=== PATIENT | male | born 1935 | race Caucasian/White ===

== ENCOUNTER → 2016-09-14 | Outpatient (CLI) | payer OTHER ==
[~2016-09-14] MED LIST: AMLO5TAB4 PO; HYDR12.56 PO; TCMD2 PO
[2016-09-14 16:21] LABS: BLOOD UREA NITROGEN 21 mg/dl (7-18); BUN/CREATININE RATIO 19.3 (10-20)
== END | disposition home or self-care (01) ==
LOC: C.LAB 14:56
PROVIDERS: ATTEND Urology
DX: R31.9 Hematuria, unspecified (principal)

== ENCOUNTER → 2016-09-14 | Outpatient (CLI) | payer OTHER | END | disposition home or self-care (01) | LOC: C.LABSPEC 17:11 | PROVIDERS: ATTEND Urology | DX: R31.9 Hematuria, unspecified (principal) ==

== ENCOUNTER → 2016-10-07 | Outpatient (CLI) | payer OTHER ==
[~2016-10-07] MED LIST changes: +OPTIRAY 320 IV PRN
--- NOTE | 2016-10-07 09:42 | DIAGNOSTIC IMAGING REPORT ---
ABDOMEN AND PELVIS CT WITH AND WITHOUT IV CONTRAST, UROGRAM PROTOCOL CT DOSE: 1703.56 mGycm HISTORY: Hematuria. TECHNIQUE: Multiaxial CT images of the abdomen and pelvis were performed both before and after the use of intravenous contrast to evaluate the urinary system. Maximal intensity projection images were performed at the workstation by the radiologist. COMPARISON STUDY: None. FINDINGS: No renal or ureteral calculi. No hydronephrosis. The bilateral renal collecting systems are not well opacified resulting in suboptimal evaluation. However, there are no definite suspicious filling defects. The proximal to mid bilateral ureters are not significantly opacified but are normal in course and caliber. No suspicious filling defects within the distal bilateral ureters. A 3 cm low-density lesion within the lower pole the left kidney does not appear to enhance and likely represents a cyst. 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 The lung bases are clear. Tiny fat-containing bilateral inguinal hernias. The prostate gland is enlarged measuring up to 7.5 cm in diameter. This protrudes into the bladder base. The liver, gallbladder, pancreas, spleen, and adrenal glands are unremarkable. There is a left retroaortic renal vein. No retroperitoneal lymphadenopathy. No bowel wall thickening or obstruction. Colonic diverticulosis. Normal appendix. IMPRESSION: 1. No renal or ureteral stones. No hydronephrosis. 2. No suspicious filling defects seen within the opacified bilateral renal collecting systems, ureters, or bladder with limitations as described above. 3. A 3 cm left lower pole renal cyst. 4. Prostatomegaly. 5. 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 Electronically signed by: Mt Henriquez M.D. 10/07/2016 9:40 AM Dictated Date/Time: 10/07/2016 9:29 AM
== END | disposition home or self-care (01) ==
LOC: C.CTS 08:51
PROVIDERS: ATTEND Urology
DX: R31.9 Hematuria, unspecified (principal); N28.1 Cyst of kidney, acquired; I72.2 Aneurysm of renal artery

== ENCOUNTER 2016-10-18 17:16 | Emergency (ER) | payer OTHER ==
[~2016-10-18] VITALS: Ht 179.1 cm; Wt 83.0 kg
[~2016-10-18 17:16] MED LIST changes: -OPTIRAY 320 IV PRN
[2016-10-18 17:26] VITALS: TEMP 36.8; Ht 179.1 cm; Wt 83.0 kg
[2016-10-18 18:23] LABS: BASO % 0.3 %; BASO ABS # 0.03 K/uL (0-0.2); COMPLETE YES; HEMATOCRIT 43.5 % (42-52); IG% 0.2 %; LYMPH % 22.7 %; LYMPH ABS # 2.36 K/uL (1.2-3.4); MEAN CELL VOLUME 90.6 fL (80-100); MEAN CORPUSCULAR HEMOGLOBIN 31.5 pg (25-34); MEAN CORPUSCULAR HGB CONC 34.7 g/dl (32-36); MONO % 7.9 %; NEUT % 66.9 %; PLATELET COUNT 306 K/uL (130-400); WHITE BLOOD COUNT 10.41 K/uL (4.8-10.8)
[2016-10-18 18:29] LABS: URINE APPEARANCE CLEAR (CLEAR); URINE BILIRUBIN NEG (NEG); URINE COLOR YELLOW; URINE NITRITE NEG (NEG); URINE PH 7.5 (4.5-7.5); URINE SPECIFIC GRAVITY 1.003 (1.000-1.030); UROBILINOGEN NEG (NEG); ZZUR CULT IF INDIC CLEAN CATCH NO
[2016-10-18 18:31] LABS: MANUAL MICROSCOPIC REQUIRED? NO; REVIEW REQ? NO
[2016-10-18 18:46] LABS: BUN/CREATININE RATIO 18.3 (10-20); CREATININE 1.1 mg/dl (0.60-1.40); POTASSIUM 4.1 mmol/L (3.5-5.1)
[2016-10-18 18:51] VITALS: BP 145/72; PULSE 64; O2SAT 95
--- NOTE | 2016-10-18 19:05 | EMERGENCY ROOM VISIT NOTE ---
History Report prepared by Lee: Katerina Norton Under the Supervision of: Dr. Niko Karimi D.O. First contact with patient: 17:39 Chief Complaint: HEMATURIA Stated Complaint: PASSING BLOOD CLOT History of Present Illness The patient is an 81 year old male who presents to the Emergency Room with complaints of persistent hematuria for the past 1 month. He has a history of an enlarged prostate and reports he followed up with his Urologist, Dr. Odom, 2 weeks ago, and produced "unremarkable" urine tests. The hematuria cleared up for approximately 1 week, then came back, so he had a CT scan last week. This morning, he started passing larger clots. He called Dr. Odom's office but could not be seen today, and was referred to the ED for further evaluation. He notes he has been trying to drink a lot of water, and immediately after drinking , his urine seems to clear up, but then the clots come back. The patient notes he is on daily Coumadin. His last INR was checked approximately 1 week ago. He denies any other symptoms at today's visit. 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 A total of 10 systems reviewed and were otherwise negative. Past Medical & Surgical Medical Problems: (1) BPH (benign prostatic hyperplasia) (2) Enlarged prostate Family History Normal Social History Smoking Status: Former Smoker Alcohol Use: none Drug Use: none Marital Status: Housing Status: lives with significant other Occupation Status: retired Current/Historical Medications Scheduled Amlodipine Besylate (Norvasc), 5 MG PO DAILY Hydrochlorothiazide (Hctz), 12.5 MG PO DAILY Warfarin Sod (Coumadin), 4 MG PO WK Warfarin Sod (Coumadin), 2 MG PO [id number] Allergies Coded Allergies: No Known Allergies (Unverified , 10/18/16) Physical Exam Vital Signs Date Time Temp Pulse Resp B/P Pulse Ox O2 Delivery O2 Flow Rate FiO2 10/18/16 18:51 64 18 145/72 95 Room Air 10/18/16 17:26 36.8 81 18 168/90 95 Room Air Physical Exam CONSTITUTIONAL/VITAL SIGNS: Reviewed / noted above. GENERAL: Non-toxic in appearance. INTEGUMENTARY: Warm, dry, and [place]. HEAD: Normocephalic. EYES: without scleral icterus or trauma. ENT/OROPHARYNX: clear and moist. LYMPHADENOPATHY/NECK: Is supple without lymphadenopathy or meningismus. RESPIRATORY: Lungs clear and equal. CARDIOVASCULAR: Regular rate and rhythm. GI/ABDOMEN: Soft and nontender. No organomegaly or pulsatile mass. No rebound or guarding. Normal bowel sounds. EXTREMITIES: Warm and well perfused. BACK: No CVA tenderness. NEUROLOGICAL: Intact without focal deficits. PSYCHIATRIC: normal affect. MUSCULOSKELETAL: Normally developed with good muscle tone. Medical Decision & Procedures Laboratory Results 10/18/16 18:00 Red Blood Count 4.80, Mean Corpuscular Volume 90.6, Mean Corpuscular Hemoglobin 31.5, Mean Corpuscular Hemoglobin Concent 34.7, Mean Platelet Volume 10.0, Neutrophils (%) (Auto) 66.9, Lymphocytes (%) (Auto) 22.7, Monocytes (%) (Auto) 7.9, Eosinophils (%) (Auto) 2.0, Basophils (%) (Auto) 0.3, Neutrophils # (Auto) 6.97, Lymphocytes # (Auto) 2.36, Monocytes # (Auto) 0.82, Eosinophils # (Auto) 0.21, Basophils # (Auto) 0.03 10/18/16 18:00 Test 10/18/16 18:00 10/18/16 18:08 10/18/16 18:50 White Blood Count 10.41 K/uL (4.8-10.8) Red Blood Count 4.80 M/uL (4.7-6.1) Hemoglobin 15.1 g/dL (14.0-18.0) Hematocrit 43.5 % (42-52) Mean Corpuscular Volume 90.6 fL (80-100) Mean Corpuscular Hemoglobin 31.5 pg (25-34) Mean Corpuscular Hemoglobin Concent 34.7 g/dl (32-36) Platelet Count 306 K/uL (130-400) Mean Platelet Volume 10.0 fL (7.4-10.4) Neutrophils (%) (Auto) 66.9 % Lymphocytes (%) (Auto) 22.7 % Monocytes (%) (Auto) 7.9 % Eosinophils (%) (Auto) 2.0 % Basophils (%) (Auto) 0.3 % Neutrophils # (Auto) 6.97 K/uL (1.4-6.5) Lymphocytes # (Auto) 2.36 K/uL (1.2-3.4) Monocytes # (Auto) 0.82 K/uL (0.11-0.59) Eosinophils # (Auto) 0.21 K/uL (0-0.5) Basophils # (Auto) 0.03 K/uL (0-0.2) RDW Standard Deviation 46.7 fL (36.4-46.3) RDW Coefficient of Variation 14.1 % (11.5-14.5) Immature Granulocyte % (Auto) 0.2 % Immature Granulocyte # (Auto) 0.02 K/uL (0.00-0.02) Anion Gap 5.0 mmol/L (3-11) Est Creatinine Clear Calc Drug Dose 54.3 ml/min Estimated GFR () 72.1 Estimated GFR (Non- 62.2 BUN/Creatinine Ratio 18.3 (10-20) Calcium Level 9.0 mg/dl (8.5-10.1) Urine Color YELLOW Urine Appearance CLEAR (CLEAR) Urine pH 7.5 (4.5-7.5) Urine Specific [place] 1.003 (1.000-1.030) Urine Protein NEG (NEG) Urine Glucose (UA) NEG (NEG) Urine Ketones NEG (NEG) Urine Occult Blood 3+ (NEG) Urine Nitrite NEG (NEG) Urine Bilirubin NEG (NEG) Urine Urobilinogen NEG (NEG) Urine Leukocyte Esterase TRACE (NEG) Urine WBC (Auto) 1-5 /hpf (0-5) Urine RBC (Auto) 5-10 /hpf (0-4) Urine Hyaline Casts (Auto) 0 /lpf (0-5) Urine Epithelial Cells (Auto) 5-10 /lpf (0-5) Urine Bacteria (Auto) NEG (NEG) Bedside Prothrombin Time INR 3.1 (0.9-1.1) Laboratory results as stated above per my review. ED Course 1739: Previous medical records were reviewed. The patient was evaluated in room B9. A complete history and physical examination was performed. 1851: Nursing informed me the patients INR was 3.1. 5: I reevaluated the patient. He is resting comfortably. I discussed his results and discharge instructions and he verbalized complete understanding and agreement. Medical Decision The differential diagnoses considered include UTI, bladder tumor, elevated INR and kidney stone. This is an 81-year-old male who presents to the ED with a chief complaint of hematuria. The patient states that he is seeing Dr. Barillas for hematuria over the past month. The patient states that he had a CT scan last week and also some blood work. He has had a history of 3 prostate surgeries. He states that he had some hematuria this morning and then it resolved and a little tonight and then it resolved again. He is scheduled to have a cystoscopy sometime in the near future. His vital signs are normal. His exam was unremarkable. His INR is 3.1. He is on Coumadin for history of DVT. CBC is normal. PRP is normal. Urine did not show any evidence of infection. There was 3+ blood and 5-10 RBCs. The patient was told results. He is felt to be stable for discharge and outpatient follow-up with Dr. Barillas. Impression Primary Impression: Hematuria Scribe Attestation The scribe's documentation has been prepared under my direction and personally reviewed by me in its entirety. I confirm that the note above accurately reflects all work, treatment, procedures, and medical decision making performed by me. Departure Information Dispostion Home / Self-Care Referrals Osmani Valencia D.O. (PCP) Dylon Odom MD Patient Instructions My [facility] Additional Instructions Follow-up with Dr. Odom for continued evaluation of your hematuria. Return for any additional concerns or worsening.
== END 2016-10-18 19:19 | disposition home or self-care (01) ==
LOC: C.EDB 17:16
DX: R31.9 Hematuria, unspecified (principal); N40.0 Benign prostatic hyperplasia without lower urinary tract symptoms; Z87.891 Personal history of nicotine dependence; Z79.01 Long term (current) use of anticoagulants; Z79.899 Other long term (current) drug therapy

== ENCOUNTER → 2017-10-10 | Outpatient (CLI) | payer OTHER | END | disposition home or self-care (01) | LOC: C.PATHSPEC 16:52 | PROVIDERS: ATTEND Urology | DX: R31.9 Hematuria, unspecified (principal) ==

== ENCOUNTER 2020-03-07 11:26 | Inpatient (IN) ==
[2020-03-07] MEDS ORDERED: SODIUM CHLORIDE 0.9% 500 ML IV ONE ×2 (12:14→15:58)
[2020-03-07 12:54] LABS: Basophils # (auto) 0.01 K/uL (0-0.2); Basophils % (auto) 0.1 %; Eosinophils # (auto) 0.04 K/uL (0-0.5); Eosinophils % (auto) 0.3 %; Hematocrit (blood only) 40.7 % (42-52); Hemoglobin 13.5 g/dL (14.0-18.0); Immature Granulocytes # (auto) 0.04 K/uL (0.00-0.02); Immature Granulocytes % (auto) 0.3 %; Lymphocytes # (auto) 1.38 K/uL (1.2-3.4); Lymphocytes % (auto) 9.8 %; Mean Corpuscular Hemoglobin 29.3 pg (25-34); Mean Corpuscular Hgb Conc 33.2 g/dL (32-36); Mean Corpuscular Volume 88.5 fL (80-100); Mean Platelet Volume 9.8 fL (7.4-10.4); Neutrophils # (auto) 11.95 K/uL (1.4-6.5); Neutrophils % (auto) 84.5 %; Platelet Count 342 K/uL (130-400); RDW Coefficient of Variation 14.6 % (11.5-14.5); RDW Standard Deviation 47.2 fL (36.4-46.3); White Blood Count 14.12 K/uL (4.8-10.8)
[2020-03-07 13:03] LABS: INR 2.4 (0.9-1.1); Prothrombin Time 23.8 Seconds (9.0-12.0)
[2020-03-07 13:10] LABS: Alanine Aminotransferase 22 U/L (12-78); Albumin Level 3.9 gm/dl (3.4-5.0); Aspartate Aminotransferase 20 U/L (15-37); BUN Creatinine Ratio 15.6 (10-20); Blood Urea Nitrogen 20 mg/dl (7-18); Calcium 9.4 mg/dl (8.5-10.1); Carbon Dioxide 23 mmol/L (21-32); Chloride 104 mmol/L (98-107); Est GFR (African American) 57.3; Est GFR (Non-African American) 49.4; Glucose 113 mg/dl (70-99); Potassium 3.9 mmol/L (3.5-5.1); Sodium 137 mmol/L (136-145)
[2020-03-07 13:11] LABS: Appearance Urine Turbid (Clear); Color Urine Red
[2020-03-07 13:12] LABS: Protein Urine Positive (Negative); Specific Gravity Urine 1.027 (1.000-1.030)
[2020-03-07 13:13] LABS: Alkaline Phosphatase 111 U/L (45-117); Bilirubin,Total 0.6 mg/dl (0.2-1); Globulin 4.1 gm/dl (2.5-4.0)
[2020-03-07 13:13] LABS: Sulfosalicylic Acid Urine Positive (Negative)
[2020-03-07 13:16] LABS: Epithelial Cell Urine 0-5 /lpf (0-5); RBC Urine >30 /hpf (0-4); WBC Urine >30 /hpf (0-5)
[2020-03-07 13:17] LABS: Bacteria Urine Negative (Negative)
[2020-03-07] MEDS ORDERED: IOVERSOL 100ml IV ONE (13:52)
--- NOTE | 2020-03-07 14:21 | CT Scan Report ---
CT OF THE ABDOMEN AND PELVIS WITH CONTRAST CLINICAL HISTORY: Hematuria. COMPARISON STUDY: CT of the abdomen and pelvis October 07, 2016. TECHNIQUE: Following IV administration of 94 mL of Optiray-320, axial images of the abdomen and pelvi s were obtained from the lung bases to the proximal femurs. Images were reviewed in the axial, sagitt al, and coronal planes. IV contrast was administered without complication. Automated exposure contro l was utilized for the study. A dose lowering technique was utilized adhering to the principles of A JOSUE. CT DOSE: 492.72 mGy.cm FINDINGS: Lung bases are unremarkable. The liver, spleen, adrenal glands, right kidney and pancreas a re normal. A 1.4 cm lesion within the lower pole of the left kidney measures above water attenuation but this has decreased in size since CT of October 07, 2016. This likely reflects a partially collapsed cyst. There is no biliary or pancreatic ductal dilatation. There is colonic diverticulosis without e vidence for acute diverticulitis. There is no lymphadenopathy. Prostate is markedly enlarged, measuri ng 8.1 cm in transverse dimension. The gland is heterogeneous. There is asymmetric enhancement within the left anterior aspect of the gland. There is a large amount of hyperdense material within the pro state. This favors hemorrhage. Within the left posterior aspect of the bladder, there is an area of i ncreased attenuation. Active extravasation cannot be excluded. There is no hydronephrosis. No renal, ureteral or bladder calculi are present. A 9 mm left renal artery aneurysm is unchanged since CT of A pril 2016. No upper tract urothelial lesions are identified although sensitivity is diminished on this portal venous phase exam. A small 5 mm sclerotic focus within the left ischial tuberosity is ne w since prior CT. IMPRESSION: 1. Markedly enlarged heterogeneous prostate. Large amount of hyperdense material within the bladder s uggestive of clot. Underlying mass cannot be excluded. Small foci of increased attenuation within the left posterior aspect of the bladder could reflect active extravasation. No hydronephrosis. No urina ry calculi. 2. 1.4 cm hypodense left renal lesion which likely reflects a partially collapsed cyst when correlati ng with prior CT. 3. New indeterminate 5 mm sclerotic lesion within the left ischial tuberosity. ACT 112: Negative or not required by law. Electronically signed by: Antonio Hairston M.D. 03/07/2020 2:20 PM
--- NOTE | 2020-03-07 18:29 | Urology Consultation ---
Date of Consultation March 07, 2020 Assessment & Plan (1) Hematuria: GH with retention. Hx of TURP x 2 with GH in past. Never as severe. Seen urgently in ER due to severity of issues. Difficult flores. [address] by myself with extensive clot irrigation and evacuation. Patient tolerated well. Was prepped and draped in standard fashion. Patient running clear with light pink urine and no further clot. CBI to titrate to clear overnight. Admitted to Hospitalist after irrigation for monitoring. On Coumadin and normal level. Monitor. Complicated history was reviewed and summarized as above. All imaging reviewed. Monitor. Present on Admission?: Yes (2) BPH (benign prostatic hyperplasia): (3) Urinary retention: History of Present Illness History of Present Illness Consult for urinary issues with hematuria and clot retention. Patient has mild to moderate discomfort in pelvis and groin going to back and side in waves at baseline with occ episodes of severe pain. Is dealing with acute illness due to retention with significant spasms. Has been deconditioned from this. Has decreased mobility significantly with acute issues. Denies significant previous episodes of hematuria. Is still able to void. Had surgery for detacted retina. History of DVT with coumadin. GH has happened multiple times in past but never as severe. Was golfing and bleeding started and dealt with for last 2-3 days before getting severe last night into this morning. Has had some minor urinary issues in the past. Had TURP x 2 over last 20 years. \ No severe nausea or vomiting. Currently no fevers. No significant family history of malignancy. Drastic improvement after irrigation and clot evacuation Allergies Allergy/AdvReac Type Severity Reaction Status Date / Time No Known Allergies Allergy Unverified 03/07/20 14:08 Home Medications Home Medications Medication Instructions Recorded Confirmed Type amlodipine 5 mg tablet 5 mg PO QAM 06/05/19 03/07/20 History warfarin 2 mg tablet 2 mg PO QAM 06/05/19 03/07/20 History Patient History Medical History No pertinent past medical history Surgical History Hx of cataract surgery Family History Brother Colorectal cancer Father Lung cancer Grandfather (Paternal) Lung cancer Social History Smoking Status: Never smoker Hx Alcohol Use: Yes marital status: current occupational status: retired Feels Safe at Home: Yes Review of Systems Review of Systems: All systems reviewed & are unremarkable except as noted in HPI & below Physical Exam Physical Exam: General: Alert and oriented x 3 in no acute distress. Patient is well nourished and well kept. HEENT: Normocephalic Atraumatic. Inspection normal. Cranial Nerves 2-12 Grossly intact. Nares are clear. Neck is supple. Normal inspection of face. Normal inspection of neck. Neurologic: No deficits on inspection. Baseline for motor function and sensory. Psychologic: Normal affect. Respiratory: Nonlabored. No use of accessory muscles. No tachypnea or dyspnea. Cardiovascular: No tachycardia Skin: [place] and Dry. No rashes or visible lesions. Extremities: Moving without issues. No motor deficits on inspection Lymphatics: No edema Abdomen: Soft Non-distended. No acites. No rebound or guarding. : Large clot evacuated. CBI through [address] 24Fr[address] Light pink after irrigating. Results & Data ([facility]) Vital Signs (Past 12 Hours) Vital Signs Temp Pulse Pulse Resp BP Pulse Ox 03/07/20 17:00 104 H 20 130/64 97 03/07/20 15:00 78 20 128/79 96 03/07/20 13:11 81 20 131/83 95 03/07/20 11:46 36.7 C 92 H 17 100 PG Care Time/CCT Total # of Minutes Spent Total Time Spent with Patient: Total time spent is greater than 50% in coordination of care (as documented) at patient's floor/unit and/or counseling patient: Coding Level of Care Code 83947 Inpt Consult Level 5 Diagnoses Hematuria R31.9 BPH (benign prostatic hyperplasia) N40.0 Urinary retention R33.9
--- NOTE | 2020-03-07 19:47 | Emergency Department Note ---
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 The patient denies any fevers, chills, cough, congestion, nausea, vomiting, diarrhea. The patient reports he walked into his urologist office and was referred to emergency dep artment. On arrival the patient is in no acute distress, afebrile stable vital signs. He has mild discomfort of his suprapubic area without any discrete tenderness. By the patient's report feeling as though he cannot urinate post void bladder scan demonstrated only 200-300cc. WBC 14, nonspecific. H/H 13.5/40.7 approximate 2 prior values, platelets within normal limits. INR is therapeutic at 2.4. Chemistry without acidosis. Electrolytes and LFTs unremarkable. UA without evidence of infection but with RBCs. CT done pelvis was performed demonstrates enlarged heterogenous prostate. There is large amount of hyperdense material in the bladder suggestive of clot. There is question of a small foci of increased attenuation which could reflect active extravasation. Of note, there is no hydronephrosis or urinary calculi. On reevaluation the patient continued to complain of urgency and and feeling as though he could not urinate. However post void bladder scan again without any significant retention. Attempts at catheterization to help relieve some of his urgency which is likely related to passing of clots but was unsuccessful despite repeat attempts with coud catheter by nursing. I did review the case with urology on-call, Dr. Barber, who did agree to come to emergency department and placed three-way catheter for CBI. [facility] service was consulted who admitted the patient for further management. Triage Nursing notes reviewed and agree them. Prior medical records reviewed Vital Signs: reviewed and remarkable for no significant abnormalities Differential diagnosis: Renal colic, UTI, appendicitis, diverticulitis, mesenteric ischemia, aortic pathology, infections, inflammatory bowel disease, PUD, biliary pathology, as well as other pathologies. ER treatment provided: See below. Diagnostics interpreted by me: Cardiac Monitoring: An order for continuous cardiac monitoring was placed and demonstrated NSR, 85 bpm, no ectopy. Laboratory studies: See below Imaging studies: CT OF THE ABDOMEN AND PELVIS WITH CONTRAST CLINICAL HISTORY: Hematuria. COMPARISON STUDY: CT of the abdomen and pelvis October 07, 2016. TECHNIQUE: Following IV administration of 94 mL of Optiray-320, axial images of the abdomen and pelvis were obtained from the lung bases to the proximal femurs. Images were reviewed in the axial, sagittal, and coronal planes. IV contrast was administered without complication. Automated exposure control was utilized for the study. A dose lowering technique was utilized adhering to the principles of ALARA. CT DOSE: 492.72 mGy.cm FINDINGS: Lung bases are unremarkable. The liver, spleen, adrenal glands, right kidney and pancreas are normal. A 1.4 cm lesion within the lower pole of the left kidney measures above water attenuation but this has decreased in size since CT of October 07, 2016. This likely reflects a partially collapsed cyst. There is no biliary or pancreatic ductal dilatation. There is colonic diverticulosis without evidence for acute diverticulitis. There is no lymphadenopathy. Prostate is markedly enlarged, measuring 8.1 cm in transverse dimension. The gland is heterogeneous. There is asymmetric enhancement within the left anterior aspect of the gland. There is a large amount of hyperdense material within the prostate. This favors hemorrhage. Within the left posterior aspect of the bladder, there is an area of increased attenuation. Active extravasation cannot be excluded. There is no hydronephrosis. No renal, ureteral or bladder calculi are present. 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 No upper tract urothelial lesions are identified although sensitivity is diminished on this portal venous phase exam. A small 5 mm sclerotic focus within the left ischial tuberosity is new since prior CT. IMPRESSION: 1. Markedly enlarged heterogeneous prostate. Large amount of hyperdense material within the bladder suggestive of clot. Underlying mass cannot be excluded. Small foci of increased attenuation within the left posterior aspect of the bladder could reflect active extravasation. No hydronephrosis. No urinary calculi. 2. 1.4 cm hypodense left renal lesion which likely reflects a partially collapsed cyst when correlating with prior CT. 3. New indeterminate 5 mm sclerotic lesion within the left ischial tuberosity. Consultation(s): Urology on-call, Dr. Barber. [facility] hospitalist service. HPI: The patient is a pleasant 85-year-old gentleman with a past medical history of BPH, h/o TURP, history of DVT on Coumadin who presents emergency department with complaints of gross bloody urine that began last night. The patient denies any fevers, chills, cough, congestion, nausea, vomiting, diarrhea. The patient reports he walked into his urologist office and was referred to emergency depar tment. ROS: See above HPI for pertinent positives & negatives. A total of 10 systems reviewed and were otherwise negative. PAST MEDICAL HISTORY:See Below PAST SURGICAL HISTORY:See Below FAMILY HISTORY:See Below SOCIAL HISTORY:See Below HOME MEDICATIONS:See Below ALLERGIES:See Below VITALS:See Below PHYSICAL EXAMINATION: GENERAL: Awake, alert, well-appearing, in no distress HENT: Normocephalic, atraumatic. Oropharynx unremarkable. EYES: Sclera non-icteric. Mild right injection of left conjunctiva s/p retinal surgery. NECK: Supple. No nuchal rigidity. FROM. No JVD. RESPIRATORY: Clear to auscultation. CARDIAC: Regular rate, normal rhythm. Extremities warm and well perfused. Pulses equal. ABDOMEN: Soft, non-distended. Mild suprapubic discomfort without discrete tenderness to palpation. No rebound or guarding. No masses. RECTAL: Deferred. MUSCULOSKELETAL: Chest examination reveals no tenderness. The back is symmetrical on inspection without obvious abnormality. There is no CVA tenderness to palpation. No joint edema. LOWER EXTREMITIES: Calves are equal size bilaterally and non-tender. No edema. No discoloration. NEURO: Normal sensorium. No sensory or motor deficits noted. SKIN: No rash or jaundice noted. 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 Surgical History History of detached retina repair Hx of cataract surgery S/P TURP Family History Brother Colorectal cancer Father Lung cancer Grandfather (Paternal) Lung cancer Social History Smoking Status: Former smoker Hx Alcohol Use: No Hx Substance Use: No Preferred Language: [place] Communication Ability: Effective Car Groomer Required: No Beliefs That Will Affect Care: None marital status: Current Living Situation: Spouse current occupational status: retired Feels Safe at Home: Yes Safety Concerns: Feels Safe At This Time Allergies Allergies Allergy/AdvReac Type Severity Reaction Status Date / Time No Known Allergies Allergy Unverified 03/07/20 14:08 Home Meds Home Medications Medication Instructions Recorded Confirmed amlodipine 5 mg tablet 5 mg PO QAM 06/05/19 03/07/20 warfarin 2 mg tablet 2 mg PO QAM 06/05/19 03/07/20 Results & Data (ED) Vital Signs Vital Signs - 24 hr 03/07/20 11:46 03/07/20 13:11 03/07/20 15:00 Temperature 36.7 C Temperature Source Oral Pulse Rate 92 H Pulse Rate [Finger] 81 78 Respiratory Rate 17 20 20 Respiratory Effort / Characteristics Non-Labored Non-Labored Spontaneous Non-Labored Spontaneous Respiratory Depth Normal Normal Respiratory Pattern Regular Regular Regular Blood Pressure [Left Arm] 131/83 128/79 Blood Pressure Mean [Left Arm] 99 95 Pulse Oximetry 100 95 96 Oxygen Delivery Method Room Air Room Air Room Air Sepsis Recent Fever Within 48 Hours No Sepsis New/Unexplained Change in Mental Status N/A Sepsis Action Taken by Nursing No Action Required 03/07/20 17:00 Temperature Temperature Source Pulse Rate Pulse Rate [Finger] 104 H Respiratory Rate 20 Respiratory Effort / Characteristics Non-Labored Spontaneous Respiratory Depth Normal Respiratory Pattern Regular Blood Pressure [Left Arm] 130/64 Blood Pressure Mean [Left Arm] 86 Pulse Oximetry 97 Oxygen Delivery Method Room Air Sepsis Recent Fever Within 48 Hours Sepsis New/Unexplained Change in Mental Status Sepsis Action Taken by Nursing Laboratory Data Attestation: I reviewed the patient's lab results. Result diagrams: 03/07/20 12:45 03/07/20 12:45 Lab Results 03/07/20 03/07/20 03/07/20 Range/Units 12:45 12:45 12:45 WBC 14.12 H (4.8-10.8) K/uL RBC 4.60 L (4.7-6.1) M/uL Hgb 13.5 L (14.0-18.0) g/dL Hct 40.7 L (42-52) % MCV 88.5 (80-100) fL MCH 29.3 (25-34) pg MCHC 33.2 (32-36) g/dL RDW Std Deviation 47.2 H (36.4-46.3) fL RDW Coeff of Dre 14.6 H (11.5-14.5) % Plt Count 342 (130-400) K/uL MPV 9.8 (7.4-10.4) fL Immature Gran % (Auto) 0.3 % Neut % (Auto) 84.5 % Lymph % (Auto) 9.8 % Hettinger % (Auto) 5.0 % Eos % (Auto) 0.3 % Baso % (Auto) 0.1 % Neut # (Auto) 11.95 H (1.4-6.5) K/uL Lymph # (Auto) 1.38 (1.2-3.4) K/uL Hettinger # (Auto) 0.70 H (0.11-0.59) K/uL Eos # (Auto) 0.04 (0-0.5) K/uL Baso # (Auto) 0.01 (0-0.2) K/uL Immature Gran # (Auto) 0.04 H (0.00-0.02) K/uL PT 23.8 H (9.0-12.0) Seconds INR 2.4 H (0.9-1.1) Sodium 137 (136-145) mmol/L Potassium 3.9 (3.5-5.1) mmol/L Chloride 104 (98-107) mmol/L Carbon Dioxide 23 (21-32) mmol/L Anion Gap 10.0 (3-11) BUN 20 H (7-18) mg/dl Creatinine 1.30 (0.6-1.4) mg/dl Est Cr Clr Drug Dosing Not Reportable Est GFR ( Amer) 57.3 Est GFR (Non-Af Amer) 49.4 BUN/Creatinine Ratio 15.6 (10-20) Glucose 113 H (70-99) mg/dl Calcium 9.4 (8.5-10.1) mg/dl Total Bilirubin 0.6 (0.2-1) mg/dl AST 20 (15-37) U/L ALT 22 (12-78) U/L Alkaline Phosphatase 111 (45-117) U/L Total Protein 8.0 (6.4-8.2) gm/dl Albumin 3.9 (3.4-5.0) gm/dl Globulin 4.1 H (2.5-4.0) gm/dl Albumin/Globulin Ratio 1.0 (0.9-2) Urine Color Urine Appearance (Clear) Urine pH (4.5-7.5) Ur Specific Gray (1.000-1.030) Urine Protein (Negative) Urine Glucose (UA) (Negative) Urine Ketones (Negative) Urine Blood (Negative) Urine Nitrite (Negative) Urine Bilirubin (Negative) Urine Urobilinogen (Negative) Ur Leukocyte Esterase (Negative) Urine RBC (0-4) /hpf Urine WBC (0-5) /hpf Ur Epithelial Cells (0-5) /lpf Urine Bacteria (Negative) 03/07/20 Range/Units 12:50 WBC (4.8-10.8) K/uL RBC (4.7-6.1) M/uL Hgb (14.0-18.0) g/dL Hct (42-52) % MCV (80-100) fL MCH (25-34) pg MCHC (32-36) g/dL RDW Std Deviation (36.4-46.3) fL RDW Coeff of Dre (11.5-14.5) % Plt Count (130-400) K/uL MPV (7.4-10.4) fL Immature Gran % (Auto) % Neut % (Auto) % Lymph % (Auto) % Hettinger % (Auto) % Eos % (Auto) % Baso % (Auto) % Neut # (Auto) (1.4-6.5) K/uL Lymph # (Auto) (1.2-3.4) K/uL Hettinger # (Auto) (0.11-0.59) K/uL Eos # (Auto) (0-0.5) K/uL Baso # (Auto) (0-0.2) K/uL Immature Gran # (Auto) (0.00-0.02) K/uL PT (9.0-12.0) Seconds INR (0.9-1.1) Sodium (136-145) mmol/L Potassium (3.5-5.1) mmol/L Chloride (98-107) mmol/L Carbon Dioxide (21-32) mmol/L Anion Gap (3-11) BUN (7-18) mg/dl Creatinine (0.6-1.4) mg/dl Est Cr Clr Drug Dosing Est GFR ( Amer) Est GFR (Non-Af Amer) BUN/Creatinine Ratio (10-20) Glucose (70-99) mg/dl Calcium (8.5-10.1) mg/dl Total Bilirubin (0.2-1) mg/dl AST (15-37) U/L ALT (12-78) U/L Alkaline Phosphatase (45-117) U/L Total Protein (6.4-8.2) gm/dl Albumin (3.4-5.0) gm/dl Globulin (2.5-4.0) gm/dl Albumin/Globulin Ratio (0.9-2) Urine Color Red Urine Appearance Turbid A (Clear) Urine pH (4.5-7.5) Ur Specific Gray 1.027 (1.000-1.030) Urine Protein Positive H (Negative) Urine Glucose (UA) (Negative) Urine Ketones (Negative) Urine Blood (Negative) Urine Nitrite (Negative) Urine Bilirubin (Negative) Urine Urobilinogen (Negative) Ur Leukocyte Esterase (Negative) Urine RBC >30 H (0-4) /hpf Urine WBC >30 H (0-5) /hpf Ur Epithelial Cells 0-5 (0-5) /lpf Urine Bacteria Negative (Negative) Administered Medications Discontinued Medications Sodium Chloride (Nss) 500 mls @ 999 mls/hr IV .Q31M ONE Stop: 03/07/20 12:44 Last Infusion: 03/07/20 13:45 Dose: 0 mls/hr Documented by: [id number] Admin: 03/07/20 13:08 Dose: 999 mls/hr Documented by: [id number] Sodium Chloride (Nss) 500 mls @ 999 mls/hr IV .Q31M ONE Stop: 03/07/20 16:28 Last Infusion: 03/07/20 17:52 Dose: 0 mls/hr Documented by: [id number] Admin: 03/07/20 17:18 Dose: 999 mls/hr Documented by: [id number] Ioversol (Ioversol 100ml) 94 ml IV ONCE ONE Stop: 03/07/20 13:53 Last Admin: 03/07/20 13:52 Dose: 94 ml Documented by: [id number] Blood Pressure Blood Pressure Findings: Normal blood pressure Blood Pressure Disposition: further management by hospitalist Discharge Plan Visit Data Chief Complaint: Hematuria Stated Complaint: PEEING BLOOD ED Provider: Clay Velasquez Discharge Problem: Hematuria, Abnormal CT scan, pelvis, 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
[2020-03-07] MEDS ORDERED: ACETAMINOPHEN 325 MG TAB PO PRN (20:51)
[2020-03-07] MEDS ORDERED: ONDANSETRON INJ 2 MG/ML 2 ML VIAL IV PRN (20:51)
--- NOTE | 2020-03-07 20:58 | History & Physical Report ---
Date of Service March 07, 2020 Assessment & Plan (1) Hematuria: CBI per Urology to continue overnight. Monitor H/H in am and transfuse as needed. (2) Urinary retention: Flores placed and draining well. (3) BPH (benign prostatic hyperplasia): h/o this s/p TURP with gross hematuria issues in the past. Plan per Urology. 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 Will restart in a few days. 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 (6) HTN (hypertension): (7) Abnormal CT scan, pelvis: There is a small sclerotic lesion on ischial tuberosity which is new. Will need workup as outpatient. (8) DVT prophylaxis: SCDs Full Code Dispo-to home when medically stable. Christianne Mcmullen DO [facility] Hospitalist Admission and Anticipated Discharge Date Admission Date: March 07, 2020 History of Present Illness Chief Complaint: gross hematuria and acute urinary retention Primary Care Provider: Osmani Valencia DO 85 yo M with a h/o TURP for BPH in the past x 2 and a h/o gross hematuria in the past. He is on coumadin for a recurrent DVT and has had trials of being off this but the blood clot in his leg would reoccur. INR is 2.4 today. He reports feeling well yesterday and played a round of golf with friends, when afterwards he noted blood in his urine. This was painless and he continued to drink water in an effort to stay hydrated and flush this through. At some point he developed acute urinary retention which prompted him to present to the ER. He denies any other symptoms including no chest pain, SOB, n/v, lightheadedness, etc. Urology was contacted and a flores was placed which was notably difficult to insert. CBI was started in the ER and he was recommended for admission. The urine turned clear and he was hemodynamically stable. No vitamin K was given and coumadin was held. He was stating he was hungry and was admitted to the hospitalist service and given a diet with Urology to see him in the morning. 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 Surgical History History of detached retina repair Hx of cataract surgery S/P TURP Family History Brother Colorectal cancer Father Lung cancer Grandfather (Paternal) Lung cancer Social History Smoking Status: Former smoker Hx Alcohol Use: No Hx Substance Use: No Preferred Language: [place] Communication Ability: Effective Wire Inserter Required: No Beliefs That Will Affect Care: None marital status: Current Living Situation: Spouse current occupational status: retired Feels Safe at Home: Yes Safety Concerns: Feels Safe At This Time Review of Systems Review of Systems: All systems reviewed & are unremarkable except as noted in HPI & below Physical Exam Physical Exam: CONSTITUTIONAL: WNWD, vitals as above, generally well- appearing EYES: pupils are equal and round bilaterally, normal conjunctivae, no scleral icterus ENT: external ear and nose normal, oropharynx clear, MMM RESPIRATORY: clear to auscultation bilaterally, no crackles, rales or wheezes, normal respiratory effort CARDIOVASCULAR: regular rate and rhythm, S1 and 2 heard without murmurs, gallops or rubs, no JVD, no peripheral edema, nondistended, no guarding MUSCULOSKELETAL: strength 5/5 throughout, head is normocephalic and atraumatic, neck supple, normal palpation of chest wall without tenderness SKIN: warm and dry NEUROLOGIC: No facial palsy, no dysarthria. CN 2-12 grossly intact, normal cognition, normal speech, no tremor, no gross focal deficits. PSYCHIATRIC: alert cooperative and oriented to person, place and time. Results & Data Results & Data ([facility]) Vital Signs (Past 12 Hours) Vital Signs Temp Pulse Pulse Resp BP BP Pulse Ox 03/07/20 20:33 36.7 C 89 20 152/74 H 96 03/07/20 19:54 89 18 139/76 97 03/07/20 19:19 91 H 21 132/87 96 03/07/20 17:00 104 H 20 130/64 97 03/07/20 15:00 78 20 128/79 96 03/07/20 13:11 81 20 131/83 95 03/07/20 11:46 36.7 C 92 H 17 100 Laboratory Results Short CBC 03/07/20 Range/Units 12:45 WBC 14.12 H (4.8-10.8) K/uL Hgb 13.5 L (14.0-18.0) g/dL Hct 40.7 L (42-52) % Plt Count 342 (130-400) K/uL BMP 03/07/20 12:45 Sodium 137 Potassium 3.9 Chloride 104 Carbon Dioxide 23 BUN 20 H Creatinine 1.30 Glucose 113 H Calcium 9.4 Liver Function 03/07/20 Range/Units 12:45 Total Bilirubin 0.6 (0.2-1) mg/dl AST 20 (15-37) U/L ALT 22 (12-78) U/L Alkaline Phosphatase 111 (45-117) U/L Albumin 3.9 (3.4-5.0) gm/dl Urine 03/07/20 Range/Units 12:50 Urine Color Red Urine Appearance Turbid A (Clear) Urine pH (4.5-7.5) Ur Specific [place] 1.027 (1.000-1.030) Urine Protein Positive H (Negative) Urine Glucose (UA) (Negative) Diagnostic Findings CT OF THE ABDOMEN AND PELVIS WITH CONTRAST CLINICAL HISTORY: Hematuria. COMPARISON STUDY: CT of the abdomen and pelvis October 07, 2016. CT DOSE: 492.72 mGy.cm FINDINGS: Lung bases are unremarkable. The liver, spleen, adrenal glands, right kidney and pancreas are normal. A 1.4 cm lesion within the lower pole of the left kidney measures above water attenuation but this has decreased in size since CT of October 07, 2016. This likely reflects a partially collapsed cyst. There is no biliary or pancreatic ductal dilatation. There is colonic diverticulosis without evidence for acute diverticulitis. There is no lymphadenopathy. Prostate is markedly enlarged, measuring 8.1 cm in transverse dimension. The gland is heterogeneous. There is asymmetric enhancement within the left anterior aspect of the gland. There is a large amount of hyperdense material within the prostate. This favors hemorrhage. Within the left posterior aspect of the bladder, there is an area of increased attenuation. Active extravasation cannot be excluded. There is no hydronephrosis. No renal, ureteral or bladder calculi are present. 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 No upper tract urothelial lesions are identified although sensitivity is diminished on this portal venous phase exam. A small 5 mm sclerotic focus within the left ischial tuberosity is new since prior CT. IMPRESSION: 1. Markedly enlarged heterogeneous prostate. Large amount of hyperdense material within the bladder suggestive of clot. Underlying mass cannot be excluded. Small foci of increased attenuation within the left posterior aspect of the bladder could reflect active extravasation. No hydronephrosis. No urinary calculi. 2. 1.4 cm hypodense left renal lesion which likely reflects a partially collapsed cyst when correlating with prior CT. 3. New indeterminate 5 mm sclerotic lesion within the left ischial tuberosity. Code Status & VTE Plan VTE Prophylaxis Plan VTE Prophylaxis will be ordered: Yes
[2020-03-08] MEDS ORDERED: TRAMADOL HCL 50 MG TABLET PO PRN (00:37)
[2020-03-08 07:55] LABS: INR 2.3 (0.9-1.1); Prothrombin Time 23.5 Seconds (9.0-12.0)
[2020-03-08 08:11] LABS: Hematocrit (blood only) 31.1 % (42-52); Hemoglobin 10.3 g/dL (14.0-18.0); Mean Corpuscular Hemoglobin 29.4 pg (25-34); Mean Corpuscular Hgb Conc 33.1 g/dL (32-36); Mean Corpuscular Volume 88.9 fL (80-100); Mean Platelet Volume 9.9 fL (7.4-10.4); Platelet Count 283 K/uL (130-400); RDW Coefficient of Variation 14.6 % (11.5-14.5); RDW Standard Deviation 47.7 fL (36.4-46.3); White Blood Count 14.03 K/uL (4.8-10.8)
[2020-03-08 08:25] LABS: BUN Creatinine Ratio 17.8 (10-20); Calcium 8.4 mg/dl (8.5-10.1); Creatinine Clr Calc Pharmacy 55.9 ml/min; Est GFR (African American) 80.6; Est GFR (Non-African American) 69.5; Potassium 3.8 mmol/L (3.5-5.1)
[2020-03-08] MEDS ORDERED: PHYTONADIONE 2.5 MG in SODIUM CHLORIDE 0.9% 50 ML IV ONE (09:00)
--- NOTE | 2020-03-08 16:06 | Discharge Summary ---
Date of Service March 08, 2020 Admission HPI Per Admitting Provider 85 yo M with a h/o TURP for BPH in the past x 2 and a h/o gross hematuria in the past. He is on coumadin for a recurrent DVT and has had trials of being off this but the blood clot in his leg would reoccur. INR is 2.4 today. He reports feeling well yesterday and played a round of golf with friends, when afterwards he noted blood in his urine. This was painless and he continued to drink water in an effort to stay hydrated and flush this through. At some point he developed acute urinary retention which prompted him to present to the ER. He denies any other symptoms including no chest pain, SOB, n/v, lightheadedness, etc. Urology was contacted and a flores was placed which was notably difficult to insert. CBI was started in the ER and he was recommended for admission. The urine turned clear and he was hemodynamically stable. No vitamin K was given and coumadin was held. He was stating he was hungry and was admitted to the hospitalist service and given a diet with Urology to see him in the morning. Admission Exam Per Admitting Provider CONSTITUTIONAL: WNWD, vitals as above, generally well-appearing EYES: pupils are equal and round bilaterally, normal conjunctivae, no scleral icterus ENT: external ear and nose normal, oropharynx clear, MMM RESPIRATORY: clear to auscultation bilaterally, no crackles, rales or wheezes, normal respiratory effort CARDIOVASCULAR: regular rate and rhythm, S1 and 2 heard without murmurs, gallops or rubs, no JVD, no peripheral edema, nondistended, no guarding MUSCULOSKELETAL: strength 5/5 throughout, head is normocephalic and atraumatic, neck supple, normal palpation of chest wall without tenderness SKIN: warm and dry NEUROLOGIC: No facial palsy, no dysarthria. CN 2-12 grossly intact, normal cognition, normal speech, no tremor, no gross focal deficits. PSYCHIATRIC: alert cooperative and oriented to person, place and time. Principal Diagnosis Gross hematuria Acute urinary retention Discharge Exam CONSTITUTIONAL: WNWD, vitals as above, generally well-appearing EYES: pupils are equal and round bilaterally, normal conjunctivae, no scleral icterus ENT: external ear and nose normal, oropharynx clear, MMM RESPIRATORY: clear to auscultation bilaterally, no crackles, rales or wheezes, normal respiratory effort CARDIOVASCULAR: regular rate and rhythm, S1 and 2 heard without murmurs, gallops or rubs, no JVD, no peripheral edema, nondistended, no guarding MUSCULOSKELETAL: strength 5/5 throughout, head is normocephalic and atraumatic, neck supple, normal palpation of chest wall without tenderness SKIN: warm and dry NEUROLOGIC: No facial palsy, no dysarthria. CN 2-12 grossly intact, normal cognition, normal speech, no tremor, no gross focal deficits. PSYCHIATRIC: alert cooperative and oriented to person, place and time. Discharge Data Allergies Allergy/AdvReac Type Severity Reaction Status Date / Time No Known Allergies Allergy Unverified 03/07/20 14:08 Consultations 03/07/20 17:19 ED Decision to Admit Stat 03/07/20 20:51 Consult Case Management - Discharge Planning Routine Consult Urology Routine Ordered Studies 03/07/20 12:15 CT abd pelvis IV con only Stat CT OF THE ABDOMEN AND PELVIS WITH CONTRAST CLINICAL HISTORY: Hematuria. FINDINGS: Lung bases are unremarkable. The liver, spleen, adrenal glands, right kidney and pancreas are normal. A 1.4 cm lesion within the lower pole of the left kidney measures above water attenuation but this has decreased in size since CT of October 07, 2016. This likely reflects a partially collapsed cyst. There is no biliary or pancreatic ductal dilatation. There is colonic diverticulosis without evidence for acute diverticulitis. There is no lymphadenopathy. Prostate is markedly enlarged, measuring 8.1 cm in transverse dimension. The gland is heterogeneous. There is asymmetric enhancement within the left anterior aspect of the gland. There is a large amount of hyperdense material within the prostate. This favors hemorrhage. Within the left posterior aspect of the bladder, there is an area of increased attenuation. Active extravasation cannot be excluded. There is no hydronephrosis. No renal, ureteral or bladder calculi are present. 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 No upper tract urothelial lesions are identified although sensitivity is diminished on this portal venous phase exam. A small 5 mm sclerotic focus within the left ischial tuberosity is new since prior CT. IMPRESSION: 1. Markedly enlarged heterogeneous prostate. Large amount of hyperdense material within the bladder suggestive of clot. Underlying mass cannot be excluded. Small foci of increased attenuation within the left posterior aspect of the bladder could reflect active extravasation. No hydronephrosis. No urinary calculi. 2. 1.4 cm hypodense left renal lesion which likely reflects a partially collapsed cyst when correlating with prior CT. 3. New indeterminate 5 mm sclerotic lesion within the left ischial tuberosity. Hospital Course (1) Hematuria: Pt presented with gross hematuria and acute urinary retention, feeling better with Flores placement. CBI per Urology started in the ER and continued overnight. He is on warfarin and initial INR was 2.4. He was admitted to the floor and continuous bladder irrigation was running overnight. The following day repeat INR was 2.3 and his urine was still pinkish. He was given 2.5 IV vitamin K and as the time progressed through the afternoon his urine began to clear. His H&H was notably lower at 10/ from 13 the day prior. He will continue to stay off the warfarin and keep the Flores in place for the next few days until follow-up with urology, Dr. Elias Barber. He will stay off the warfarin contingent upon primary care doctor given permission to restart this. At the primary care follow-up it will be important for repeat check of his H&H. He also was found to have a 5 mm sclerotic lesion within the left ischial tuber osity. Further workup may be needed. CT abdomen pelvis also revealed markedly enlarged heterogeneous prostate with a large amount of hyperdense material within the bladder suggestive of clot. An underlying mass could not be excluded. Small foci of increased attenuation within the left posterior aspect of the bladder could reflect active extravasation. There was no urinary calculi are no hydronephrosis noted. At time of discharge she was mentating and ambulating at baseline and tolerating p.o. He was hemodynamically stable and afebrile and oxygenating well on room air. He was sent home in stable condition with close primary care follow-up next week and early follow-up with urology, Dr. Elias Barber, for Flores removal. 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: (6) Abnormal CT scan, pelvis: Total Time Total Time Spent Total Time Spent (In Minutes): 60 Total Time Includes: Examination of the Patient, Discharge Planning, Medication Reconciliation and Communication With Other Providers Discharge Plan Discharge Items Patient Disposition: Home - Self-Care Reason For Visit: GROSS HEMATURIA Discharge Diagnosis: Gross hematuria Acute urinary retention Condition on Discharge: Good Activity: Resume your previous activity Non-emergency contact: Primary Care Provider and Urologist Call non-emergency contact if: you have any medication questions, your symptoms worsen, your pain is not controlled, your pain is worsening, your pain is unusual for you, your pain is concerning for you and you have a fever Follow-up/Referrals: Osmani Valencia, [Primary Care Provider] - Diet: Regular Addtl Attending Provider Instructions: Please take all medications as instructed on discharge list below. Please follow-up with Dr. Barber and [facility] regarding indwelling Flores removal and checking on your hematuria situation. Until that time please stay off of warfarin. Someone from my staff will contact you on Tuesday after the weekend to help set up a primary care appointment with Dr. Valencia. At this time he will guide you on further warfarin dosing and when to restart. You were found to have a 5 mm area of sclerosis in one of your hip bones. Please go over this with Dr. Valencia as it may require further workup to ensure it is benign. If you develop other problems over the weekend please seek immediate medical attention. It was a pleasure taking care of you! Please call if you have any questions or problems. You can reach a [facility] hospitalist on duty at [facility] 24 hours a day by calling [phone]. Take care of yourself. Christianne Mcmullen DO [facility] Pending Studies at Discharge: No Stand-Alone Forms: My [facility] Medications and DC Order Prescriptions: Continued amlodipine [Norvasc] 5 mg tablet 5 mg PO QAM RF: 0 Discontinued warfarin 2 mg tablet 2 mg PO QAM RF: 0 Discharge Orders: Discharge Order (Routine); Ordered 03/08/20 Ordered By: Christianne Ward/Other Patient Handouts: What is Hematuria?, ED Flores Catheter, Care Admission Data Admit Date/Time: 03/07/20 18:49 Attending Provider: Christianne Mcmullen Admit Provider: Christianne Mcmullen Primary Care Provider: Sulman,Osmani A. Other Providers: Jasmyn Sky ; Elias Barber
[2020-03-08] MEDS ORDERED: POLYETHYLENE (MIRALAX) 17 GM PACK PO PRN (17:26)
== END 2020-03-08 18:55 | disposition home or self-care (01) | DRG 696 ==
LOC: ED 11:26 → 2N 18:49

== ENCOUNTER 2023-11-25 15:39 | Inpatient (IN) ==
[2023-11-25 17:01] LABS: Appearance Urine Clear (Clear); Bacteria Urine Automated None Seen (None Seen); Bilirubin Urine Negative (Negative); Blood Urine Negative (Negative); Color Urine Yellow; Glucose Urine UA Negative (Negative); Ketones Urine Negative (Negative); Leukocyte Esterase Urine Negative (Negative); Nitrite Urine Negative (Negative); Protein Urine 1+ (Negative); RBC Urine Automated 0-2 /hpf (0-2); Specific Gravity Urine 1.019 (1.000-1.030); Urobilinogen Urine Negative (Negative); WBC Urine Automated 0-5 /hpf (0-5); pH Urine 5.5 (4.5-7.5)
[2023-11-25 17:08] LABS: Hematocrit (blood only) 33.5 % (42.0-52.0); Hemoglobin 11.4 g/dl (14.0-18.0); Mean Corpuscular Hemoglobin 29.9 pg (25.0-34.0); Mean Corpuscular Volume 87.9 fL (80.0-100.0); Mean Platelet Volume 9.1 fL (9.4-12.4); Platelet Count 307 K/uL (130-400); RDW Coefficient of Variation 17.1 % (11.5-14.5); RDW Standard Deviation 51.1 fL (36.4-46.3); Red Blood Count 3.81 M/uL (4.70-6.10)
[2023-11-25 17:13] LABS: Alanine Aminotransferase 20 U/L (7-52); Albumin Globulin Ratio 0.9 (0.9-2); Albumin Level 3.4 gm/dl (3.4-5.0); Alkaline Phosphatase 99 U/L (34-104); Anion Gap 8 (3-11); Aspartate Aminotransferase 20 U/L (13-39); BUN Creatinine Ratio 39.5 (10-20); Bilirubin,Total 0.3 mg/dl (0.2-1.0); Blood Urea Nitrogen 32 mg/dl (6-23); Calcium 9.2 mg/dl (8.6-10.3); Carbon Dioxide 32 mmol/L (21-32); Chloride 90 mmol/L (98-107); Est GFR (African American) 91.3 ml/min; Est GFR (Non-African American) 78.8 ml/min; Globulin 3.6 gm/dl (2.5-4.0); Glucose 154 mg/dl (70-99(Fasting)); Sodium 130 mmol/L (136-145)
[2023-11-25 17:22] LABS: INR 0.9 (0.9-1.1); Partial Thromboplastin Ratio 0.9; Partial Thromboplastin Time 25 Seconds (21-31); Prothrombin Time 10.2 Seconds (9.0-12.0)
[2023-11-25 17:33] LABS: Basophils # (auto) 0.02 K/uL (0.00-0.20); Basophils % (auto) 0.4 %; Dohle Bodies 1+; Immature Granulocytes # (auto) 0.08 K/uL (0.01-0.20); Immature Granulocytes % (auto) 1.6 %; Lymphocytes # (auto) 0.29 K/uL (1.20-3.40); Lymphocytes % (auto) 5.7 %; Monocytes # (auto) 0.65 K/uL (0.11-0.59); Monocytes % (auto) 12.7 %; Neutrophils # (auto) 4.06 K/uL (1.40-6.50); Neutrophils % (auto) 79.6 %; Polychromasia 1+; Toxic Granulation 1+
--- NOTE | 2023-11-25 19:30 | Emergency Department Note ---
Impression & Plan Acute hyponatremia ADMIT ED Provider Note HPI: History obtained from patient. 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 Patient was seen by his PCP earlier today and referred to the emergency room due to some concerning lab work as well as concern that the patient is having failure to thrive. He has had diminished p.o. intake and increasing weakness. On arrival here to the ED the patient is hemodynamically stable, he is noted to be mildly tachycardic, he is saturating well on room air on arrival. Patient is afebrile on arrival. ROS: - Per HPI Differential Diagnosis: Acute kidney injury/dehydration, malnutrition, critical electrolyte abnormalities to include hyponatremia, hypokalemia, sepsis, amongst other potential pathologies. *Outpatient medications and allergy history reviewed. 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 Lab work shows no leukocytosis, hemoglobin is stable 11.4, platelet count is normal. CMP does not show any critical findings, sodium is mildly reduced at 130, potassium is normal, chloride is slightly low at 90, BUN is mildly elevated at 32, there is no acute kidney injury, TSH is within normal limits. Urinalysis does not show any obvious infection. Upon review of the patient's outpatient PCP visit with Dr. Valencia, chest x-ray performed in the outpatient setting did not show any obvious pneumonia. There was concern the patient might be dehydrated and has been having some failure to thrive and therefore he was referred to the ED. I do feel at this point the patient would benefit from admission, he looks very listless, he was given IV fluids here in the ED but does not appear well for discharge. I discussed the patient's presentation with the on-call [facility] hospitalist, Dr. Dumont, and he will admit the patient for further management. Patient's family is in agreement to this plan the patient was admitted in stable condition. Consultants/Discussions held with other healthcare providers: -Hospitalist, Dr. Dumont Disposition discussion held by myself with: -Patient and family at the bedside Diagnosis: 1. Hyponatremia, acute 2. Elevated BUN, acute 3. History of squamous cell carcinoma of the tongue, currently on chemo and radiation therapy 4. Diminished p.o. intake 5. 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, stage I Encounter for pre-operative examination Cancer related pain Prostatitis Elevated prostate specific antigen (PSA) Dysuria Abnormal CT scan, pelvis (Acute) DVT prophylaxis Paresthesia Enlarged prostate Hematuria (Acute) Urinary retention (Acute) Voiding difficulty (Acute) Pulmonary nodule Prostate cancer (~2020) on oral chemotherapy and monthly hormone injections HTN (hypertension) BPH (benign prostatic hyperplasia) (Chronic 08/07/13) 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 There is notation of indeterminate midthoracic vertebral body anterior wedge compression Chronic rhinitis History of COVID-2020- no hosp; resolved Surgical History (Updated 09/21/23 @ 10:52 by Karlie Campos RN) S/P bronchoscopy with transbronchial biopsies/brushings - 08/30/23 Dr. Farah History of laryngoscopy with biopsy of left base of tongue - 09/15/23 Dr. Marquis Status post epidural steroid injection 05/2023 Hx of colonoscopy S/P TURP History of detached retina repair Hx of cataract surgery x2 Family History (Updated 09/21/23 @ 13:22 by Karlie Campos RN) Brother Colorectal cancer, Onset Age: 50 Father Lung cancer Grandfather (Paternal) Lung cancer Mother Gangrene Sister Breast cancer Brother Leukemia Social History (Updated 09/21/23 @ 13:26 by Karlie Campos RN) Smoking Status: Former smoker Tobacco Type: Cigarettes Age Started Using Tobacco: 19; Age Quit Using Tobacco: 64; packs per day: 1; Second Hand Exposure: No; Do You Dip or Chew Tobacco: No; Hx Alcohol Use: No Hx Substance Use: No Preferred Language: Upper Sorbian Communication Ability: Effective Magnetic Prospecting Supervisor Required: No Beliefs That Will Affect Care: None marital status: Current Living Situation: Significant Other current occupational status: retired 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; 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; 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 How many Children do You have: 1 How many Children do You have Comment: 1 adopted; Feels Safe at Home: Yes Childhood Exposure to Second-Hand Smoke: Yes Assistive Devices: Walker Allergies Allergies Allergy/AdvReac Type Severity Reaction Status Date / Time No Known Allergies Allergy Verified 11/25/23 19:57 Home Meds Home Medications Medication Instructions Recorded Confirmed amlodipine 10 mg tablet (Norvasc) 10 mg feeding tube QAM 08/23/23 11/25/23 apixaban 2.5 mg tablet (Eliquis) 2.5 mg feeding tube BID 08/23/23 11/25/23 fluticasone propionate 50 2 spray intranasal DAILY PRN Nasal 08/23/23 11/25/23 mcg/actuation nasal Congestion spray,suspension (Allergy Relief (fluticasone)) furosemide 20 mg tablet (Lasix) 20 mg feeding tube QAM 08/23/23 11/25/23 polyethylene glycol 3350 17 17 g feeding tube QPM 08/23/23 11/25/23 gram/dose oral powder prednisone 5 mg tablet 5 mg feeding tube BID 08/23/23 11/25/23 sertraline 25 mg tablet (Zoloft) 25 mg feeding tube QAM 08/23/23 11/25/23 tramadol 50 mg tablet 50 mg feeding tube Q6H PRN Pain 10/31/23 11/25/23 Calcium W/Vitamin D Liquid 1 dose feeding tube DAILY 11/20/23 11/25/23 ascorbic acid (vitamin C) 500 mg/5 100 mg QDL 11/20/23 11/25/23 mL oral liquid docusate sodium 50 mg/15 mL oral 100 mg feeding tube BID 11/20/23 11/25/23 syrup melatonin 5 mg tablet 5 mg feeding tube HS 11/20/23 11/25/23 naloxone 4 mg/actuation nasal spray 4 mg intranasal DIRECTED PRN 11/20/23 11/25/23 Opioid Overdose nutritional supplements 250 ea feeding tube QID 11/20/23 11/25/23 ondansetron HCl 8 mg tablet 8 mg feeding tube Q8H PRN 11/20/23 11/25/23 NAUSEA/VOMITING potassium chloride 20 mEq oral 20 meq feeding tube QAM 11/20/23 11/25/23 packet prochlorperazine maleate 10 mg 10 mg feeding tube Q6H PRN 11/20/23 11/25/23 tablet NAUSEA/VOMITING sennosides 8.6 mg tablet (senna) 8.6 mg feeding tube BID PRN 11/20/23 11/25/23 Constipation fentanyl 12 mcg/hr transdermal 12 mcg transdermal .Q72HR 11/25/23 11/25/23 patch fentanyl 25 mcg/hr transdermal 25 mcg transdermal .Q72HR 11/25/23 11/25/23 patch Previous Rx's Medication Instructions Recorded guaifenesin 200 mg/5 mL oral liquid 200 mg (5 mL) PO Q6H #118 mL 11/21/23 Results & Data (ED) Vital Signs Vital Signs - 24 hr 11/25/23 15:44 11/25/23 19:40 11/25/23 19:54 Temperature 36.9 C Temperature Source Temporal Artery Scan Pulse Rate 107 H 114 H 114 H Pulse Rate [Finger] Pulse Rate from SpO2 Sensor 115 H Respiratory Rate 19 33 H Respiratory Effort / Characteristics Non-Labored Spontaneous Respiratory Depth Normal Blood Pressure 144/76 H Blood Pressure Mean 98 Pulse Oximetry 93 89 L Oxygen Delivery Method Room Air Oxygen Flow Rate Sepsis Recent Fever Within 48 Hours No Sepsis New/Unexplained Change in Mental Status N/A Sepsis Action Taken by Nursing No Action Required 11/25/23 20:06 11/25/23 20:33 11/25/23 21:00 Temperature Temperature Source Pulse Rate 104 H 112 H 111 H Pulse Rate [Finger] Pulse Rate from SpO2 Sensor 103 H 111 H 111 H Respiratory Rate 26 H 36 H 27 H Respiratory Effort / Characteristics Respiratory Depth Blood Pressure Blood Pressure Mean Pulse Oximetry 94 92 93 Oxygen Delivery Method Oxygen Flow Rate Sepsis Recent Fever Within 48 Hours Sepsis New/Unexplained Change in Mental Status Sepsis Action Taken by Nursing 11/25/23 21:27 11/25/23 21:30 11/25/23 21:39 Temperature Temperature Source Pulse Rate 112 H 111 H Pulse Rate [Finger] Pulse Rate from SpO2 Sensor 110 H 112 H Respiratory Rate 27 H 27 H Respiratory Effort / Characteristics Respiratory Depth Blood Pressure 142/81 H Blood Pressure Mean 103 Pulse Oximetry 93 93 Oxygen Delivery Method Oxygen Flow Rate Sepsis Recent Fever Within 48 Hours Sepsis New/Unexplained Change in Mental Status Sepsis Action Taken by Nursing 11/25/23 22:06 11/25/23 22:51 11/25/23 23:44 Temperature Temperature Source Pulse Rate 112 H 112 H 115 H Pulse Rate [Finger] Pulse Rate from SpO2 Sensor 111 H 105 H Respiratory Rate 29 H 25 H Respiratory Effort / Characteristics Respiratory Depth Blood Pressure Blood Pressure Mean Pulse Oximetry 93 94 Oxygen Delivery Method Oxygen Flow Rate Sepsis Recent Fever Within 48 Hours Sepsis New/Unexplained Change in Mental Status Sepsis Action Taken by Nursing 11/25/23 23:45 Temperature Temperature Source Pulse Rate Pulse Rate [Finger] 113 H Pulse Rate from SpO2 Sensor Respiratory Rate 18 Respiratory Effort / Characteristics Non-Labored Spontaneous Respiratory Depth Blood Pressure Blood Pressure Mean Pulse Oximetry 94 Oxygen Delivery Method Nasal Cannula Oxygen Flow Rate 3 Sepsis Recent Fever Within 48 Hours Sepsis New/Unexplained Change in Mental Status Sepsis Action Taken by Nursing Laboratory Data 11/25/23 16:34 11/25/23 21:48 Lab Results 11/25/23 11/25/23 11/25/23 Range/Units 16:34 16:42 21:48 WBC 5.10 (4.8-10.8) K/ul RBC 3.81 L (4.70-6.10) M/uL Hgb 11.4 L (14.0-18.0) g/dl Hct 33.5 L (42.0-52.0) % MCV 87.9 (80.0-100.0) fL MCH 29.9 (25.0-34.0) pg MCHC 34.0 (32.0-36.0) g/dL RDW Std Deviation 51.1 H (36.4-46.3) fL RDW Coeff of Dre 17.1 H (11.5-14.5) % Plt Count 307 (130-400) K/uL MPV 9.1 L (9.4-12.4) fL Immature Gran % (Auto) 1.6 % Neut % (Auto) 79.6 % Lymph % (Auto) 5.7 % Finney % (Auto) 12.7 % Eos % (Auto) 0.0 % Baso % (Auto) 0.4 % Neut # (Auto) 4.06 (1.40-6.50) K/uL Lymph # (Auto) 0.29 L (1.20-3.40) K/uL Finney # (Auto) 0.65 H (0.11-0.59) K/uL Eos # (Auto) 0.00 (0.00-0.50) K/uL Baso # (Auto) 0.02 (0.00-0.20) K/uL Immature Gran # (Auto) 0.08 (0.01-0.20) K/uL Toxic Granulation 1+ Dohle Bodies 1+ Polychromasia 1+ PT 10.2 (9.0-12.0) Seconds INR 0.9 (0.9-1.1) APTT 25 (21-31) Seconds PTT Ratio 0.9 Sodium 130 L 132 L (136-145) mmol/L Potassium 4.0 (3.5-5.1) mmol/L Chloride 90 L (98-107) mmol/L Carbon Dioxide 32 (21-32) mmol/L Anion Gap 8 (3-11) BUN 32 H (6-23) mg/dl Creatinine 0.81 (0.6-1.4) mg/dl Est Cr Clr Drug Dosing Not Reportable Est GFR ( Amer) 91.3 ml/min Est GFR (Non-Af Amer) 78.8 ml/min BUN/Creatinine Ratio 39.5 H (10-20) Glucose 154 H (70-99(Fasting)) mg/dl Osmolality 280 (280-300) mOsm/kg Calcium 9.2 (8.6-10.3) mg/dl Magnesium 1.4 L (1.7-2.4) mg/dl Total Bilirubin 0.3 (0.2-1.0) mg/dl AST 20 (13-39) U/L ALT 20 (7-52) U/L Alkaline Phosphatase 99 (34-104) U/L Total Protein 7.0 (6.0-8.3) gm/dl Albumin 3.4 (3.4-5.0) gm/dl Globulin 3.6 (2.5-4.0) gm/dl Albumin/Globulin Ratio 0.9 (0.9-2) TSH 2.140 (0.300-4.500) uIu/ml Urine Color Yellow Urine Appearance Clear (Clear) Urine pH 5.5 (4.5-7.5) Ur Specific [place] 1.019 (1.000-1.030) Urine Protein 1+ H (Negative) Urine Glucose (UA) Negative (Negative) Urine Ketones Negative (Negative) Urine Blood Negative (Negative) Urine Nitrite Negative (Negative) Urine Bilirubin Negative (Negative) Urine Urobilinogen Negative (Negative) Ur Leukocyte Esterase Negative (Negative) Urine WBC (Auto) 0-5 (0-5) /hpf Urine RBC (Auto) 0-2 (0-2) /hpf U Hyaline Cast (Auto) 3-5 H (0-2) /lpf U Epithel Cells (Auto) 3-5 H (0-2) /hpf Urine Bacteria (Auto) None Seen (None Seen) Administered Medications Magnesium Sulfate/Dextrose (Magnesium Sulfate / D5w) 1 gm in 100 mls @ 50 mls/hr IV Q2H DEON Stop: 11/26/23 05:14 Last Infusion: 11/26/23 00:26 Dose: 0 mls/hr Documented By: Admin: 11/26/23 00:06 Dose: 50 mls/hr Documented By: APRYL Discontinued Medications Sodium Chloride (Nss) 1,000 mls @ 999 mls/hr IV .Q1H1M ONE Stop: 11/25/23 20:28 Last Infusion: 11/25/23 21:06 Dose: Infused Documented By: Admin: 11/25/23 19:42 Dose: 999 mls/hr Documented By: HERIBERTO Ampicillin Sodium/Sulbactam Sodium 3,000 mg/ Sodium Chloride 100 mls @ 200 mls/hr IV NOW STA Stop: 11/25/23 23:41 Last Admin: 11/26/23 00:05 Dose: 200 mls/hr Documented By: APRYL Ipratropium Wheelwright (Ipratropium Wheelwright Neb Soln 0.02% 0.5mg/2.5ml Vial) 0.5 mg INH NOW STA Stop: 11/25/23 23:14 Last Admin: 11/25/23 23:42 Dose: 0.5 mg Documented By: MAG Levalbuterol HCl (Levalbuterol 1.25 Mg/3 Ml Neb) 1.25 mg NEB NOW STA Stop: 11/25/23 23:14 Last Admin: 11/25/23 23:42 Dose: 1.25 mg Documented By: MAG Discharge Plan Visit Data Chief Complaint: Abnormal Labs/Diagnostic Testing Stated Complaint: ABN LABS, DOC REF, NEEDS FLUIDS ED Provider: Hugo Cardoso Discharge Problem: Acute hyponatremia Forms Stand Alone Forms: [facility] Prescriptions Prescriptions: No Action tramadol 50 mg Tablet 50 mg feeding tube Q6H PRN (Reason: Pain) polyethylene glycol 3350 17 gram/dose powder 17 g feeding tube QPM fluticasone propionate [Allergy Relief (fluticasone)] 50 mcg/actuation spray,suspension 2 spray intranasal DAILY PRN (Reason: Nasal Congestion) Rx Instructions: administer into each nostril Eliquis 2.5 mg tablet 2.5 mg feeding tube BID furosemide [Lasix] 20 mg tablet 20 mg feeding tube QAM sertraline [Zoloft] 25 mg tablet 25 mg feeding tube QAM amlodipine [Norvasc] 10 mg tablet 10 mg feeding tube QAM prednisone 5 mg tablet 5 mg feeding tube BID Rx Instructions: TAKES QAM AND 1500 sennosides [senna] 8.6 mg Tablet 8.6 mg feeding tube BID PRN (Reason: Constipation) nutritional supplements Liquid 250 ea feeding tube QID ondansetron HCl 8 mg tablet 8 mg feeding tube Q8H PRN (Reason: NAUSEA/VOMITING) docusate sodium 50 mg/15 mL Syrup 100 mg feeding tube BID prochlorperazine maleate 10 mg tablet 10 mg feeding tube Q6H PRN (Reason: NAUSEA/VOMITING) potassium chloride 20 mEq packet 20 meq feeding tube QAM melatonin 5 mg Tablet 5 mg feeding tube HS naloxone 4 mg/actuation Joshua,Non-Aerosol 4 mg INTRANASAL DIRECTED PRN (Reason: Opioid Overdose) ascorbic acid (vitamin C) 500 mg/5 mL Liquid 100 mg QDL Rx Instructions: VIA FEEDING TUBE Calcium W/Vitamin D Liquid 1 dose feeding tube DAILY guaifenesin 200 mg/5 mL liquid 200 mg PO Q6H Qty: 118 0RF fentanyl 25 mcg/hr patch 72 hour 25 mcg transdermal .Q72HR Rx Instructions: TOTAL DOSE 37 MCG--WITH 12 MCG PATCH fentanyl 12 mcg/hr patch 72 hour 12 mcg transdermal .Q72HR Rx Instructions: TOTAL DOSE 37 MCG--WITH 25 MCG PATCH Referrals Referrals: Osmani Valencia, [Primary Care Provider] -
[2023-11-25] MEDS: SODIUM CHLORIDE 0.9% 1,000 ML IV ONE (19:42)
[2023-11-25] MEDS ORDERED: NUTREN LIQD 2.0 1,000 ML BAG GT SCH (20:00)
[2023-11-25 22:36] LABS: Magnesium 1.4 mg/dl (1.7-2.4)
[2023-11-25 22:53] LABS: Thyroid Stimulating Hormone 2.14 uIu/ml (0.300-4.500)
--- NOTE | 2023-11-25 23:12 | History & Physical Report ---
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 hypertension, slight elevated secondary discomfort Recurrent DVT on Eliquis NSCLC ongoing radiation oropharyngeal cancer ongoing chemoradiation status post PEG tube placement prostate cancer currently on Lupron and steroid Rx metastatic bone disease on fentanyl patch, chronic anemia, hemoglobin at baseline Hypomagnesemia Steroid-induced hyperglycemia rule out DM past tobacco abuse Medical telemetry Supplemental O2 Baseline VBG Unasyn, nebs stat 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 Eliquis Full code Patient requesting updates providers. Ms. Cindy Carpenter, contact #[phone]. Total critical care time was 45 minutes. Text document was generated using [employer] voice recognition software. It may contain grammatical or spelling errors. Kindly contact undersigned for clarification of any documentation item in question. History of Present Illness Chief Complaint: Abnormal blood work Primary Care Provider: Osmani Valencia DO History obtained from patient, family, and records. History somewhat limited from patient secondary to hearing impairment. Medical history significant for hypertension, history of DVT on Eliquis, NSCLC ongoing radiation, oropharyngeal cancer ongoing chemoradiation status post PEG tube placement, metastatic bone disease on fentanyl patch, prostate cancer currently on Lupron and steroid Rx, chronic hyponatremia, chronic anemia (baseline hemoglobin 11-12), past tobacco abuse. Patient admitted for 1 day last 11/20 for confusion attributed to entero- /rhinovirus infection. Patient discharged home as per family request. Family declined PT OT eval. Junky cough symptoms at time of discharge as per patient. No chest pain, usual SOB with exertion as per patient. Occasional gagging with secretions. Patient seen on follow-up at PCP's office today. PCP concerned about patient being weak and volume depleted. Outpatient serum sodium noted to be 129. No pneumonia on outpatient CXR. Patient directed to ER for evaluation. Lowest O2 sats of 80s documented at the ER. 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 Allergies Allergy/AdvReac Type Severity Reaction Status Date / Time No Known Allergies Allergy Verified 11/25/23 19:57 Home Medications Medication Instructions Recorded Confirmed Type amlodipine 10 mg tablet (Norvasc) 10 mg feeding tube QAM 08/23/23 11/25/23 History apixaban 2.5 mg tablet (Eliquis) 2.5 mg feeding tube BID 08/23/23 11/25/23 History fluticasone propionate 50 2 spray intranasal DAILY PRN Nasal 08/23/23 11/25/23 History mcg/actuation nasal Congestion spray,suspension (Allergy Relief (fluticasone)) furosemide 20 mg tablet (Lasix) 20 mg feeding tube QAM 08/23/23 11/25/23 History polyethylene glycol 3350 17 17 g feeding tube QPM 08/23/23 11/25/23 History gram/dose oral powder prednisone 5 mg tablet 5 mg feeding tube BID 08/23/23 11/25/23 History sertraline 25 mg tablet (Zoloft) 25 mg feeding tube QAM 08/23/23 11/25/23 History tramadol 50 mg tablet 50 mg feeding tube Q6H PRN Pain 10/31/23 11/25/23 History Calcium W/Vitamin D Liquid 1 dose feeding tube DAILY 11/20/23 11/25/23 History ascorbic acid (vitamin C) 500 mg/5 100 mg QDL 11/20/23 11/25/23 History mL oral liquid docusate sodium 50 mg/15 mL oral 100 mg feeding tube BID 11/20/23 11/25/23 History syrup melatonin 5 mg tablet 5 mg feeding tube HS 11/20/23 11/25/23 History naloxone 4 mg/actuation nasal spray 4 mg intranasal DIRECTED PRN 11/20/23 11/25/23 History Opioid Overdose nutritional supplements 250 ea feeding tube QID 11/20/23 11/25/23 History ondansetron HCl 8 mg tablet 8 mg feeding tube Q8H PRN 11/20/23 11/25/23 History NAUSEA/VOMITING potassium chloride 20 mEq oral 20 meq feeding tube QAM 11/20/23 11/25/23 History packet prochlorperazine maleate 10 mg 10 mg feeding tube Q6H PRN 11/20/23 11/25/23 History tablet NAUSEA/VOMITING sennosides 8.6 mg tablet (senna) 8.6 mg feeding tube BID PRN 11/20/23 11/25/23 History Constipation guaifenesin 200 mg/5 mL oral liquid 200 mg (5 mL) PO Q6H #118 mL 11/21/23 11/25/23 Rx fentanyl 12 mcg/hr transdermal 12 mcg transdermal .Q72HR 11/25/23 11/25/23 History patch fentanyl 25 mcg/hr transdermal 25 mcg transdermal .Q72HR 11/25/23 11/25/23 History patch Past Med/Surg History Problem List (Updated 11/26/23 @ 10:02 by Steve Dumont MD) Acute hypoxemic respiratory failure Acute hyponatremia (Acute) Hypomagnesemia (Acute) Shortness of breath (Acute) Generalized weakness (Acute) Acute confusion (Acute) 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, stage I Encounter for pre-operative examination Cancer related pain Prostatitis Elevated prostate specific antigen (PSA) Dysuria Abnormal CT scan, pelvis (Acute) DVT prophylaxis Paresthesia Enlarged prostate Hematuria (Acute) Urinary retention (Acute) Voiding difficulty (Acute) Pulmonary nodule Prostate cancer (~2020) on oral chemotherapy and monthly hormone injections HTN (hypertension) BPH (benign prostatic hyperplasia) (Chronic 08/07/13) [facility] current use of anticoagulant (Acute) Recurrent deep vein thrombosis (DVT) of left lower extremity ~s --reason for Eliquis Medical History (Updated 11/26/23 @ 10:02 by Steve Dumont MD) Chronic lumbar pain Rib fracture 07/2023- unsure how rib fx occurred per pt; ER documentation indicates suspicion for potential early met or nondisplaced fx, no documentation of rib fracture on imaging reports or pulm notation. There is notation of indeterminate midthoracic vertebral body anterior wedge compression Chronic rhinitis History of COVID-2020- no hosp; resolved Surgical History (Updated 09/21/23 @ 10:52 by Karlie Campos RN) S/P bronchoscopy with transbronchial biopsies/brushings - 08/30/23 Dr. Farah History of laryngoscopy with biopsy of left base of tongue - 09/15/23 Dr. Marquis Status post epidural steroid injection 05/2023 Hx of colonoscopy S/P TURP History of detached retina repair Hx of cataract surgery x2 Family History (Updated 09/21/23 @ 13:22 by Karlie Campos RN) Brother Colorectal cancer, Onset Age: 50 Father Lung cancer Grandfather (Paternal) Lung cancer Mother Gangrene Sister Breast cancer Brother Leukemia Social History (Updated 09/21/23 @ 13:26 by Karlie Campos RN) Smoking Status: Former smoker Tobacco Type: Cigarettes Age Started Using Tobacco: 19; Age Quit Using Tobacco: 64; packs per day: 1; Second Hand Exposure: No; Do You Dip or Chew Tobacco: No; Hx Alcohol Use: No Hx Substance Use: No Preferred Language: Pashto Communication Ability: Effective Wardrobe Coordinator Required: No Beliefs That Will Affect Care: None marital status: Current Living Situation: Significant Other current occupational status: retired 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; [employer]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; 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 How many Children do You have: 1 How many Children do You have Comment: 1 adopted; Other Information That Helps Us Care for You: No Feels Safe at Home: Yes Safety Concerns: Feels Safe At This Time Childhood Exposure to Second-Hand Smoke: Yes Assistive Devices: Walker Review of Systems Review of Systems: As per HPI, all other systems reviewed and negative Physical Exam Physical Exam: GENERAL: Comfortable, pleasant, episodic tachypnea during speech, slightly hard of hearing, SKIN: Pallor, warm HEENT: Partial alopecia, palpebral conjunctivae, no ptosis, dry buccal mucosa, nasal cannula in place NECK : Supple, neck erythema, minimal tenderness CHEST : Decreased breath sounds, scattered expiratory wheezes, no tenderness HEART : Tachycardic, no obvious murmurs ABDOMEN: Some distention, PEG tube in place EXTREMITIES : Minimal LE swelling, no LE slightly hard of hearing, tenderness, no other conspicuous deformities noted NEUROLOGIC : Coherent, no facial asymmetry, slightly hard of hearing Results & Data Results & Data Vital Signs (Past 12 Hours) Vital Signs Temp Pulse Resp BP Pulse Ox O2 Del Method 11/25/23 22:51 112 H 25 H 94 11/25/23 22:06 112 H 29 H 93 11/25/23 21:39 111 H 27 H 93 11/25/23 21:30 142/81 H 11/25/23 21:27 112 H 27 H 93 11/25/23 21:00 111 H 27 H 93 11/25/23 20:33 112 H 36 H 92 11/25/23 20:06 104 H 26 H 94 11/25/23 19:54 114 H 33 H 89 L 11/25/23 19:40 114 H 11/25/23 15:44 36.9 C 107 H 19 144/76 H 93 Room Air Laboratory Results Laboratory Results WBC 5.10 K/ul (4.8-10.8) 11/25/23 16:34 RBC 3.81 M/uL (4.70-6.10) L 11/25/23 16:34 Hgb 11.4 g/dl (14.0-18.0) L 11/25/23 16:34 Hct 33.5 % (42.0-52.0) L 11/25/23 16:34 MCV 87.9 fL (80.0-100.0) 11/25/23 16:34 MCH 29.9 pg (25.0-34.0) 11/25/23 16:34 MCHC 34.0 g/dL (32.0-36.0) 11/25/23 16:34 RDW Std Deviation 51.1 fL (36.4-46.3) H 11/25/23 16:34 RDW Coeff of Dre 17.1 % (11.5-14.5) H 11/25/23 16:34 Plt Count 307 K/uL (130-400) 11/25/23 16:34 MPV 9.1 fL (9.4-12.4) L 11/25/23 16:34 Immature Gran % (Auto) 1.6 % 11/25/23 16:34 Neut % (Auto) 79.6 % 11/25/23 16:34 Lymph % (Auto) 5.7 % 11/25/23 16:34 [place] % (Auto) 12.7 % 11/25/23 16:34 Eos % (Auto) 0.0 % 11/25/23 16:34 Baso % (Auto) 0.4 % 11/25/23 16:34 Neut # (Auto) 4.06 K/uL (1.40-6.50) 11/25/23 16:34 Lymph # (Auto) 0.29 K/uL (1.20-3.40) L 11/25/23 16:34 [place] # (Auto) 0.65 K/uL (0.11-0.59) H 11/25/23 16:34 Eos # (Auto) 0.00 K/uL (0.00-0.50) 11/25/23 16:34 Baso # (Auto) 0.02 K/uL (0.00-0.20) 11/25/23 16:34 Immature Gran # (Auto) 0.08 K/uL (0.01-0.20) 11/25/23 16:34 Toxic Granulation 1+ 11/25/23 16:34 Dohle Bodies 1+ 11/25/23 16:34 Polychromasia 1+ 11/25/23 16:34 PT 10.2 Seconds (9.0-12.0) 11/25/23 16:34 INR 0.9 (0.9-1.1) 11/25/23 16:34 APTT 25 Seconds (21-31) 11/25/23 16:34 PTT Ratio 0.9 11/25/23 16:34 Sodium 132 mmol/L (136-145) L 11/25/23 21:48 Potassium 4.0 mmol/L (3.5-5.1) 11/25/23 16:34 Chloride 90 mmol/L (98-107) L 11/25/23 16:34 Carbon Dioxide 32 mmol/L (21-32) 11/25/23 16:34 Anion Gap 8 (3-11) 11/25/23 16:34 BUN 32 mg/dl (6-23) H 11/25/23 16:34 Creatinine 0.81 mg/dl (0.6-1.4) 11/25/23 16:34 Est Cr Clr Drug Dosing Not Reportable 11/25/23 16:34 Est GFR ( Amer) 91.3 ml/min 11/25/23 16:34 Est GFR (Non-Af Amer) 78.8 ml/min 11/25/23 16:34 BUN/Creatinine Ratio 39.5 (10-20) H 11/25/23 16:34 Glucose 154 mg/dl (70-99(Fasting)) H 11/25/23 16:34 Osmolality 280 mOsm/kg (280-300) 11/25/23 16:34 Calcium 9.2 mg/dl (8.6-10.3) 11/25/23 16:34 Magnesium 1.4 mg/dl (1.7-2.4) L 11/25/23 21:48 Total Bilirubin 0.3 mg/dl (0.2-1.0) 11/25/23 16:34 AST 20 U/L (13-39) 11/25/23 16:34 ALT 20 U/L (7-52) 11/25/23 16:34 Alkaline Phosphatase 99 U/L (34-104) 11/25/23 16:34 Total Protein 7.0 gm/dl (6.0-8.3) 11/25/23 16:34 Albumin 3.4 gm/dl (3.4-5.0) 11/25/23 16:34 Globulin 3.6 gm/dl (2.5-4.0) 11/25/23 16:34 Albumin/Globulin Ratio 0.9 (0.9-2) 11/25/23 16:34 TSH 2.140 uIu/ml (0.300-4.500) 11/25/23 21:48 Urine Color Yellow 11/25/23 16:42 Urine Appearance Clear (Clear) 11/25/23 16:42 Urine pH 5.5 (4.5-7.5) 11/25/23 16:42 Ur Specific [place] 1.019 (1.000-1.030) 11/25/23 16:42 Urine Protein 1+ (Negative) H 11/25/23 16:42 Urine Glucose (UA) Negative (Negative) 11/25/23 16:42 Urine Ketones Negative (Negative) 11/25/23 16:42 Urine Blood Negative (Negative) 11/25/23 16:42 Urine Nitrite Negative (Negative) 11/25/23 16:42 Urine Bilirubin Negative (Negative) 11/25/23 16:42 Urine Urobilinogen Negative (Negative) 11/25/23 16:42 Ur Leukocyte Esterase Negative (Negative) 11/25/23 16:42 Urine WBC (Auto) 0-5 /hpf (0-5) 11/25/23 16:42 Urine RBC (Auto) 0-2 /hpf (0-2) 11/25/23 16:42 U Hyaline Cast (Auto) 3-5 /lpf (0-2) H 11/25/23 16:42 U Epithel Cells (Auto) 3-5 /hpf (0-2) H 11/25/23 16:42 Urine Bacteria (Auto) None Seen (None Seen) 11/25/23 16:42 Diagnostic Findings Chest x-ray as per my interpretation atelectasis EKG as per my interpretation :Rate 110, sinus tachycardia, normal axis, RBBB, no ischemia
[2023-11-25] MEDS ORDERED: PROMETHAZINE HCL 6.25 MG in SODIUM CHLORIDE 0.9% 50 ML IV PRN (23:18)
[2023-11-25] MEDS: IPRATROPIUM BROMIDE NEB SOLN 0.02% 0.5MG/2.5ML VIAL INH STA (23:42)
[2023-11-25] MEDS: LEVALBUTEROL 1.25 MG/3 ML NEB NEB STA (23:42)
[2023-11-26] MEDS: AMPICILLIN/SULBACTAM SOD 3,000 MG in SODIUM CHLOR 0.9% MINI-B 100 ML IV STA (00:05)
[2023-11-26] MEDS: MAGNESIUM SULFATE / D5W 1 GM/100 ML BAG IV SCH (00:06)
[2023-11-26] MEDS ORDERED: FLUTICASONE PROPIONATE NA SPR 16 GM BTL PRN (00:52)
[2023-11-26] MEDS ORDERED: NALOXONE NASAL SPRAY 4 MG ER HOMEPACK PRN (00:52)
[2023-11-26] MEDS ORDERED: SENNOSIDES 8.8 MG/5 ML UDC PEG PRN (01:35)
[2023-11-26] MEDS ORDERED: MELATONIN 3 MG TAB PO PRN (01:39)
[2023-11-26] MEDS ORDERED: fentaNYL 12 MCG/HR TDSY TD ONE (01:45)
[2023-11-26] MEDS ORDERED: fentaNYL 25 MCG/HR TDSY TD ONE (01:45)
[2023-11-26] MEDS: APIXABAN 2.5 MG TAB PO SCH (02:28)
[2023-11-26] MEDS: fentaNYL 25 MCG/HR TDSY TD ONE (02:30)
[2023-11-26] MEDS: fentaNYL 12 MCG/HR TDSY TD ONE (02:30)
[2023-11-26] MEDS: methylPREDNISolone 20 MG in SYRINGE 0 ML IV ONE (05:07)
[2023-11-26] MEDS: AMPICILLIN/SULBACTAM SOD 3,000 MG in SODIUM CHLOR 0.9% MINI-B 100 ML IV SCH (05:27)
[2023-11-26] MEDS: METOPROLOL TARTRATE 1 MG/ML VIAL IV STA (06:36)
[2023-11-26 06:39] LABS: Base Excess VBG 6.5 mEq/L; HCO3 VBG 33 mmol/L; Oxygen Saturation VBG < 60.0 %; PCO2 VBG 53 mmHg (38-50); PO2 VBG 24 mmHg
[2023-11-26 06:54] LABS: Hematocrit (blood only) 30.5 % (42.0-52.0); Hemoglobin 10.1 g/dl (14.0-18.0); Mean Corpuscular Hemoglobin 29.4 pg (25.0-34.0); Mean Corpuscular Hgb Conc 33.1 g/dL (32.0-36.0); Mean Corpuscular Volume 88.9 fL (80.0-100.0); Mean Platelet Volume 8.9 fL (9.4-12.4); Platelet Count 264 K/uL (130-400); RDW Coefficient of Variation 17.3 % (11.5-14.5); RDW Standard Deviation 53.3 fL (36.4-46.3); Red Blood Count 3.43 M/uL (4.70-6.10); White Blood Count 4.18 K/ul (4.8-10.8)
[2023-11-26] MEDS: LEVALBUTEROL 1.25 MG/3 ML NEB NEB SCH (07:09)
[2023-11-26] MEDS: IPRATROPIUM BROMIDE NEB SOLN 0.02% 0.5MG/2.5ML VIAL INH SCH (07:09)
[2023-11-26 07:32] LABS: Basophils # (auto) 0.02 K/uL (0.00-0.20); Basophils % (auto) 0.5 %; Dohle Bodies 1+; Eosinophils # (auto) 0.01 K/uL (0.00-0.50); Eosinophils % (auto) 0.2 %; Immature Granulocytes # (auto) 0.07 K/uL (0.01-0.20); Immature Granulocytes % (auto) 1.7 %; Lymphocytes # (auto) 0.23 K/uL (1.20-3.40); Lymphocytes % (auto) 5.5 %; Monocytes # (auto) 0.66 K/uL (0.11-0.59); Monocytes % (auto) 15.8 %; Neutrophils # (auto) 3.19 K/uL (1.40-6.50); Neutrophils % (auto) 76.3 %; Toxic Granulation 1+
[2023-11-26] MEDS: CHECK fentaNYL PATCH PLACEMENT SCH ×2 (08:00)
--- NOTE | 2023-11-26 08:12 | XRay Report ---
XR chest 1V portable HISTORY: Worsening cough. COMPARISON: Chest 11/20/2023. FINDINGS: No pneumothorax. No pleural effusions. The cardiac silhouette is normal in size. Calcificat ions within the aortic knob. Bibasilar linear densities favor subsegmental atelectasis. There is a fi ducial marker again noted within the right upper lobe. IMPRESSION: Bibasilar linear densities are nonspecific but favor subsegmental atelectasis. ACT 112: Negative or not required by law. Electronically signed by: Mt Henriquez M.D. 11/26/2023 8:11 AM
[2023-11-26 08:29] LABS: Calcium 8.4 mg/dl (8.6-10.3); Magnesium 2.2 mg/dl (1.7-2.4); Potassium 4.2 mmol/L (3.5-5.1)
[2023-11-26 08:35] LABS: BUN Creatinine Ratio 33.8 (10-20); Creatinine Clr Calc Pharmacy 67.7 ml/min; Est GFR (African American) 94.8 ml/min; Est GFR (Non-African American) 81.8 ml/min
[2023-11-26] MEDS ORDERED: NON-FORMULARY MEDICATION (Nutritional Supplements Liquid) feeding tube SCH (09:00)
[2023-11-26] MEDS: amLODIPine BESYLATE 5 MG TAB PEG SCH (09:00)
[2023-11-26] MEDS: SERTRALINE HCL 50 MG TABLET PEG SCH (11:01)
[2023-11-26] MEDS: predniSONE 5 MG TAB GT SCH (11:01)
[2023-11-26] MEDS: DOCUSATE SODIUM SYRUP 100 MG/10 ML UDC PEG SCH (11:01)
[2023-11-26] MEDS: TUBE FEEDING WATER FLUSH GT SCH ×2 (14:25→15:15)
[2023-11-26] MEDS: NUTREN LIQD 2.0 1,000 ML BAG GT SCH (14:32)
--- NOTE | 2023-11-26 16:24 | Hospitalist Progress Note ---
Date of Service November 26, 2023 Assessment & Plan (1) Acute hypoxemic respiratory failure: Plan: 88-year-old male with PMH of HTN, DVT on Eliquis, NSCLC ongoing radiation, oropharyngeal cancer undergoing chemoradiation status post PEG tube placement, metastatic bone disease on fentanyl patch, prostate cancer currently on Lupron and steroid treatment, chronic hyponatremia, chronic anemia [baseline hemoglobin around 11], past tobacco abuse presented to the ED after PCP office evaluation/concern of patient being weak and volume depleted/outpatient serum sodium noted to be 129. Patient complained of junky cough symptoms since the time of recent discharge associated with the usual shortness of breath with exertion. He is being managed for the following: Possible aspiration pneumonia Recent entero-/rhinovirus URTI Sepsis POA: In the setting of aspiration pneumonia, tachypnea and tachycardia noted at presentation. Hypoxia: Patient tachypneic at presentation, VBG fairly WNL, no respiratory distress noted. Continue with Unasyn 11/25 Continue to feed, aspiration precaution. Speech therapy eval Wean down oxygen as tolerated Droplet precaution, incentive spirometer Nebulization scheduled and as needed Monitor and replete electrolytes. Acute on chronic hyponatremia: recent outpatient sodium noted to be 129. 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 Admitting sodium of 132. today 134. Sodium level daily, increase protein content in the diet. Other chronic medical conditions: Continue with/resume home meds as and when able. hypertension, slight elevated secondary discomfort Recurrent DVT on Eliquis NSCLC ongoing radiation oropharyngeal cancer ongoing chemoradiation status post PEG tube placement prostate cancer currently on Lupron and steroid Rx metastatic bone disease on fentanyl patch, chronic anemia, hemoglobin at baseline Hypomagnesemia Steroid-induced hyperglycemia rule out DM past tobacco abuse PT OT eval, CM to assist with DC planning DVT prophylaxis. Eliquis Full code Patient Ms. Cindy Carpenter, contact #[phone]. Text document was generated using [employer] voice recognition software. It may contain grammatical or spelling errors. Kindly contact undersigned for clarification of any documentation item in question. Admission and Anticipated Discharge Date Admission Date: November 25, 2023 Subjective Patient was seen and examined at bedside. Patient was lying in bed, on 3 L oxygen via nasal cannula, resting comfortably, appears very frail/weak/ill. patient's son at bedside who was also updated on plan of care. Patient reports coughing with productive of sputum, light yellow. Patient reports choking with swallowing. Patient reports pain under control, reports moving bowel yesterday, small bowel movement. Physical Exam Physical Exam: GENERAL: Comfortable, pleasant, slightly hard of hearing,on 3L NC O2 SKIN: Pallor, warm HEENT: Partial alopecia, palpebral conjunctivae, no ptosis, moist buccal mucosa, nasal cannula in place NECK : Supple, neck erythema, minimal tenderness CHEST : Decreased breath sounds, scattered expiratory wheezes, no tenderness HEART : Tachycardic, no obvious murmurs ABDOMEN: Some distention, PEG tube in place EXTREMITIES : Minimal LE swelling, no other conspicuous deformities noted NEUROLOGIC : Coherent, no facial asymmetry, slightly hard of hearing Results & Data Results & Data Vital Signs (Past 12 Hours) Vital Signs Pulse Pulse Resp BP Pulse Ox O2 Del Method O2 Flow Rate 11/26/23 13:35 107 H 18 95 Nasal Cannula 3 11/26/23 10:03 104 H 22 152/84 H 95 11/26/23 09:15 103 H 22 96 11/26/23 09:09 103 H 22 96 11/26/23 08:50 103 H 11/26/23 07:10 99 H 20 95 Nasal Cannula 4 11/26/23 07:03 96 H 19 153/82 H 95 Nasal Cannula 4 11/26/23 07:02 96 H 153/82 H 11/26/23 05:00 103 H 24 161/83 H 96 Nasal Cannula 4 11/26/23 04:30 110 H 20 152/85 H 97 Nasal Cannula 4
--- OUTSIDE RECORDS SUMMARY | 2023-11-26 18:38 | External Medical Summary | Summary of Care ---
Author Name Unknown Organization [facility] Address [address] [place] [address] Phone [phone] Care Team Providers Care Crayon Painter Name Role Phone Osmani Valencia DO Primary Care Provider [phone] Reason for Visit * Reason Comments [facility]: Maintenance Encounter Details Date Type Department Care Team (Late st Contact Info) Description 11/17/2023 4:00 PM EDT Home Visit [facility], [facility] [address] [place] [address] Phyllis Toure, RN [address] [place] [address] Allergies No known active allergiesdocumented as of this encounter (statuses as of 11/25/2023) Medications Medication Sig Dispensed Refills Start Date End Date Status Polyethylene Glycol 3350 17 GM/SCOOP Oral Powder (MiraLax)Indicatio ns:Constipation, unspecified constipation type Take 17 g by mouth daily. Dissolve one heaping tablespoon in 8 ounces of water or juice. 578 g 03/25/2020 Active Calcium/Vitamin D3 Gummies 200-200 MG-UNIT Oral Tablet Chewable (Ca Phosphate-Cholecal ciferol) Take 1 Tablet by mouth daily at noon. Active Vitamin C 100 MG Oral Tablet Chewable Take 1 Tablet by mouth daily at noon. Active Fluticasone Propionate 50 MCG/ACT Nasal Suspension (Flonase)Indicatio ns:Non-seasonal allergic rhinitis due to pollen ADMINISTER 2 SPRAYS INTO EACH NOSTRIL DAILY 16 g 5 11/30/2022 Active Docusate Sodium 100 MG Oral Capsule (Colace) Take 1 Capsule by mouth in the morning and 1 Capsule before bedtime. 06/10/2023 Active Furosemide 20 MG Oral Tablet (Lasix)Indications :HTN, goal below 140/90 Take 1 Tablet by mouth in the morning. 30 Tablet 5 06/16/2023 Active amLODIPine Besylate 10 MG Oral Tablet (Norvasc)Indicatio ns:HTN, goal below 140/90 Take 1 Tablet by mouth in the morning. 15 Tablet 3 07/08/2023 Active predniSONE 5 MG Oral Tablet (Deltasone)Indicat ions:Prostate cancer (HCC) Take 1 Tablet by mouth in the morning and 1 Tablet before bedtime. 60 Tablet 5 08/08/2023 Active Ondansetron HCl 8 MG Oral TabletIndications: Tongue cancer (HCC),Metastasis to head and neck lymph node (HCC) Take 1 Tablet by mouth every 8 hours as needed for Nausea. 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 60 Tablet 2 09/20/2023 Active Apixaban 2.5 MG Oral Tablet (Eliquis) Take 1 Tablet by mouth in the morning and 1 Tablet before bedtime. 60 Tablet 11 09/26/2023 Active Sennosides 8.6 MG Oral Tablet Take 1 Tablet by mouth in the morning and 1 Tablet before bedtime. 09/26/2023 Active Nutren 2.0 Oral Liquid Administer 250 mL 5 times daily, as directed through feeding tube via gravity bag 29348 mL 11 09/27/2023 Active Additional Information Patient taking differently: Administer 250 mL 4 times daily, as directed through feeding tube via gravity bag, Reported on 11/10/2023 Lidocaine 5 % External Patch (Lidoderm)Indicati ons:Metastatic cancer to spine (HCC) Place 1 Patch over 12 hours topically on the skin daily. On back at site of pain 30 Patch 10/04/2023 Active Nutrisource Fiber Oral Powder Administer one to two scoops daily as directed, through feeding tube via gravity bag means. 410 g 11 10/11/2023 Active Additional Information Patient not taking.Reported on 10/18/2023 traMADol HCl 50 MG Oral Tablet (Ultram)Indication s:Metastatic cancer to spine (HCC) Take 1 Tablet by mouth every 8 hours as needed for Severe Pain. 60 Tablet 10/27/2023 Active Sertraline HCl 25 MG Oral Tablet (Zoloft)Indication s:Anxiety Take 1 Tablet by mouth in the morning. 30 Tablet 5 10/28/2023 Active Potassium Chloride 20 MEQ Oral PacketIndications: Tongue cancer (HCC),Metastasis to head and neck lymph node (HCC),Hypokalemia Take 20 mEq by mouth in the morning. 30 Packet 11/09/2023 Active Melatonin 5 MG Oral CapsuleIndications :Primary insomnia Take 1 Capsule by mouth at bedtime. 30 Capsule 11/10/2023 Active fentaNYL 50 MCG/HR Transdermal Patch 72 Hour (Duragesic)Indicat ions:Metastatic cancer to spine (HCC) Place 1 Patch over 72 hours topically on the skin every 3 days for pain 10 Patch 11/02/2023 Discontinue d(Refill) documented as of this encounter (statuses as of 11/25/2023) Active Problems Problem Noted Date Diagnosed Date Compression fracture of body of thoracic vertebr a 10/19/2023 Last Assessment & Plan: Will be referred for possible kyphoplasty Continue fentanyl 50mcg patch for pain control Metastatic cancer to spine 09/26/2023 Last Assessment & Plan: Pain controlled with fentanyl 50mcg patch and tramadol 50mg prn for breakthrough Morphine solution ordered by pcp, but patient would like to avoid for now Controlled substance agreement signed 09/26/2023 Ambulatory dysfunction 09/26/2023 S/P percutaneous endoscopic gastrostomy (PEG) tube placement 09/23/2023 Last Assessment & Plan: Started using for routine feedings Nutren 2.0 tid Encounter for antineoplastic chemotherapy 2023 Tongue cancer 09/21/2023 Overview: CT neck with contrast on 08/31/2023: -large enhancing left base of the tongue mass measuring 4.2 x 3.5 x 4 cm which involves the vallecula and extends across the midline -left cervical lymphadenopathy measuring 1.6 cm x2. squamous cell cancer, HPV positive. 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 06/10/2023 Osteoarthritis of spine with radiculopathy, lumb ar region 08/31/2022 Lumbar degenerative disc disease 08/31/2022 Slow transit constipation 05/24/2022 Prostate cancer 10/22/2020 History of DVT (deep vein thrombosis) 05/26/2017 Urinary retention 07/10/2013 HTN, goal below 140/90 07/06/2010 ADVANCE DIRECTIVE INFORMATION 03/11/2006 Overview: Yes, Patient instructed to provide copy of advance directive for provider to review and to be scanned into Electronic Medical Record 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 0 08/26/2003 Overview: ICD-10 update of inactive term Tobacco use disorder 09/28/2002 Overview: Quit 2002 documented as of this encounter (statuses as of 11/25/2023) Resolved Problems Problem Noted Date Diagnosed Date Resolved Date Lesion of lumbosacral vertebra 08/31/2022 09/26/2023 Prediabetes 04/06/2021 11/05/2021 Overview: Per Prediabetes protocol Chronic kidney disease, stage 3a 12/09/2020 05/24/2022 Overview: Per CKD protocol DVT (deep venous thrombosis) 02/14/2015 06/13/2017 BPH without obstruction/lowe r urinary tract symptoms 07/10/2013 08/23/2022 Dyslipidemia, goal LDL below 160 07/06/2010 12/13/2018 Benign neoplasm of colon 06/23/2009 Overview: hyperplastic/evaluate need for future scopes Syncope and collapse 05/23/2006 017 Actinic keratosis 09/28/2004 06/13/2017 Keratoderma, acquired 09/28/20042016 Elevated prostate specific antigen (PSA) 09/28/2002 12/18/2020 Overview: urologic w/u per Dr. Lua DEEP PHLEBITIS-LEG NEC 08/21/200202/14 Anticoagulation management encounter 08/21/2002 03/25/2020 documented as of this encounter (statuses as of 11/25/2023) Immunizations Name Administration Dates Next Due COVID-19 mRNA, LNP-s, No Pre serve, 2-Dose Series (Kohort) 09/16/2020,08/21/2020 COVID-19, LNP-s, No Preserve , Jama-sucrose, Ages 12+ (Pfizer) 04/17/2021 COVID-19, MRNA-LNP, 23-24, P F, 30 MCG/0.3 mL, 12 YRS AND ABOVE, IM (PFIZER-Comirnaty) 05/03/2023 H1N1 2009 Influenza, IM 09/03/2009 Pneumococcal Conjugate Vacc, 13 Valent (Prevnar) 05/09/2015 Seasonal Influenza Virus Vac cine, Unspecified Formulation 03/09/2014 Seasonal Influenza, PF, 6 M & above, IM , (FluLaval or Fluzone) 03/25/2020,05/16/2018,04/29/2017 Seasonal Influenza, Quadriva lent Hd (Fluzone Hd) 04/11/2023,03/11/2022,05/07/2021 Seasonal Influenza, Quadriva lent, No Preserve, IM 05/05/2016,04/10/2015 04/14/2016 Seasonal Influenza, Split, I IV3, With Preserve, Inj 03/09/2014,03/17/2013,05/04/2012,03/23,05/05/2010,09/03/2009,04/23/2008 ,06/01/2007,05/23/2006 Seasonal Influenza, Trivalen t, Adjuvanted, 65+ yrs 04/23/2019 TDAP (age 10 and older)(Boostrix) 08/15/2012 Varicella Zoster Vaccine (Adult) 08/05/2011 documented as of this encounter Social History Tobacco Use Types Packs/Day Years Used Date Smoking Tobacco: Former Cigarettes 2 20 0 07/28/1982 - 07/28/2002 Passive Smoke Exposure: Past Smokeless Tobacco: Never Alcohol Use Standard Drinks/Week Comments No 0 (1 standard drink = 0.6 oz pur e alcohol) PHQ-2 Answer Date Recorded PHQ Adult Total Score 0 07/27/2023 Hunger Vital Sign Answer Date Recorded Within the past 12 months, y ou worried that your food would run out before you got the money to buy more. Never true 07/27/19 24 Within the past 12 months, t he food you bought just didn't last and you didn't have money to get more. Never true 07/27/2023 Sex and Gender Information Value Date Recorded Sex Assigned at Male 12/13/2018 9:03 AM EDT Gender Identity Male 12/13/2018 9:03 AM EDT Sexual Orientation Straight 12/13/2018 9: 03 AM EDT Job Start Date Occupation Industry Not on file Not on file Not on file documented as of this encounter Last Filed Vital Signs Vital Sign Reading Time Taken Comments Blood Pressure 142/68 11/17/2023 3:20 PM EDT Pulse 96 11/17/2023 3:20 PM EDT Temperature 36.8 C (98.2 F) 11/17/2023 3:20 PM ED T Respiratory Rate 18 11/17/2023 3:20 PM EDT Oxygen Saturation 94% 11/17/2023 3:20 PM EDT Inhaled Oxygen Concentration - - Weight 77.1 kg (170 lb) 11/17/2023 3:20 PM EDT Height - - Body Mass Index 26.23 11/10/2023 11:46 AM EDT documented in this encounter Functional Status Functional Status Response Date of Assess ment Are you deaf or do you have serious difficulty hearing? Yes-hearing aides 09/23/2023 Are you blind or do you have serious difficulty seeing, even when wearing glasses? No 09/23/2023 Do you have serious difficul ty walking or climbing stairs? (5 years old or older) Yes 09/23/2023 Do you have difficulty dress ing or bathing? (5 years old or older) No 09/23/2023 Because of a physical, menta l, or emotional condition, do you have difficulty doing errands alone such as visiting a doctor s office or shopping? (15 years old or older) No 09/23/19 Cognitive Status Response Date of Assessm ent Because of a physical, menta l, or emotional condition, do you have serious difficulty concentrating, remembering, or making decisions? (5 years old or older) No 09/23/2023 documented as of this encounter Progress Notes * Phyllis Toure, RN - 11/17/2023 3:16 PM EDT [facility] Visit Date: 11/17/2023 Time: 3:16 PM Name: Conner Carpenter : 1935 Current Concerns: Pt seen for return RNCM visit Dx: Prostate Cancer, Tongue cancer with mets to head and neck lymph nodes, squamous cell cancer of the right lung, HTN, recurrent DVT, stage 3 CKD, Lumbar disc disease Continues to have radiation treatment 5 days a week - has 7 more treatments to go Now only able to eat pureed type foods such as applesauce and drink liquids He is using peg tube 4x a day for nutren feedings He is not able to swallow pills - now uses liquid form or crushes and puts in peg tube Does have burning pain around throat but states that is controlled with fentanyl patch He denies any acute concerns at this time Getting ready to go out to a meeting now Continues to get nursing services thru [facility] - has completed PT services Physical Exam: BP 142/68 | Pulse 96 | Temp 36.8 C (98.2 F) | Resp 18 | Wt 77.1 kg (170 lb) | SpO2 94% | BMI 26.23 kg/m | BSA 1.92 m Pain 0 Physical Exam Constitutional: General: He is not in acute distress. Cardiovascular: Rate and Rhythm: Normal rate and regular rhythm. Pulses: Normal pulses. Heart sounds: Normal heart sounds. Pulmonary: Effort: Pulmonary effort is normal. Abdominal: General: Bowel sounds are normal. Palpations: Abdomen is soft. Skin: General: Skin is warm and dry. Neurological: Mental Status: He is alert and oriented to person, place, and time. Problems/Symptoms: Review of Systems Constitutional: Positive for fatigue. HENT: Negative. Eyes: Negative. Respiratory: Positive for shortness of breath (GUZMAN - at baseline). Cardiovascular: Positive for leg swelling. Gastrointestinal: Negative. Genitourinary: Negative. Musculoskeletal: Positive for back pain and gait problem. Skin: Negative. Psychiatric/Behavioral: Positive for sleep disturbance. Medication Reconciliation: (See medication list) Does patient take medications as ordered: Yes Patient Well Being: PHQ2/9: No questionnaires available. No change in living situation Denies falls [facility]-10 Completed this Visit: No. Routine visit and No falls since last visit Advanced Care Planning: No documentation, acp on file. Patient's Goals of Care: No back pain Cancer free Go golfing Reinforcement/Education: Educated on home safety: Create a fall proof home Clear floors of clutter, loose wires, throw rugs, and cords. Make sure halls, stairways, and entrances are well lit. Install a nightlight in your bedroom, hallway and bathroom. Install grab bars or handrails in the bathroom and on stairs. Use a non-skid tub/shower mat. Avoid climbing on a chair; instead use a step stool with a high handrail. Keep sidewalks and steps in good repair Keep steps and sidewalks free of snow and ice. Using aids to support and prevent falls If you have poor balance or have fallen in the past, consider additional support such as a cane or walker. Use a cane with good support and that is the proper length for you. Use a walker if a cane doesnt provide enough support. Avoid medications that increase the risk of falling by causing dizziness, change in sensation or slowed reflexes. Certain medicines may cause falls - blood pressure pills, heart medicines, water pills, or sleepingpills. Be sure to understand each medicine that you are taking and any side effects that may occur. Improve your balance and flexibility with muscle strengthening exercises. Ask your health care provider for some exercises that will be right for you. Reinforced safety education and fall prevention. and Reinforced medication regimen. Timing., Dosing., and Purspose. Treatment/Plan: Continue meds a prescribed/reviewed Palliative to be provided thru [facility] for home health SN Currently receiving chemo weekly and radiation 5 days a week for tongue cancer Peg tube for bolus feedings and flushes - now eating only pureed or liquids Use walker at all times Home Interventions Provided: Home Intervention: Other; eval Reinforced current Plan of Care, including self-management and medication regimen Patient's 'Red Flags': Uncontrolled pain Increased weakness Fall or poor balance Patient Needs to Remember: Call [facility] at with any new or worsening health concerns or problems, red flag symptoms. Referrals Needed: Other none Follow Up: Is there cellular connectivity/connectivity in the home? Yes Does the patient have internet in the home? Yes Patient encouraged to call the intake phone number for all urgent but not emergent issues. Is the patient new to [facility] within the last 30 days? No, Assess appropriateness for upcoming telehealth visits. Cancel telehealth visits & schedule home visit with care steam turbine operator(s)as indicated. Provider is in agreement with Plan of Care: Yes Scheduled to follow up with patient in one month. Phyllis Toure RN 11/17/2023 3:16 PM documented in this encounter Plan of Treatment Upcoming Encounters Date Type Department Care Team (Late st Contact Info) Description 11/25/2023 10:40 AM EDT Office Visit Family Practice [address], [place] [address] [place] [phone] Osmani Valencia, DO [address] [facility], [place] [address] 11/28/2023 11:00 AM EDT Laboratory Laboratory [facility] [place] [address] [place] [id number] Peggy Lab [facility] [address] [facility] [place] [address] 11/28/2023 11:30 AM EDT Immunization/Injecti on Hematology/Oncology Treatment, [place] [address] [place] [phone] Nurse, Med [address] [place] [address] 11/30/2023 11:00 AM EDT Scheduled Telephone Family Practice [address] [facility] [address] [place] [phone] College, Nurse [facility] Prac [address] [place] [address] 12/07/2023 11:40 AM EDT Office Visit Family Practice [address] [facility] [address] [place] [phone] Osmani Valencia, [address] [place] [address] 12/09/2023 1:50 PM EDT Nutrition Services Nutrition & Weight Management, [facility] [address] [facility] [place] [address] Zuleika Alonzo RDN [address] [facility] [place] [address] 12/12/2023 3:00 PM EDT Office [facility] [phone] Sendy Franco CRNP [address] [facility] [place] [address] 12/19/2023 9:45 AM EDT Pharmacy Pharmacy Hematology Oncology [facility] [address] [place] [address] [facility] Hem/Onc [address] [place] [address] 01/02/2024 4:00 PM EDT Home Visit [facility], [facility] [address] [place] [address] Phyllis Toure, RN [address] [place] [address] 05/04/2024 11:00 AM EST Nurse Only Ancillary [address], [place] [address] [facility], [place] [address] College, Nurse Annual Wellness Visit [address] [facility] [address] [facility], [place] [address] Health Maintenance Due Date Last Done Comments Zoster Vaccines (1 of 2) 09/30/2011 08/05/2011 DTaP,Tdap,and Td Vaccines (2 - Td or Tdap) 08/15/2022 08/15/2012 COVID-19 Vaccine (5 - 2022- season) 2023 05/03/2023, 04/17/2021, 04/17/2021, Additional history exists Depression Screening 07/27/2024 07/27/2023 Albumin/Creatinine Ratio 02/18/2025 02/18/2022, 11/26 Pneumococcal Vaccine: 65+ Years Completed 05/09/2015, 09/28/2002 Influenza Vaccine (FLU shot) Completed , 03/11/2022, 05/07/2021, Additional history exists GARDASIL-HPV IMMUNIZATION SERIES Aged Out No longer eligible based on patient's age to complete this topic Hepatitis B Aged Out No longer eligi ble based on patient's age to complete this topic MENINGOCOCCAL (MENACTRA/MENVEO) Aged Out No longer eligible based on patient's age to complete this topic documented as of this encounter Medical Devices Not on filedocumented as of this encounter Advance Directives * Full Code (Latest Code Status on File) Date Activated Date Inactivated Comments 09/23/2023 7:00 PM 09/24/2023 4:37 PM This order r eflects the patients wishes and were consensually agreed upon. Question Answer Comments Discussion of Advance Directives occurred with: Patient Care Teams Crayon Painter Relationship Specialty Start Date End Date Osmani Valencia DO [address] [facility] [address] PCP - General Internal Medicine 04/23/21 documented as of this encounter"
--- OUTSIDE RECORDS SUMMARY | 2023-11-26 18:38 | External Medical Summary ---
Author Name Unknown Address Unknown Organization [facility] [place] [address] [place] [address] Laboratory Report Ordering Provider Test Date Status KENNEY MILLER 11/25/2023 12:23:18 Final Observation Date Value Abnormality Reference (Units ) Status BUN 11/25/2023 12:23:18 29 Above high normal 6-20 (mg/dL) Final Creatinine 11/25/2023 12:23:18 0.8 0.6-1.2 (mg/dL) Final Glomerular filtration rate/1.73 sq M.predicted [Volume Rate/Area] in Serum, Plasma or Blood by Creatinine-based formula (CKD-EPI) 11/25/2023 12:23:18 83 >=60 (mL/min) Final eGFR is calculated based on the CKD-EPI 2020 equation Sodium 11/25/2023 12:23:18 129 Below low normal 135 -146 (mmol/L) Final Potassium 11/25/2023 12:23:18 4.1 3.5-5.1 (m mol/L) Final Cl 11/25/2023 12:23:18 89 Below low normal 98- 107 (mmol/L) Final CO2 11/25/2023 12:23:18 30 22-32 (mmo l/L) Final Anion gap 11/25/2023 12:23:18 10 7-15 (mmol /L) Final Glucose 11/25/2023 12:23:18 122 Above high normal 70 -120 (mg/dL) Final Albumin 11/25/2023 12:23:18 3.4 Below low normal 3.8 -5.0 (g/dL) Final AST (Aspartate aminotransferase) 11/25/2023 12:23:18 20 10-50 (U/L) Fin al Alk Phos 11/25/2023 12:23:18 115 35-130 (U/ L) Final Bilirubin, Total 11/25/2023 12:23:18 0.3 <=1 .2 (mg/dL) Final Calcium 11/25/2023 12:23:18 9.0 8.4-10.2 ( mg/dL) Final Protein 11/25/2023 12:23:18 6.0 6.0-8.3 (g /dL) Final ALT (Alanine aminotransferase) 11/25/2023 12:23:18 22 10-50 (U/L) Bar khan Performing Location [facility] [place] [address] [facility] [address]
--- OUTSIDE RECORDS SUMMARY | 2023-11-26 18:38 | External Medical Summary ---
Author Name Unknown Address Unknown Organization [facility] [address] [place] [id number] Laboratory Report Ordering Provider Test Date Status KENNEY MILLER 11/25/2023 12:23:18 Final Observation Date Value Abnormality Reference (Units ) Status WBC, Total 11/25/2023 12:23:18 5.21 4.00-10.8 0 (K/uL) Final RBC 11/25/2023 12:23:18 3.88 4.50-5.25 (M/uL) Final Hemoglobin 11/25/2023 12:23:18 11.8 Below low normal 14 .0-16.8 (g/dL) Final HCT 11/25/2023 12:23:18 35.0 Below low normal 40. 0-48.4 (%) Final MCV 11/25/2023 12:23:18 90.2 82.0-99.5 (fL) Final MCH 11/25/2023 12:23:18 30.4 27.0-34.0 (pg) Final MCHC 11/25/2023 12:23:18 33.7 32.0-36.0 (g/dL) Final RDW 11/25/2023 12:23:18 17.1 11.5-15.5 (%) Final Platelets 11/25/2023 12:23:18 292 140-400 (K /uL) Final MPV 11/25/2023 12:23:18 8.7 6.6-11.1 ( fL) Final Performing Location [facility] [address] [place] [address]
--- OUTSIDE RECORDS SUMMARY | 2023-11-26 18:38 | External Medical Summary | Summary of Care ---
Author Name Unknown Organization [facility] Address [address] [place] [address] Phone [phone] Care Team Providers Care Temporary Receptionist Name Role Phone Paul Valencia DO Primary Care Provider [phone] Reason for Visit * Reason Onset Date Comments Medication Refill 11/23/2023 Encounter Details Date Type Department Care Team (Late st Contact Info) Description 11/23/2023 Refill Family Practice [address], [place] [address] [place] [address] Paul Valencia DO [address] [place] [address] Metastatic cancer to spine (HCC) Allergies No known active allergiesdocumented as of this encounter (statuses as of 11/23/2023) Medications Medication Sig Dispensed Refills Start Date [...] directed through feeding tube via gravity bag 79959 mL 11 09/27/2023 Active Additional Information Patient [...] mouth at bedtime. 30 Capsule 11/10/2023 Active Ascorbic Acid 500 MG Oral Tablet 100 mg (0.2 x 500 mg) Via Peg Tube daily in the morning 30 Tablet 11/21/2023 Active Giltuss EX Maximum Strength 400 MG/10ML Oral Liquid (guaiFENesin) 200 mg (5 mL) orally every 6 hours 118 mL 11/21/2023 Active guaiFENesin ER 600 MG Oral Tablet Extended Release 12 Hour (Humibid LA) Take 600 mg (1 tablet) orally twice a day 30 Tablet 11/21/2023 Active fentaNYL 25 MCG/HR Transdermal Patch 72 Hour (Duragesic)Indicat ions:Metastatic cancer to spine (HCC) Place 1 Patch over 72 hours topically on the skin every 3 days. Apply for pain 10 Patch 11/23/2023 Active fentaNYL 12 MCG/HR Transdermal Patch 72 HourIndications:Me tastatic cancer to spine (HCC) Place 1 Patch over 72 hours topically on the skin every 3 days. For pain control. 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 0 08/26/2003 Overview: ICD-10 update of inactive term Tobacco use disorder 09/28/2002 Overview: Quit 2002 documented as of this encounter (statuses as of 11/23/2023) Resolved Problems Problem Noted Date Diagnosed Date [...] as of this encounter (statuses as of 11/23/2023) Immunizations Name Administration Dates Next Due COVID-19 mRNA, LNP-s, No Pre serve, 2-Dose Series ([employer]) 09/16/2020,08/21/2020 COVID-19, LNP-s, No Preserve , Jama-sucrose, Ages 12+ ([employer]) 04/17/2021 COVID-19, MRNA-LNP, 23-24, P F, 30 [...] on file documented as of this encounter Functional Status Functional Status Response [...] No 09/23/2023 documented as of this encounter Miscellaneous Notes * Telephone Encounter - Kirstin Oviedo OSA - 11/23/2023 4:02 PM EDT Phone visit scheduled. * Telephone Encounter - Isa Hutson LPN - 11/23/2023 3:39 PM EDT Add to nurse schedule for one week. * Telephone Encounter - Paul Valencia DO - 11/23/2023 1:43 PM EDT Call patient in 1 week to see if Hallucinations have improved. * Telephone Encounter - Paul Valencia DO - 11/23/2023 1:43 PM EDTSigned Prescriptions: Disp Refills fentaNYL 25 MCG/HR Transdermal Patch 72 Ho*10 Pat*0 Sig: Place 1 Patch over 72 hours topically on the skin every 3 days. Apply for pain Authorizing Provider: PAUL VALENCIA fentaNYL 12 MCG/HR Transdermal Patch 72 Ho*10 Pat*0 Sig: Place 1 Patch over 72 hours topically on the skin every 3 days. For pain control. Freda ortiz Provider: PAUL VALENCIA * Telephone Encounter - Paul Valencia DO - 11/23/2023 1:41 PM EDT I have reviewed the patients controlled substance dispensing history in the Prescription Drug Monitoring Program in compliance with the [facility] regulations before prescribing a controlled substance. Last Tox Screen Results: No results found. However, due to the size of the patient record, not all encounters were searched.Please check Results Review for a complete set of results. Medication decrease * Telephone Encounter - Isa Hutson LPN - 11/23/2023 12:43 PM EDT Presented to ER on Tuesday PM, was diagnosed with rhinovirus. Also, states he did have hallucinations. Has completed chemotherapy has 3 more radiation treatments. Cough was the big problem that took him to ER. States that the cough has greatly improved. Is due to have a patch change. Anay did replace with the fentanyl 50 mcg. Will follow new instructions. Patient is aware and will comply. Has this dose of patches at home. Does not need at this time Thank you * Telephone Encounter - Paul Valencia DO - 11/23/2023 10:59 AM EDT Decrease Duragesic patch to 37.5 mch . Change every 3 days. (25 mcg patch and 12.5 mcg patches). Check status in 1 week * Telephone Encounter - Isa Hutson LPN - 11/23/2023 8:58 AM EDT Spoke to [facility]--admitted to [facility] patient had hallucinations. States he continues to hear radioin his head. Wondering if lowering dose of duragesic and prn tramadol? Is not using tramadol at all. Will need to call paitent/partner documented in this encounter Plan of Treatment Upcoming Encounters Date Type Department Care Team (Late st Contact Info) Description 11/25/2023 10:40 AM EDT Office Visit Family Practice 65 [facility] 293 [facility] [phone] Paul Valencia, DO 293 [facility] [place] [place] [address] 11/28/2023 11:00 AM EDT Laboratory Laboratory [facility] 200 [facility] [place] [phone] [facility] [place] [address] 11/28/2023 11:30 AM EDT Immunization/Injecti on Hematology/Oncology Treatment, [place] [address] [place] [phone] Nurse, Med 4 200 [facility] [place] [address] 11/30/2023 11:00 AM EDT Scheduled Telephone Family Practice 65 [facility] 293 [facility] [phone] College, Nurse Fam Prac [address] [address] 12/07/2023 11:40 AM EDT Office Visit Family Practice 65 [facility] 293 [facility] [phone] Paul Valencia DO 293 [facility] [place] [address] 12/09/2023 1:50 PM EDT Nutrition Services Nutrition & Weight Management, [facility] [address] [place] [address] Zuleika Alonzo RDN 132 [facility] [place] [address] 12/12/2023 3:00 PM EDT Office Visit Hematology/Oncology [facility] 200 [place] [phone] Sendy Franco CRNP 400 [place] [address] 12/19/2023 9:45 AM EDT Pharmacy Pharmacy Hematology Oncology [facility] [address] [place] [address] Gm, [facility] Hem[facility]Onc [address] [place] [address] 01/02/2024 4:00 PM EDT [facility] 132 [facility] [place] [address] Phyllis Toure RN 132 [facility] [place] [address] 05/04/2024 11:00 AM EST Nurse Only Ancillary 65 [facility] 293 [facility], [place] [address] College, Nurse Annual Wellness Visit [address] [address] Health Maintenance Due Date Last Done Comments Zoster Vaccines (1 of 2) 09/30/2011 08/05/2011 DTaP,Tdap,and Td Vaccines (2 - Td or Tdap) 08/15/2022 08/15/2012 COVID-19 Vaccine ( season) 2023 05/03/2023, 04/17/2021, 04/17/2021, Additional history exists Depression Screening 07/27/2024 07/27/2023 Albumin/Creatinine Ratio 02/18/2025 02/18/2022, 0609/2020 Pneumococcal Vaccine: 65+ Years Completed 05/09/2015, 09/28/2002 [...] Not on filedocumented as of this encounter Visit Diagnoses Diagnosis Metastatic cancer to spine (HCC) Secondary malignant neoplasm of bone and bone marrow documented in this encounter Advance Directives * Full Code (Latest Code Status on File) Date Activated Date Inactivated Comments 09/23/2023 7:00 PM 09/24/2023 4:37 PM This order r eflects the patients wishes and were consensually agreed upon. Question Answer Comments Discussion of Advance Directives occurred with: Patient Care Teams Temporary Receptionist Relationship Specialty Start Date End Date Paul Valencia DO [address] [place] [address] PCP - General Internal Medicine 04/23/21 documented as of this encounter
--- OUTSIDE RECORDS SUMMARY | 2023-11-26 18:38 | External Medical Summary ---
Author Name Unknown Address Unknown Organization [id number]:[facility] M[address] - [address] [place] [address] Laboratory Report Ordering Provider Test Date Status KENNEY MILLER 11/25/2023 12:23:18 Final Observation Date Value Abnormality Reference (Units ) Status Nucleated erythrocytes/100 leukocytes [Ratio] in Blood by Automated count 11/25/2023 12:23:18 Final Performing Location [facility] M[facility] 57-[address] 0 - [address] [place] [address]
--- OUTSIDE RECORDS SUMMARY | 2023-11-26 18:38 | External Medical Summary ---
Author Name Unknown Address Unknown Organization [id number][facility] - [address] [place] [address] Laboratory Report Ordering Provider Test Date Status KENNEY MILLER 11/25/2023 12:23:18 Final Observation Date Value Abnormality Reference (Units ) Status SYNC LEUKOCYTES IN BLOOD BY AUTOMATED COUNT 11/25/2023 12:23:18 5.21 4.00-10.80 (K/uL) Final Segs 11/25/2023 12:23:18 82.4 Above high normal 40.0-75.0 (%) Final Lymphs % 11/25/2023 12:23:18 4.2 Below low normal 18.0-42.0 (%) Final Monos 11/25/2023 12:23:18 13.4 Above high normal 1.0-11.0 (%) Final Eosinophils 11/25/2023 12:23:18 0.0 0.0-6.0 (%) Final Basos 11/25/2023 12:23:18 0.0 0.0-2.0 (%) Final Absolute Segs 11/25/2023 12:23:18 4.29 1.80-7.70 (K/uL) Final Lymphs, absolute 11/25/2023 12:23:18 0.22 Below low normal 1.00-4.80 (K/ul) Final Monos, Abs 11/25/2023 12:23:18 0.70 0.00-1.10 (K/uL) Final Eos, Abs 11/25/2023 12:23:18 0.00 0.00-0.70 (K/uL) Final Basos, Abs 11/25/2023 12:23:18 0.00 0.00-0.20 (K/uL) Final Performing Location [facility]-[address] 0 - [address] [place] [address]
--- OUTSIDE RECORDS SUMMARY | 2023-11-26 18:39 | External Medical Summary | Summary of Care ---
Author Name Unknown Organization [facility] Address [address] [place] [address] Phone [phone] Care Team Providers Care Cyanide Pot Tender Name Role Phone Osmani Valencia DO Primary Care Provider [phone] Reason for Visit * Reason Onset Date Comments Appointment 11/22/2023 Encounter Details Date Type Department Care Team (Late st Contact Info) Description 11/22/2023 Telephone Nutrition & Weight Management, [facility] [address] [facility] [address] Zuleika Alonzo RDN [address] [place] [address] Appointment Allergies No known active allergiesdocumented as of this encounter (statuses as of 11/22/2023) Medications Medication Sig Dispensed Refills Start Date End Date Status Polyethylene Glycol 3350 17 GM/SCOOP Oral Powder (MiraLax)Indication s:Constipation, unspecified constipation type Take 17 g by mouth daily. Dissolve one heaping tablespoon in 8 ounces of water or juice. 578 g 03/25/2020 Active Calcium/Vitamin D3 Gummies 200-200 MG-UNIT Oral Tablet Chewable (Ca Phosphate-Cholecalc iferol) Take 1 Tablet by mouth daily at noon. Active Vitamin C 100 MG Oral Tablet Chewable Take 1 Tablet by mouth daily at noon. Active Fluticasone Propionate 50 MCG/ACT Nasal Suspension (Flonase)Indication s:Non-seasonal allergic rhinitis due to pollen ADMINISTER 2 SPRAYS INTO EACH NOSTRIL DAILY 16 g 5 11/30/2022 12/08/2023 Active Docusate Sodium 100 MG Oral Capsule (Colace) Take 1 Capsule by mouth in the morning and 1 Capsule before bedtime. 06/10/2023 Active Furosemide 20 MG Oral Tablet (Lasix)Indications: HTN, goal below 140/90 Take 1 Tablet by mouth in the morning. 30 Tablet 5 06/16/2023 Active amLODIPine Besylate 10 MG Oral Tablet (Norvasc)Indication s:HTN, goal below 140/90 Take 1 Tablet by mouth in the morning. 15 Tablet 3 07/08/2023 Active predniSONE 5 MG Oral Tablet (Deltasone)Indicati ons:Prostate cancer (HCC) Take 1 Tablet by mouth in the morning and 1 Tablet before bedtime. 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 30 Tablet 3 09/20/2023 Active Prochlorperazine Maleate 10 MG Oral Tablet (Compazine)Indicati ons:Tongue cancer (HCC),Metastasis to head and neck lymph [...] directed through feeding tube via gravity bag 53830 mL 11 09/27/2023 Active Additional Information Patient taking differently: Administer 250 mL 4 times daily, as directed through feeding tube via gravity bag, Reported on 11/10/2023 Lidocaine 5 % External Patch (Lidoderm)Indicatio ns:Metastatic cancer to spine (HCC) Place 1 Patch over 12 hours topically on the skin daily. On back at site of pain 30 Patch 10/04/2023 Active Nutrisource Fiber Oral Powder Administer one to two scoops daily as directed, through feeding tube via gravity bag means. 410 g 11 10/11/2023 Active Additional Information Patient not taking.Reported on 10/18/2023 traMADol HCl 50 MG Oral Tablet (Ultram)Indications :Metastatic cancer to spine (HCC) Take 1 Tablet by mouth every 8 hours as needed for Severe Pain. 60 Tablet 10/27/2023 Active Sertraline HCl 25 MG Oral Tablet (Zoloft)Indications :Anxiety Take 1 Tablet by mouth in the morning. 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 0 08/26/2003 Overview: ICD-10 update of inactive term Tobacco use disorder 09/28/2002 Overview: Quit 2002 documented as of this encounter (statuses as of 11/22/2023) Resolved Problems Problem Noted Date Diagnosed Date [...] as of this encounter (statuses as of 11/22/2023) Immunizations Name Administration Dates Next Due COVID-19 mRNA, LNP-s, No Pre serve, 2-Dose Series (Lime[employer]) 09/16/2020,08/21/2020 COVID-19, LNP-s, No Preserve , Jama-sucrose, Ages 12+ (LimeTray) 04/17/2021 COVID-19, MRNA-LNP, 23-24, P F, 30 MCG/0.3 mL, 12 YRS AND ABOVE, IM (PFIZER-Comirnaty) 05/03/2023 H1N1 2009 Influenza, IM 09/03/2009 Pneumococcal Conjugate Vacc, 13 Valent (Prevnar) 05/09/2015 Pneumococcal Polysaccharide PPV23 (Pneumovax) 09/28/2002 Seasonal Influenza Virus Vac cine, Unspecified Formulation 03/09/2014 Seasonal Influenza, PF, 6 M & above, IM , (FluLaval or Fluzone) 03/25/2020,05/16/2018,04/29/2017 Seasonal Influenza, Quadriva lent Hd (Fluzone Hd) 04/11/2023,03/11/2022,05/07/2021 Seasonal Influenza, Quadriva lent, No Preserve, IM 05/05/2016,04/10/2015 04/14/2016 Seasonal Influenza, Split, I IV3, With Preserve, Inj 03/09/2014,03/17/2013,05/04/2012,02/26,05/05/2010,09/03/2009,04/23/20 08,06/01/2007,05/23/2006 Seasonal Influenza, Trivalen t, Adjuvanted, 65+ yrs [...] (15 years old or older) No 09/23/19 24 Cognitive Status Response Date of Assessm ent Because of a physical, menta l, or emotional condition, do you have serious difficulty concentrating, remembering, or making decisions? (5 years old or older) No 09/23/2023 documented as of this encounter Miscellaneous Notes * Telephone Encounter - Drea Poole CMA - 11/22/2023 10:45 AM EDT No sooner appts available as of now, put pt on cancellation list if something sooner becomes available. * Telephone Encounter - Zuleika Alonzo RDN - 11/22/2023 10:04 AM EDT Pt is scheduled with me on 12/08 for tube feed f/u. He is currently paying OOP for all supplies, needs to have updated RD note for insurance reasons. Please look to see if I have any cancellations we can move pt to sooner than 12/08. If [address] on recall list. Do not cxl 12/08 in nothing is available. documented in this encounter Plan of Treatment Upcoming Encounters Date Type Department Care Team (Late st Contact Info) Description 11/28/2023 11:00 AM EDT Laboratory Laboratory [facility] [place] [address] [place] [phone] [facility] [address] [facility] [place] [address] 11/28/2023 11:30 AM EDT Immunization/Injecti on Hematology/Oncology Treatment, [place] [address] [place] [phone] Nurse, Med 4 [address] [place] [address] 12/07/2023 11:40 AM EDT Office Visit Family Practice 65 [facility] 293 [facility], [place] [address] Osmani Valencia DO 293 [place] [address] 12/09/2023 1:50 PM EDT Nutrition Services Nutrition & Weight Management, [facility] [address] [address] Zuleika Alonzo RDN 132 [facility] [place] [address] 12/12/2023 3:00 PM EDT Office Visit Hematology/Oncology [facility] 200 [facility], [place] [phone] Sendy Franco CRNP [address] [place] [address] 12/19/2023 9:45 AM EDT Pharmacy Pharmacy Hematology Oncology [facility] [address] [place] [address] [facility], [facility] Hem/Onc [address] [place] [address] 01/02/2024 4:00 PM EDT Home Visit [facility] [address] [place] [address] Phyllis Toure, RN [address] [place] [address] 05/04/2024 11:00 AM EST Nurse Only Ancillary 65 [facility] 293 [facility], [place] [address] College, Nurse Annual Wellness Visit [address] [address] Health Maintenance Due Date Last Done Comments Zoster Vaccines (1 of 2) 09/30/2011 08/05/2011 DTaP,Tdap,and Td Vaccines (2 - Td or Tdap) 08/15/2022 08/15/2012 COVID-19 Vaccine (5 - season) 2023 05/03/2023, 04/17/2021, 04/17/2021, Additional history [...] Advance Directives occurred with: Patient Care Teams Cyanide Pot Tender Relationship Specialty Start Date End Date Osmani Valencia DO [address] [place] [address] PCP - General Internal Medicine 04/23/21 documented as of this encounter
--- OUTSIDE RECORDS SUMMARY | 2023-11-26 18:39 | External Medical Summary | Summary of Care ---
Author Name Unknown Organization [facility] Address [address] [place] [address] Phone [phone] Care Team Providers Care Filling Station Laborer Name Role Phone Osmani Valencia DO Primary Care Provider [phone] Reason for Visit * Reason Onset Date Comments Appointment 11/22/2023 Encounter Details Date Type Department Care Team (Late st Contact Info) Description 11/22/2023 Telephone Nutrition & Weight Management, [facility] [address] [facility] [address] Zuleika Alonzo RDN [address] [facility] [place] [address] Appointment Allergies No known active allergiesdocumented as [...] directed through feeding tube via gravity bag 83164 mL 11 09/27/2023 Active Additional Information Patient [...] 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 0 08/26/2003 [...] mRNA, LNP-s, No Pre serve, 2-Dose Series (daPulse) 09/16/2020,08/21/2020 COVID-19, LNP-s, No Preserve , Jama-sucrose, Ages 12+ (daPulse) 04/17/2021 COVID-19, MRNA-LNP, 23-24, P F, 30 [...] encounter Miscellaneous Notes * Telephone Encounter - Zuleika Alonzo RDN [...] Description 11/28/2023 11:00 AM EDT Laboratory Laboratory [facility] 200 [facility] [place] [phone] [place] [facility] 200 [facility] [place] [address] 11/28/2023 11:30 AM EDT Immunization/Injecti on Hematology/Oncology Treatment, [place] [address] [place] [phone] Nurse, Med 200 [facility] [place] [address] 12/07/2023 11:40 AM EDT Office Visit Family Practice [address], [place] 293 [place] [phone] Osmani Valencia DO 293 [place] [address] 12/09/2023 1:50 PM EDT Nutrition Services Nutrition & Weight Management, [facility] [address] [place] [address] Zuleika Alonzo RDN [address] [place] [address] 12/12/2023 3:00 PM EDT Office Visit Hematology/Oncology [facility] 200 [facility], [place] [address] Sendy Franco CRNP 400 [facility] [place] [address] 12/19/2023 9:45 AM EDT Pharmacy Pharmacy Hematology Oncology [facility] [address] [place] [address] [facility], [facility] Hem/Onc [address] [place] [address] 01/02/2024 4:00 PM EDT Home Visit [facility] [address] [place] [address] Phyllis Toure RN [address] [place] [address] 05/04/2024 11:00 AM EST Nurse Only Ancillary 65 [facility] 293 [facility], [place] [address] College, Nurse Annual Wellness Visit [address] [place] [address] Health Maintenance Due Date Last Done Comments [...] Advance Directives occurred with: Patient Care Teams Filling Station Laborer Relationship Specialty Start Date End Date Osmani Valencia DO [address] [place] [address] PCP - General Internal Medicine 04/23/21 documented as of this encounter
--- OUTSIDE RECORDS SUMMARY | 2023-11-26 20:25 | External Medical Summary ---
Author Name Unknown Address Unknown Organization K01:[facility]ORY [facility] - [address] [place] [address] Laboratory Report Ordering Provider Test Date Status KENNEY MILLER 11/25/2023 12:23:18 Final Observation Date Value Abnormality Reference (Units ) Status TSH 11/25/2023 12:23:18 2.66 0.27-4.20 (uIU/mL) Final Performing Location [facility] - [address] [place] [address]
--- OUTSIDE RECORDS SUMMARY | 2023-11-26 20:25 | External Medical Summary ---
Author Name Unknown Address Unknown Organization K01:LAB[facility]ATORY [facility] - [address] [place] [address] Laboratory Report Ordering Provider Test Date Status KENNEY MILLER 11/25/2023 12:23:18 Final Observation Date Value Abnormality Reference (Units ) Status Magnesium 11/25/2023 12:23:18 1.5 1.5-2.6 (m g/dL) Final Performing Location LABORATORY [facility] - [address] [place] [address]
--- OUTSIDE RECORDS SUMMARY | 2023-11-26 20:25 | External Medical Summary | Summary of Care ---
Author Name Unknown Organization [facility] Address [address] [place] [address] Phone [phone] Care Team Providers Care Door Fitter Name Role Phone Osmani Valencia DO Primary Care Provider [phone] Reason for Visit * Reason Onset Date Comments Test Results 11/25/202311/24 Encounter Details Date Type Department Care Team (Late st Contact Info) Description 11/25/2023 Telephone Family Practice [address] [place] [address] [place] [address] Osmani Valencia DO [address] [place] [address] Test Results (11/24) Allergies No known active allergiesdocumented as of this encounter (statuses as of 11/25/2023) Medications Medication Sig Dispensed Refills Start Date End Date Status Polyethylene Glycol 3350 17 GM/SCOOP Oral Powder (MiraLax)Indicat ions:Constipatio n, unspecified constipation type Take 17 g by mouth daily. Dissolve one heaping tablespoon in 8 ounces of water or juice. 578 g 0 Active Calcium/Vitamin D3 Gummies 200-200 MG-UNIT Oral Tablet Chewable (Ca Phosphate-Cholec alciferol) Take 1 Tablet by mouth daily at noon. Active Vitamin C 100 MG Oral Tablet Chewable Take 1 Tablet by mouth daily at noon. Active Fluticasone Propionate 50 MCG/ACT Nasal Suspension (Flonase)Indicat ions:Non-seasona l allergic rhinitis due to pollen ADMINISTER 2 SPRAYS INTO EACH NOSTRIL DAILY 16 g 5 3 12/08/19 24 Active Docusate Sodium 100 MG Oral Capsule (Colace) Take 1 Capsule by mouth in the morning and 1 Capsule before bedtime. 3 Active predniSONE 5 MG Oral Tablet (Deltasone)Indic ations:Prostate cancer (HCC) Take 1 Tablet by mouth in the morning and 1 Tablet before bedtime. 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 60 Tablet 2 4 Active Apixaban 2.5 MG Oral Tablet (Eliquis) Take 1 Tablet by mouth in the morning and 1 Tablet before bedtime. 60 Tablet 11 4 Active Sennosides 8.6 MG Oral Tablet Take 1 Tablet by mouth in the morning and 1 Tablet before bedtime. 4 Active Nutren 2.0 Oral Liquid Administer 250 mL 5 times daily, as directed through feeding tube via gravity bag 11178 mL 11 4 Active Additional Information Patient taking differently: Administer 250 mL 4 times daily, as directed through feeding tube via gravity bag, Reported on 11/10/2023 Lidocaine 5 % External Patch (Lidoderm)Indica tions:Metastatic cancer to spine (HCC) Place 1 Patch over 12 hours topically on the skin daily. On back at site of pain 30 Patch 4 Active Nutrisource Fiber Oral Powder Administer one to two scoops daily as directed, through feeding tube via gravity bag means. 410 g 11 4 Active Additional Information Patient not taking.Reported on 10/18/2023 traMADol HCl 50 MG Oral Tablet (Ultram)Indicati ons:Metastatic cancer to spine (HCC) Take 1 Tablet by mouth every 8 hours as needed for Severe Pain. 60 Tablet 4 Active Sertraline HCl 25 MG Oral Tablet (Zoloft)Indicati ons:Anxiety Take 1 Tablet by mouth in the morning. 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 30 Packet 4 Active Melatonin 5 MG Oral CapsuleIndicatio ns:Primary insomnia Take 1 Capsule by mouth at bedtime. 30 Capsule 4 Active Ascorbic Acid 500 MG Oral Tablet 100 mg (0.2 x 500 mg) Via Peg Tube daily in the morning 30 Tablet 4 Active Giltuss EX Maximum Strength 400 MG/10ML Oral Liquid (guaiFENesin) 200 mg (5 mL) orally every 6 hours 118 mL 4 Active guaiFENesin ER 600 MG Oral Tablet Extended Release 12 Hour (Humibid LA) Take 600 mg (1 tablet) orally twice a day 30 Tablet 4 Active fentaNYL 25 MCG/HR Transdermal Patch 72 Hour (Duragesic)Indic ations:Metastati c cancer to spine (HCC) Place 1 Patch over 72 hours topically on the skin every 3 days. 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 For pain control. 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 Home concentrator and Portable concentrator 1 Each 4 Active amLODIPine Besylate 10 MG Oral Tablet (Norvasc)Indicat ions:HTN, goal below 140/90 Take 0.5 Tablets by mouth in the morning. 4 Active Furosemide 20 MG Oral Tablet (Lasix)Indicatio ns:HTN, goal below 140/90 Take 1 Tablet by mouth in the morning. 30 Tablet 5 3 11/25/19 24 Discontinued(Fl dication List Clean Up) amLODIPine Besylate 10 MG Oral Tablet (Norvasc)Indicat ions:HTN, goal below 140/90 Take 1 Tablet by mouth in the morning. 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 * Telephone Encounter - Isa Hutson LPN - 11/25/2023 3:11 PM EDT Spoke to Anay aware and will comply. Thank you * Telephone Encounter - Isa Hutson LPN - 11/25/2023 3:06 PM EDT ----- Message from Osmani Valencia DO sent at 11/25/2023 3:05 PM EDT ----- No Pneumonia present on CXR. Patient is weak and volume depleted. Stop Furosemide. Decrease Amlodipine to 5 mg daily. Needs ED evaluation for failure to thrive. documented in this encounter Plan of Treatment Upcoming Encounters Date Type Department Care Team (Late st Contact Info) Description 11/28/2023 11:00 AM EDT Laboratory Laboratory [facility] [address] [facility] [place] [phone] [facility] [address] [facility] [place] [address] 11/28/2023 11:30 AM EDT Immunization/Injecti on Hematology/Oncology Treatment, [place] [facility] [phone] Nurse, Med [address] [facility] [place] [address] 11/30/2023 11:00 AM EDT Scheduled Telephone Family Practice [address] [facility] [address] [facility] [place] [phone] College, Nurse Fam Prac [address] [address] 12/07/2023 11:40 AM EDT Office Visit Family Practice [address] [facility] [address] [place] [phone] Osmani Valencia, [address] [place] [address] 12/09/2023 1:50 PM EDT Nutrition Services Nutrition & Weight Management, [facility] [address] [place] [address] Zuleika Alonzo RDN 132 [facility] [place] [address] 12/12/2023 3:00 PM EDT Office Visit Hematology/Oncology [facility] [address] [place], [place] [phone] Sendy Franco CRNP [address] [facility] [place] [address] 12/12/2023 4:20 PM EDT Office Visit Family Practice [address] [facility] [address] [facility] [place] [address] Osmani Valencia DO [address] [place] [address] 12/19/2023 9:45 AM EDT Pharmacy Pharmacy Hematology Oncology [facility] [address] [place] [address] [facility] [place] Hem/Onc [address] [place] [address] 01/02/2024 4:00 PM EDT Home Visit [facility] [address] [facility] [address] [facility] [place] [address] Phyllis Toure, RN [facility] [place] [address] 05/04/2024 11:00 AM EST Nurse Only Ancillary 65 [facility] 293 [facility], [place] [address] College, Nurse Annual Wellness Visit [address], [place] [address] Health Maintenance Due Date Last Done Comments COVID-19 Vaccine (2022- season) 2023 05/03/2023, 04/17/2021, 04/17/2021, Additional history exists Postponed from 06/28/2023 (Patient Declined After Education) DTaP,Tdap,and Td Vaccines (2 - Td or Tdap) 11/26/2023 08/15/2012 Postponed from 08/15/2022 (Patient Declined After Education) Zoster Vaccines (1 of 2) 11/26/2023 08/05/2011 Pos tponed from 09/30/2011 (Patient Declined After Education) Depression Screening 07/27/2024 07/27/2023 Albumin/Creatinine Ratio 02/18/2025 02/18/2022, 11/26 Pneumococcal Vaccine: 65+ Years Completed 05/09/2015, 09/28/2002 Influenza Vaccine (FLU shot) Completed 04/11/2023, 03/11/2022, 05/07/2021, Additional history exists GARDASIL-HPV IMMUNIZATION [...] as of this encounter Visit Diagnoses Diagnosis HTN, goal below 140/90 Unspecified essential hypertension documented in this encounter Advance Directives * Full Code (Latest Code Status on File) Date Activated Date Inactivated Comments 09/23/2023 7:00 PM 09/24/2023 4:37 PM This order r eflects the patients wishes and were consensually agreed upon. Question Answer Comments Discussion of Advance Directives occurred with: Patient Care Teams Door Fitter Relationship Specialty Start Date End Date Osmani Valencia DO [address] [facility] [place] [address] PCP - General Internal Medicine 04/23/21 documented as of this encounter
[2023-11-26] MEDS ORDERED: guaiFENesin 600 MG TABCR PO SCH (21:00)
[2023-11-26] MEDS: MELATONIN 3 MG TAB PO SCH (21:45)
[2023-11-26] MEDS: POLYETHYLENE (MIRALAX) 17 GM PACK GT SCH (21:45)
[2023-11-27 06:24] LABS: Hematocrit (blood only) 30.2 % (42.0-52.0); Hemoglobin 9.9 g/dl (14.0-18.0); Mean Corpuscular Hemoglobin 29.6 pg (25.0-34.0); Mean Corpuscular Hgb Conc 32.8 g/dL (32.0-36.0); Mean Corpuscular Volume 90.4 fL (80.0-100.0); Mean Platelet Volume 8.9 fL (9.4-12.4); Platelet Count 269 K/uL (130-400); RDW Coefficient of Variation 17.6 % (11.5-14.5); RDW Standard Deviation 54.4 fL (36.4-46.3); Red Blood Count 3.34 M/uL (4.70-6.10)
[2023-11-27 07:06] LABS: BUN Creatinine Ratio 35.4 (10-20); Calcium 8.3 mg/dl (8.6-10.3); Est GFR (Non-African American) 86.3 ml/min; Magnesium 1.6 mg/dl (1.7-2.4); Phosphorus 3.4 mg/dl (2.5-4.9); Potassium 3.5 mmol/L (3.5-5.1)
[2023-11-27 07:16] LABS: Estimated Average Glucose 143 mg/dl; Hemoglobin A1C 6.6 % (4.5-5.6)
[2023-11-27] MEDS: MAGNESIUM SULFATE / D5W 1 GM/100 ML BAG IV SCH (11:23)
[2023-11-27] MEDS: POTASSIUM CHLORIDE 20 MEQ/15 ML UDC PEG STA (11:26)
--- NOTE | 2023-11-27 14:58 | Hospitalist Progress Note ---
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 Patient complained of junky cough symptoms since the time of recent discharge associated with the usual shortness of breath with exertion. He is being managed for the following: Possible aspiration pneumonia Recent entero-/rhinovirus URTI Sepsis POA: In the setting of aspiration pneumonia, tachypnea and tachycardia noted at presentation. Hypoxia: Patient tachypneic at presentation, VBG fairly WNL, no respiratory distress noted. Continue with Unasyn 11/25 Continue to feed, aspiration precaution. Speech therapy eval - f/u speech eval as OP. Continue with mouth care to reduce oral bacteria that can be contained in saliva and be potentially aspirated. Wean down oxygen as tolerated Droplet precaution, incentive spirometer Nebulization scheduled and as needed Monitor and replete electrolytes. Acute on chronic hyponatremia: recent outpatient sodium noted to be 129. 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 Admitting sodium of 132. today 137. Sodium level daily, increase protein content in the diet. Other chronic medical conditions: Continue with/resume home meds as and when able. hypertension, slight elevated secondary discomfort Recurrent DVT on Eliquis NSCLC ongoing radiation-Rad onc consulted. 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 Eliquis Full code Patient Ms. Cindy Carpenter, contact #[phone]. Text document was generated using milog voice recognition software. It may contain grammatical or spelling errors. Kindly contact undersigned for clarification of any documentation item in question. Admission and Anticipated Discharge Date Admission Date: November 25, 2023 Subjective Patient was seen and examined at bedside. Patient was lying in bed, on 2 L oxygen via nasal cannula, resting comfortably, appears very frail/weak/ill. Patient's son at bedside who was also updated on plan of care. Patient reports cough getting better, slept well last night. Patient reports pain under control, reports moving bowel. Physical Exam Physical Exam: GENERAL: Comfortable, pleasant, slightly hard of hearing,on 2L NC O2 SKIN: Pallor, warm HEENT: Partial alopecia, palpebral conjunctivae, no ptosis, moist buccal mucosa, nasal cannula in place NECK : Supple, neck erythema, minimal tenderness CHEST : Decreased breath sounds, scattered expiratory wheezes, no tenderness. lung sounds improving. HEART : Tachycardic, no obvious murmurs ABDOMEN: Some distention, PEG tube in place EXTREMITIES : Minimal LE swelling, no other conspicuous deformities noted NEUROLOGIC : Coherent, no facial asymmetry, slightly hard of hearing Results & Data Results & Data Vital Signs (Past 12 Hours) Vital Signs Temp Pulse Pulse Resp BP Pulse Ox O2 Del Method 11/27/23 12:47 97 H 18 96 Nasal Cannula 11/27/23 12:24 36.4 C L 98 H 16 144/74 H 94 Room Air 11/27/23 08:31 36.6 C 102 H 16 152/73 H 96 Room Air 11/27/23 08:00 Nasal Cannula 11/27/23 07:42 101 H 18 97 Nasal Cannula 11/27/23 07:39 100 H 11/27/23 03:12 36.9 C 92 H 16 148/55 H 94 Nasal Cannula O2 Flow Rate 11/27/23 12:47 2 11/27/23 12:24 11/27/23 08:31 11/27/23 08:00 2 11/27/23 07:42 3 11/27/23 07:39 11/27/23 03:12 2
--- NOTE | 2023-11-27 18:43 | Electrocardiogram Report ---
Test Reason : Blood Pressure : / mmHG Vent. Rate : 108 BPM Atrial Rate : 108 BPM P-R Int : 162 ms QRS Dur : 128 ms QT Int : 356 ms P-R-T Axes : 064 079 030 degrees QTc Int : 477 ms Sinus tachycardia Right bundle branch block Abnormal ECG When compared with ECG of 20-NOV-2023 20:23, Premature ventricular complexes are no longer Present Confirmed by Yovanny Saba ([id number]) on 11/27/2023 6:43:32 PM Referred By: Osmani Valencia Confirmed By:Yovanny Saba
[2023-11-28] MEDS: SODIUM CHLORIDE 0.65% NA SOLN 45 ML (OCEAN) PRN (01:40)
--- NOTE | 2023-11-28 07:03 | Communication Note ---
Date of Service: November 28, 2023 6 AM PEG tube noted to be dislodged in a.m. Ruptured PEG tube balloon as per RN. Patient without abdominal pain complaints. No bleeding concerns as per RN. Case discussed with Dr. Lowe (GI). Team will see in a.m. if staff unable to replace PEG tube. RN later updated of GI recommendations. RN informed me that ruptured balloon was black in color and PEG tube stoma had black liquid. Patient later seen at bedside. Patient denies black/bloody stools. Black PEG tube liquid noted to be occult blood positive on testing. Hemoglobin 9.9 (11/26) from 11.4 (11/24) AP UGIB Dislodged PEG tube Eliquis Rx for recurrent DVT Acute on chronic anemia secondary to UGIB IV PPI Hold Eliquis CBC now, transfuse PRBC if hemoglobin less than 7 and or for symptomatic anemia GI consult re: UGIB, dislodged PEG tube Will relay to AM provider.
[2023-11-28 08:01] LABS: Hematocrit (blood only) 31.5 % (42.0-52.0); Hemoglobin 10.5 g/dl (14.0-18.0); Mean Corpuscular Hemoglobin 29.9 pg (25.0-34.0); Mean Corpuscular Hgb Conc 33.3 g/dL (32.0-36.0); Mean Corpuscular Volume 89.7 fL (80.0-100.0); Mean Platelet Volume 8.9 fL (9.4-12.4); Platelet Count 302 K/uL (130-400); RDW Standard Deviation 56.1 fL (36.4-46.3); Red Blood Count 3.51 M/uL (4.70-6.10); White Blood Count 6.37 K/ul (4.8-10.8)
[2023-11-28 08:15] LABS: BUN Creatinine Ratio 30.3 (10-20); Calcium 8.4 mg/dl (8.6-10.3); Creatinine Clr Calc Pharmacy 75.9 ml/min; Est GFR (African American) 99.3 ml/min; Est GFR (Non-African American) 85.7 ml/min; Magnesium 1.5 mg/dl (1.7-2.4); Phosphorus 3.2 mg/dl (2.5-4.9); Potassium 3.8 mmol/L (3.5-5.1)
--- NOTE | 2023-11-28 08:42 | Radiation OncologyConsultation ---
Date of Consultation November 28, 2023 Assessment & Plan (1) Malignant neoplasm of base of tongue: Mr. 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 The patient's case has been reviewed at the multidisciplinary tumor board at [facility] and the recommendation is for concurrent chemotherapy with radiation therapy for the head and neck cancer and local radiation therapy for the right upper lobe lung cancer. 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 He began combined radiation and chemotherapy on 10/12/2023. Chemotherapy is comprised of weekly cisplatin. He has completed 32 of 33 treatments to the head and neck. He has completed 14 of 15 treatments to the thoracic spine. He is currently admitted for pneumonia and electrolyte imbalances. Unfortunately his PEG tube has also fallen out. Plans are for him to be seen by gastroenterology in regards to the PEG tube. He would like to proceed with getting his last currently planned treatments. Will await gastroenterology recommendations. The plan was for him to have a break following his current treatments. Will then plan SBRT to the lung lesion in approximately 1 month. Plan ATTENDING ADDENDUM The patient's case was reviewed with the midlevel provider. I agree with her notes. Radiation therapy will be held until the patient is cleared from the hospitalist's perspetive to resume radiation therapy. As per medical records, the patient does have feeding tube issues which do need to be resolved first. Radiation therapy may continue in the inpatient setting or outpatient setting. Please call us with any further questions or concerns. We will continue to document as needed in the patient's chart. History of Present Illness Reason for Consultation: Has been undergoing radiation therapy. Treatment to the head and neck as well as T-spine. Requesting Physician: Dr. Kim Attending Physician: Naomi Kim MD History of Present Illness 04/09/2020. PSA 55.5. 04/2020. PSA 47.7. 08/14/2020. PSA 51.07 10/17/2020. Diagnosed with prostate cancer. Biopsy showed prostatic adenocarcinoma. [place] 5+5. 2 of 5 cores positive. Perineural invasion. Metastatic disease of the iliac chain lymph nodes and focal area of increased uptake in the calvarium. Treated with Lupron every 3 to 4 months. 11/17/2020. PSA 61.21. 03/04/2021. PSA 3.24. 06/09/2021. PSA 1.48. 08/21/2021. PSA 1.50. 12/11/2021. PSA 4.67. 01/2022. Initiation of Zytiga and prednisone. 01/11/2023. PSA 0.03. 02/08/2023. PSA 0.03. 02/24/2023. Dermatology shave biopsies. Right forearm did show squamous cell carcinoma, at least in situ. 03/01/2023. PSA 0.02. 03/25/2023. Dermatology follow-up (Dr. Aldana). Review of pathology. Shave biopsy of lesion of the right forearm. Pathology report reveals focal basal cell carcinoma, superficial type, margins clear. Negative for residual squamous cell carcinoma. 04/22/2023. PSA 0.03. 06/08/2023. PSA 0.04. 06/10/2023. Medical oncology consultation (Dr. Dustin Esparza). History of prostate cancer. Patient continues on Lupron every 3 to 4 months. Started Zytiga 02/12/2022. 07/22/2023. PSA 0.05. 08/18/2023. Emergency room evaluation for right upper thoracic pain. 08/18/2023. Chest CT. 1. Spiculated 1.9 cm right apical pulmonary nodule. This is highly suggestive of primary lung cancer. Pulmonary consultation is recommended. 2. Adjacent indeterminate 9 mm solid right upper lobe nodule. A satellite lesion cannot be excluded. 3. 1.6 cm part solid right upper lobe nodule and possible additional 1.2 cm groundglass left lower lobe nodule. These suggest synchronous lesions, likely within the adenomatous/adenocarcinoma spectrum. 4. Probable mass within the left base of the tongue, partially imaged on this exam. Nonemergent CT of the neck with IV contrast is recommended. 5. Emphysema. 08/25/2023. Pulmonary consultation (Dr. Farah). Patient is diagnosed with a pulmonary nodule. Recommendation for PET/CT and bronchoscopy. 08/30/2023. Navigational bronchoscopy with biopsies. Lung, right upper lobe, transbronchial biopsy: Non-small cell carcinoma consistent with squamous cell carcinoma. Bronchial brushings, right upper lobe: Non-small cell carcinoma consistent with squamous cell carcinoma. 08/31/2023. CT of the neck. 1. Large enhancing mass at the left tongue base measuring 4.2 x 3.5 x 4.0 cm which involves the valleculaand extends across midline. 2. Pathologic left cervical lymphadenopathy. 3. Spiculated nodule within the right upper lobe measuring 1.9 cm. 09/02/2023. PSA 0.07. 09/02/2023. Primary care follow-up (Dr. Valencia)). Review of recent studies. Patient will be seen by ENT to evaluate the tongue mass. 09/06/2023. Medical oncology follow-up (Dr. Dustin Esparza). Recommendation for PET/CT. Patient be following up with ENT. Discussion of combined radiation and chemotherapy for treatment base of the tongue and possible SBRT to the lung mass. 09/07/2023. ENT consultation (Dr. Marquis). Patient has a large bulky mass at the base of the tongue involving both sides but more on the left. 09/07/2023. Biopsy of the base of the tongue. Epithelial hyperplasia, hyperkeratosis, and chronic mucosal inflammation. If there is continued clinical suspicion for malignancy, then a rebiopsy may be warranted. 09/08/2023. Pulmonary consultation. Patient has squamous cell carcinoma of the lung, stage I. Referral to radiation oncology. Clinical stage [id number]. Stage IA 2. 09/14/2023. Follow-up with otolaryngology (Dr. Jiménez). Head and neck tumor board. Recommendation for repeat tongue base biopsy and primary chemotherapy for oropharyngeal cancer and lung cancer. 09/15/2023. Direct laryngoscopy with biopsies. Large firm left base of tongue mass. Path report reveals: Pending. 09/19/2023. PET/CT. 1. Known left base of tongue mass intensely FDG avid consistent with malignancy. At least 2 abnormal appearing left level 2 lymph nodes also showing increased activity and concerning for metastatic disease. 2. Known right upper lobe mass shows increased activity with malignancy in the differential. Other nodular or groundglass similar findings noted in previous CT now negligible FDG uptake over groundglass and less specific. 3. Increased activity involving the T7 vertebral body with possible loss of height and potentially metastatic. 09/30/2023. MRI of the thoracic spine. 1. Acute to subacute, mild compression fracture of T6. Acute to subacute, moderate compression fracture of T7. In the setting of signal abnormality associated with the compression fractures, metastatic disease cannot be excluded. An interval follow-up MRI may be performed for further evaluation. 2. Multilevel, multifactorial degenerative changes of the thoracic spine as described, most prominent at T6T7 and T7-T8. Epidural lipomatosis. 3. Multinodular thyroid gland. Thyroid nodule within the inferior left thyroid lobe that measures 1.9 cm. A thyroid ultrasound may be performed for further evaluation. 4. Right lung mass that measures 1.4 cm, worrisome for neoplasm. 5. Small right-sided pleural effusion. 10/12/2023. Initiation of combined radiation and chemotherapy. Chemotherapy comprised of weekly cisplatin. 11/20/2023-11/21/2023. Admission for confusion diagnosed with rhinovirus. 11/20/2023. CT of the brain. No definite acute intracranial process identified. Presumed incidental chronic underlying age-related findings. 11/25/2023. Patient presents to emergency room due to weakness. Poor intake. He had nausea and ongoing cough. He was found to have dehydration. He had hyponatremia, hypokalemia, and felt to have sepsis. He was admitted for further observation and treatment. Patient has had ongoing radiation therapy. He has received 32 of 33 fractions of therapy to the head and neck region. He has completed 14 of 15 treatments to the thoracic spine. He did state that his back is feeling better. He has less pain. He unfortunately has thick mucus that builds up in the back of his throat. He has difficulty expectorating the mucus. His PEG tube has fallen out. Allergies Allergy/AdvReac Type Severity Reaction Status Date / Time No Known Allergies Allergy Verified 11/25/23 19:57 Home Medications Medication Instructions Recorded Confirmed Type amlodipine 10 mg tablet (Norvasc) 10 mg feeding tube QAM 08/23/23 11/25/23 History apixaban 2.5 mg tablet (Eliquis) 2.5 mg feeding tube BID 08/23/23 11/25/23 History fluticasone propionate 50 2 spray intranasal DAILY PRN Nasal 08/23/23 11/25/23 History mcg/actuation nasal Congestion spray,suspension (Allergy Relief (fluticasone)) furosemide 20 mg tablet (Lasix) 20 mg feeding tube QAM 08/23/23 11/25/23 History polyethylene glycol 3350 17 17 g feeding tube QPM 08/23/23 11/25/23 History gram/dose oral powder prednisone 5 mg tablet 5 mg feeding tube BID 08/23/23 11/25/23 History sertraline 25 mg tablet (Zoloft) 25 mg feeding tube QAM 08/23/23 11/25/23 History tramadol 50 mg tablet 50 mg feeding tube Q6H PRN Pain 10/31/23 11/25/23 History Calcium W/Vitamin D Liquid 1 dose feeding tube DAILY 11/20/23 11/25/23 History ascorbic acid (vitamin C) 500 mg/5 100 mg QDL 11/20/23 11/25/23 History mL oral liquid docusate sodium 50 mg/15 mL oral 100 mg feeding tube BID 11/20/23 11/25/23 History syrup melatonin 5 mg tablet 5 mg feeding tube HS 11/20/23 11/25/23 History naloxone 4 mg/actuation nasal spray 4 mg intranasal DIRECTED PRN 11/20/23 11/25/23 History Opioid Overdose nutritional supplements 250 ea feeding tube QID 11/20/23 11/25/23 History ondansetron HCl 8 mg tablet 8 mg feeding tube Q8H PRN 11/20/23 11/25/23 History NAUSEA/VOMITING potassium chloride 20 mEq oral 20 meq feeding tube QAM 11/20/23 11/25/23 History packet prochlorperazine maleate 10 mg 10 mg feeding tube Q6H PRN 11/20/23 11/25/23 History tablet NAUSEA/VOMITING sennosides 8.6 mg tablet (senna) 8.6 mg feeding tube BID PRN 11/20/23 11/25/23 History Constipation guaifenesin 200 mg/5 mL oral liquid 200 mg (5 mL) PO Q6H #118 mL 11/21/23 11/25/23 Rx fentanyl 12 mcg/hr transdermal 12 mcg transdermal .Q72HR 11/25/23 11/25/23 His tory patch fentanyl 25 mcg/hr transdermal 25 mcg transdermal .Q72HR 11/25/23 11/25/23 History patch Patient History Medical History (Updated 11/28/23 @ 15:00 by Cricket Copeland MD) Acute hyponatremia PEG tube malfunction Acute hypoxemic respiratory failure Shortness of breath Generalized weakness 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 There is notation of indeterminate midthoracic vertebral body anterior wedge compression Chronic rhinitis History of COVID-2020- no hosp; resolved Surgical History S/P bronchoscopy with transbronchial biopsies/brushings - 08/30/23 Dr. Farah History of laryngoscopy with biopsy of left base of tongue - 09/15/23 Dr. Marquis Status post epidural steroid injection 05/2023 Hx of colonoscopy S/P TURP History of detached retina repair Hx of cataract surgery x2 Family History Brother Colorectal cancer, Onset Age: 50 Father Lung cancer Grandfather (Paternal) Lung cancer Mother Gangrene Sister Breast cancer Brother Leukemia Social History (Updated 09/21/23 @ 13:26 by Karlie Campos RN) Smoking Status: Former smoker Tobacco Type: Cigarettes Age Started Using Tobacco: 19; Age Quit Using Tobacco: 64; packs per day: 1; Second Hand Exposure: No; Do You Dip or Chew Tobacco: No; Hx Alcohol Use: No Hx Substance Use: No Preferred Language: Greek Communication Ability: Effective Copyright Expert Required: No Beliefs That Will Affect Care: None marital status: Current Living Situation: Significant Other current occupational status: retired 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 Physical Exam Constitutional: WD/WN, vitals as above Eyes: PERRL, conjunctivae normal, anicteric sclerae ENMT: Ears: no hearing impairment Thick mucus is noted on the tongue and back of the throat. Moderate erythema. No [place]o ulcerations. No areas of bleeding. Neck: trachea midline, no thyromegaly Dusky erythema. Mild dry desquamation. Respiratory: normal respiratory effort, lungs clear to auscultation Cardiovascular: RRR, no murmur, no edema Gastrointestinal (Abdomen): normal bowel sounds, soft, nontender, no hepatosplenomegaly Skin: no rashes, warm and dry Psychiatric: A+Ox3, euthymic affect Lymphatic: no cervical or axillary lymphadenopathy Results (Rad Onc) Pathology Results: were reviewed and pertinent findings noted in HPI Imaging Studies: were reviewed and pertinent findings noted in HPI Time Spent Midlevel I spent [15] minutes in preparation for this follow up evaluation including reviewing all the clinical records, reviewing laboratory studies, pathology reports and imaging results. I spent [25] minutes with direct face to face interaction with the patient and/or family including performing a physical exam and answering all questions. I spent [10] minutes documenting this patient's visit. PG Care Time/CCT Total # of Minutes Spent Total Time Spent with Patient: Total time spent is greater than 50% in coordination of care (as documented) at patient's floor/unit and/or counseling patient: Coding Level of Care Code 55813 IN/OBS CONSULT LVL 3,45M Diagnoses Malignant neoplasm of base of tongue C01
[2023-11-28] MEDS: D5W AND NSS 1,000 ML IV SCH (09:40)
[2023-11-28] MEDS: PANTOprazole 80 MG in DEXTROSE 5% 100 ML IV STA (09:40)
[2023-11-28] MEDS: PANTOprazole 40 MG in DEXTROSE 5% MINI-B 100 ML IV SCH (09:48)
[2023-11-28] MEDS: MAGNESIUM SULFATE / D5W 1 GM/100 ML BAG IV SCH (10:29)
--- NOTE | 2023-11-28 11:01 | Gastrointestinal Consultation ---
Date of Consultation November 28, 2023 Assessment & Plan (1) PEG tube malfunction: Dr. Daly attempted to insert an 18 [place] tube at the bedside, unfortunately the site was already closed. A new tube can be attempted endoscopically, however due to the patient's pneumonia this may be delayed. We will coordinate with anesthesia & hospitalists to determine best timing based on all of his medical comorbidities. In the interim, consider alternative means of nutrition. Supervising Physician Co-Signing Physician Notes Agree with GAUTAM Pat as above Interviewed and examined patient and agree with above Abd: Soft, NT, ND, +BS, PEG site dressed with gauze, no drainage or tendernous. Continue current therapy and supportive care Recommend PEG tube placement when patient is stable clinically from acute illness. History of Present Illness Reason for Consultation: Dislodged PEG tube Attending Physician: Naomi Kim MD History of Present Illness Patient is an 88 yo male with metastatic tongue cancer. He receives all of his nutrition through an 18 [place] PEG tube placed in August 2023 at [facility] by Dr. Page. GI has been consulted because at some point during the evening his PEG tube fell out. Patient's family notes that he was receiving tube feeds around 9 PM on 11/26/22. On-call GI (Dr. Lowe) was contacted at some point in the night due to the tube falling out. He reports that he advised inserting a flores until GI could evaluate during the day. Upon inspection of the PEG site around 9:30 AM, there was no flores; the site had been taped over with gauze. Dr. Daly obtained consent to insert a new PEG tube. Unfortunately the site was closed and a new tube was unable to be placed. Patient is currently under hospitalist service for acute respiratory issues including a possible aspiration pneumonia. He is on IV Unasyn. Allergies Allergy/AdvReac Type Severity Reaction Status Date / Time No Known Allergies Allergy Verified 11/25/23 19:57 Home Medications Medication Instructions Recorded Confirmed Type amlodipine 10 mg tablet (Norvasc) 10 mg feeding tube QAM 08/23/23 11/25/23 History apixaban 2.5 mg tablet (Eliquis) 2.5 mg feeding tube BID 08/23/23 11/25/23 History fluticasone propionate 50 2 spray intranasal DAILY PRN Nasal 08/23/23 11/25/23 History mcg/actuation nasal Congestion spray,suspension (Allergy Relief (fluticasone)) furosemide 20 mg tablet (Lasix) 20 mg feeding tube QAM 08/23/23 11/25/23 History polyethylene glycol 3350 17 17 g feeding tube QPM 08/23/23 11/25/23 History gram/dose oral powder prednisone 5 mg tablet 5 mg feeding tube BID 08/23/23 11/25/23 History sertraline 25 mg tablet (Zoloft) 25 mg feeding tube QAM 08/23/23 11/25/23 History tramadol 50 mg tablet 50 mg feeding tube Q6H PRN Pain 10/31/23 11/25/23 History Calcium W/Vitamin D Liquid 1 dose feeding tube DAILY 11/20/23 11/25/23 History ascorbic acid (vitamin C) 500 mg/5 100 mg QDL 11/20/23 11/25/23 History mL oral liquid docusate sodium 50 mg/15 mL oral 100 mg feeding tube BID 11/20/23 11/25/23 History syrup melatonin 5 mg tablet 5 mg feeding tube HS 11/20/23 11/25/23 History naloxone 4 mg/actuation nasal spray 4 mg intranasal DIRECTED PRN 11/20/23 11/25/23 History Opioid Overdose nutritional supplements 250 ea feeding tube QID 11/20/23 11/25/23 History ondansetron HCl 8 mg tablet 8 mg feeding tube Q8H PRN 11/20/23 11/25/23 History NAUSEA/VOMITING potassium chloride 20 mEq oral 20 meq feeding tube QAM 11/20/23 11/25/23 History packet prochlorperazine maleate 10 mg 10 mg feeding tube Q6H PRN 11/20/23 11/25/23 History tablet NAUSEA/VOMITING sennosides 8.6 mg tablet (senna) 8.6 mg feeding tube BID PRN 11/20/23 11/25/23 History Constipation guaifenesin 200 mg/5 mL oral liquid 200 mg (5 mL) PO Q6H #118 mL 11/21/23 11/25/23 Rx fentanyl 12 mcg/hr transdermal 12 mcg transdermal .Q72HR 11/25/23 11/25/23 History patch fentanyl 25 mcg/hr transdermal 25 mcg transdermal .Q72HR 11/25/23 11/25/23 History patch Patient History Medical History (Updated 11/28/23 @ 12:38 by Kristel Byrne PA-C) Chronic lumbar pain Rib fracture 07/2023- unsure how rib fx occurred per pt; ER documentation indicates sahu spicion for potential early met or nondisplaced fx, no documentation of rib fracture on imaging reports or pulm notation. There is notation of indeterminate midthoracic vertebral body anterior wedge compression Chronic rhinitis History of COVID-2020- no hosp; resolved Surgical History (Updated 09/21/23 @ 10:52 by Karlie Campos RN) S/P bronchoscopy with transbronchial biopsies/brushings - 08/30/23 Dr. Farah History of laryngoscopy with biopsy of left base of tongue - 09/15/23 Dr. Marquis Status post epidural steroid injection 05/2023 Hx of colonoscopy S/P TURP History of detached retina repair Hx of cataract surgery x2 Family History (Updated 09/21/23 @ 13:22 by Karlie Campos RN) Brother Colorectal cancer, Onset Age: 50 Father Lung cancer Grandfather (Paternal) Lung cancer Mother Gangrene Sister Breast cancer Brother Leukemia Social History (Updated 09/21/23 @ 13:26 by Karlie Campos RN) Smoking Status: Former smoker Tobacco Type: Cigarettes Age Started Using Tobacco: 19; Age Quit Using Tobacco: 64; packs per day: 1; Second Hand Exposure: No; Do You Dip or Chew Tobacco: No; Hx Alcohol Use: No Hx Substance Use: No Preferred Language: Serbian Communication Ability: Effective Import And Export Clerk Required: No Beliefs That Will Affect Care: None marital status: Current Living Situation: Significant Other current occupational status: retired 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 Site has closed off. Psychiatric: Orientation: alert and oriented x 3 Results & Data Vital Signs (Past 12 Hours) Vital Signs Temp Pulse Pulse Resp BP Pulse Ox O2 Del Method 11/28/23 10:46 36.7 C 109 H 20 165/78 H 2 L Nasal Cannula 11/28/23 10:10 103 H 11/28/23 09:56 Nasal Cannula 11/28/23 07:33 101 H 12 95 Nasal Cannula 11/28/23 07:00 36.6 C 104 H 20 153/88 H 99 Nasal Cannula 11/28/23 03:38 36.9 C 65 16 133/75 96 Nasal Cannula 11/28/23 00:26 11/27/23 23:39 37.2 C 89 16 128/72 94 Nasal Cannula O2 Del Method O2 Flow Rate 11/28/23 10:46 2 11/28/23 10:10 11/28/23 09:56 2 11/28/23 07:33 2 11/28/23 07:00 2 11/28/23 03:38 2 11/28/23 00:26 Nasal Cannula 11/27/23 23:39 2 PG Care Time/CCT Total # of Minutes Spent Total Time Spent with Patient: Total time spent is greater than 50% in coordination of care (as documented) at patient's floor/unit and/or counseling patient: Coding Level of Care Code 61258 INT INP/OBS CARE 3/75MIN Diagnoses PEG tube malfunction K94.23
--- NOTE | 2023-11-28 13:45 | GI REPORT ---
Patient Name: Conner Carpenter Procedure Date: 11/28/2023 1:37 PM Date of : 1935 Admit Type: Inpatient Age: 88 Gender: Male Attending MD: Frederick Daly DO, Procedure: Non-endoscopic Tube Procedure Providers: Frederick Daly DO Referring MD: Osmani Valencia Indications: Replace PEG tube because existing gastrostomy tube came out Medicines: None Complications: No immediate complications. Estimated Blood Loss: Estimated blood loss: none. Procedure: Pre-Anesthesia Assessment: - Prior to the procedure, a History and Physical was performed, and patient medications and allergies were reviewed. The patient's tolerance of previous anesthesia was also reviewed. The risks and benefits of the procedure and the sedation options and risks were discussed with the patient. All questions were answered, and informed consent was obtained. Prior Anticoagulants: The patient has taken no anticoagulant or antiplatelet agents. After reviewing the risks and benefits, the patient was deemed in satisfactory condition to undergo the procedure. After obtaining informed consent, the site was prepped and the procedure was performed. The procedure was accomplished without difficulty. Findings: The existing gastrostomy tube has been completely dislodged. An 18f replacement PEG tube was attempted to be replaced, however, the tube would not pass, as the fistula site would not allow passage of PEG tube. Impression: - No specimens collected. Recommendation: - NPO. - WIll need attempt at PEG tube placement in when he is felt to be clinically stable from acute illness. Frederick Daly DO 11/28/2023 1:44:47 PM This report has been signed electronically. Note Initiated On: 11/28/2023 1:37 PM Number of Addenda: 0 I attest to the content of the Intraoperative Record and orders documented therein, exceptions below {[id number]}
[2023-11-28] MEDS: POTASSIUM CHLORIDE / WTR 10 MEQ/100 ML PLCT IV SCH (14:04)
--- NOTE | 2023-11-28 14:57 | Anesthesiology Consultation ---
Date of Service November 28, 2023 Assessment & Plan (1) Encounter for pre-operative examination: Chart Review Chart Review: Acceptable Risk for Surgery and Patient NOT seen in Pre Admission Testing Patient with minimal oxygen requirement currently. Being treated for possible aspiration pneumonia. GI could do PEG tube on 11/30/23 so will need to evaluate respiratory status DOS. Assuming he continues to improve from a pulm standpoint patient likely ok for upcoming procedure from anesthesia perspective. PEG tube vital for patient to receive nutrition so it's not an elective procedure. Spoke with GI and stated patient should be done in the main OR given concern for possible difficult airway (from his pharyngeal cancer) and for respiratory failure that could require advanced airway interventions. Consults Requested none History Height/Weight Height: 5 ft 9 in Weight: 78 kg Allergies Allergy/AdvReac Type Severity Reaction Status Date / Time No Known Allergies Allergy Verified 11/25/23 19:57 Medications Home Medications Medication Instructions Recorded Confirmed Last Taken amlodipine 10 mg tablet (Norvasc) 10 mg feeding tube QAM 08/23/23 11/25/23 11/25/23 apixaban 2.5 mg tablet (Eliquis) 2.5 mg feeding tube BID 08/23/23 11/25/23 11/25/23 08:00 fluticasone propionate 50 2 spray intranasal DAILY PRN Nasal 08/23/23 11/25/23 08/29/23 08:00 mcg/actuation nasal Congestion spray,suspension (Allergy Relief (fluticasone)) furosemide 20 mg tablet (Lasix) 20 mg feeding tube QAM 08/23/23 11/25/23 11/25/23 polyethylene glycol 3350 17 17 g feeding tube QPM 08/23/23 11/25/23 11/24/23 gram/dose oral powder prednisone 5 mg tablet 5 mg feeding tube BID 08/23/23 11/25/23 11/25/23 sertraline 25 mg tablet (Zoloft) 25 mg feeding tube QAM 08/23/23 11/25/23 11/25/23 tramadol 50 mg tablet 50 mg feeding tube Q6H PRN Pain 10/31/23 11/25/23 Unknown Calcium W/Vitamin D Liquid 1 dose feeding tube DAILY 11/20/23 11/25/23 11/25/23 ascorbic acid (vitamin C) 500 mg/5 100 mg QDL 11/20/23 11/25/23 11/25/23 mL oral liquid docusate sodium 50 mg/15 mL oral 100 mg feeding tube BID 11/20/23 11/25/23 11/25/23 08:00 syrup melatonin 5 mg tablet 5 mg feeding tube HS 11/20/23 11/25/23 11/24/23 naloxone 4 mg/actuation nasal spray 4 mg intranasal DIRECTED PRN 11/20/23 11/25/23 Unknown Opioid Overdose nutritional supplements 250 ea feeding tube QID 11/20/23 11/25/23 11/25/23 12:00 2 DOSES TODAY ondansetron HCl 8 mg tablet 8 mg feeding tube Q8H PRN 11/20/23 11/25/23 Unknown NAUSEA/VOMITING potassium chloride 20 mEq oral 20 meq feeding tube QAM 11/20/23 11/25/23 11/25/23 packet prochlorperazine maleate 10 mg 10 mg feeding tube Q6H PRN 11/20/23 11/25/23 Unknown tablet NAUSEA/VOMITING sennosides 8.6 mg tablet (senna) 8.6 mg feeding tube BID PRN 11/20/23 11/25/23 Unknown Constipation guaifenesin 200 mg/5 mL oral liquid 200 mg (5 mL) PO Q6H #118 mL 11/21/23 11/25/23 11/25/23 12:00 fentanyl 12 mcg/hr transdermal 12 mcg transdermal .Q72HR 11/25/23 11/25/23 11/24/23 patch fentanyl 25 mcg/hr transdermal 25 mcg transdermal .Q72HR 11/25/23 11/25/23 11/24/23 patch Active Medications Generic Name Dose Route Start Last Admin Trade Name Freq PRN Reason Stop Dose Admin Amlodipine Besylate 10 mg 11/26/23 09:00 11/28/23 08:46 Amlodipine Besylate 5 Mg Tab PEG 12/26/23 08:59 Not Given QAM DEON Apixaban 2.5 mg 11/26/23 00:52 11/27/23 21:05 Apixaban 2.5 Mg Tab PO 12/26/23 00:51 2.5 mg BID DEON Administration Docusate Sodium 100 mg 11/26/23 09:00 11/28/23 08:46 Docusate Sodium Syrup 100 Mg/10 Ml Udc PEG 12/26/23 08:59 Not Given BID DEON Ampicillin Sodium/Sulbactam 100 mls @ 100 mls/hr 11/26/23 06:00 11/28/23 14:03 Sodium 3,000 mg/ Sodium IV 12/03/23 05:59 100 mls/hr Chloride Q6H DEON Administration Dextrose/Sodium Chloride 1,000 mls @ 60 mls/hr 11/28/23 09:00 11/28/23 09:40 D5w And Nss IV 11/29/23 18:19 60 mls/hr .[id number] DEON Administration Melatonin 6 mg 11/26/23 21:00 11/27/23 21:04 Melatonin 3 Mg Tab PO 12/26/23 20:59 6 mg HS DEON Administration Miscellaneous 1 each 11/26/23 08:00 11/28/23 09:38 Check Fentanyl Patch Placement N/A 12/26/23 07:59 1 each QS DEON Administration Miscellaneous 1 each 11/26/23 08:00 11/28/23 09:39 Check Fentanyl Patch Placement N/A 12/26/23 07:59 1 each QS DEON Administration Nutritional Formula 0 ml 11/26/23 14:00 11/27/23 22:10 Nutren Liqd 2.0 1,000 Ml Bag GT 12/26/23 13:59 250 ml .See Protocol DEON Administration Protocol Polyethylene Glycol 17 gm 11/26/23 21:00 11/27/23 21:04 Polyethylene (Miralax) 17 Gm Pack GT 12/26/23 20:59 17 gm QPM DEON Administration Prednisone 5 mg 11/26/23 09:00 11/28/23 08:46 Prednisone 5 Mg Tab GT 12/26/23 08:59 Not Given BID DEON Sertraline HCl 25 mg 11/26/23 09:00 11/28/23 08:46 Sertraline Hcl 50 Mg Tablet PEG 12/26/23 08:59 Not Given QAM DEON Sodium Chloride 2 sprays 11/28/23 01:10 11/28/23 01:40 Sodium Chloride 0.65% Na Soln 45 Ml ([place]) NA 12/28/23 01:09 2 sprays TID PRN Administration Nasal Congestion Sterile Water 120 ml 11/26/23 14:00 11/28/23 14:05 Tube Feeding Water Flush GT 12/26/23 13:59 Not Given 0600,1000,1400,1800,2200 DEON Sterile Water 120 ml 11/26/23 14:05 11/28/23 14:05 Tube Feeding Water Flush GT 12/26/23 14:04 Not Given 0605,1005,1405,1805,2205 DEON Past Medical History Medical History (Updated 11/28/23 @ 15:00 by Cricket Copeland MD) Acute hyponatremia PEG tube malfunction Acute hypoxemic respiratory failure Shortness of breath Generalized weakness 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 There is notation of indeterminate midthoracic vertebral body anterior wedge compression Chronic rhinitis History of COVID-19 2020- no hosp; resolved PLEASE SEE RAD/ONC NOTE 11/28/23 FOR FULL DETAILS REGARDING CANCER DIAGNOSIS AND TREATMENT. 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 Patient complained of junky cough symptoms since the time of recent discharge associated with the usual shortness of breath with exertion. He is being managed for the following: Possible aspiration pneumonia Recent entero-/rhinovirus URTI Sepsis POA: In the setting of aspiration pneumonia, tachypnea and tachycardia noted at presentation. Hypoxia: Patient tachypneic at presentation, VBG fairly WNL, no respiratory distress noted. Past Family History Family History Brother Colorectal cancer, Onset Age: 50 Father Lung cancer Grandfather (Paternal) Lung cancer Mother Gangrene Sister Breast cancer Brother Leukemia Past Surgical History Surgical History S/P bronchoscopy with transbronchial biopsies/brushings - 08/30/23 Dr. Farah History of laryngoscopy with biopsy of left base of tongue - 09/15/23 Dr. Marquis Status post epidural steroid injection 05/2023 Hx of colonoscopy S/P TURP History of detached retina repair Hx of cataract surgery x2 Social History Smoking Status: Former smoker Do You Dip or Chew Tobacco: No Hx Alcohol Use: No Hx Substance Use: No substance use type: does not use Physical Exam Vital Signs Last Vital Signs Temp 36.7 C 11/28/23 10:46 Pulse 109 H 11/28/23 10:46 Resp 20 11/28/23 10:46 BP 165/78 H 11/28/23 10:46 Pulse Ox 2 L 11/28/23 10:46 O2 Del Method Nasal Cannula 11/28/23 10:46 O2 Flow Rate 2 11/28/23 10:46 Testing Laboratory Results 11/28/23 07:28 11/28/23 07:28 PT 10.2 Seconds (9.0-12.0) 11/25/23 16:34 INR 0.9 (0.9-1.1) 11/25/23 16:34 APTT 25 Seconds (21-31) 11/25/23 16:34 Hemoglobin A1c 6.6 % (4.5-5.6) H 11/27/23 05:40 Urine Color Yellow 11/25/23 16:42 Urine Appearance Clear (Clear) 11/25/23 16:42 Urine pH 5.5 (4.5-7.5) 11/25/23 16:42 Ur Specific [place] 1.019 (1.000-1.030) 11/25/23 16:42 Urine Protein 1+ (Negative) H 11/25/23 16:42 Urine Glucose (UA) Negative (Negative) 11/25/23 16:42 Urine Ketones Negative (Negative) 11/25/23 16:42 Urine Nitrite Negative (Negative) 11/25/23 16:42 Ur Leukocyte Esterase Negative (Negative) 11/25/23 16:42 Urine WBC (Auto) 0-5 /hpf (0-5) 11/25/23 16:42 Urine RBC (Auto) 0-2 /hpf (0-2) 11/25/23 16:42 U Hyaline Cast (Auto) 3-5 /lpf (0-2) H 11/25/23 16:42 U Epithel Cells (Auto) 3-5 /hpf (0-2) H 11/25/23 16:42 Urine Bacteria (Auto) None Seen (None Seen) 11/25/23 16:42 Blood Type O Positive 11/28/23 07:28 Antibody Screen NEGATIVE 11/28/23 07:28 Electrocardiogram Date: 11/25/23 DICTATED BY: Yovanny Saba MD Test Reason : Blood Pressure : / mmHG Vent. Rate : 108 BPM Atrial Rate : 108 BPM P-R Int : 162 ms QRS Dur : 128 ms QT Int : 356 ms P-R-T Axes : 064 079 030 degrees QTc Int : 477 ms Sinus tachycardia Right bundle branch block Abnormal ECG When compared with ECG of 20-NOV-2023 20:23, Premature ventricular complexes are no longer Present Confirmed by Yovanny Saba ([id number]) on 11/27/2023 6:43:32 PM Chest X-Ray Date: 11/25/23 XR chest 1V portable HISTORY: Worsening cough. COMPARISON: Chest 11/20/2023. FINDINGS: No pneumothorax. No pleural effusions. The cardiac silhouette is normal in size. Calcifications within the aortic knob. Bibasilar linear densities favor subsegmental atelectasis. There is a fiducial marker again noted within the right upper lobe. IMPRESSION: Bibasilar linear densities are nonspecific but favor subsegmental atelectasis. CHEST X-RAY ORDERED 11/28/23: FINAL READ PENDING
--- NOTE | 2023-11-28 15:29 | XRay Report ---
XR chest 1V portable HISTORY: Cough. COMPARISON: Chest 11/25/2023. FINDINGS: No pneumothorax. No pleural effusions. The cardiac silhouette is normal in size. Bibasilar densities have slightly progressed. The upper lung zones remain clear. No evidence for pulmonary torie a. No acute fractures. IMPRESSION: Bibasilar densities are again noted which have slightly progressed. This favors atelectasis. A mild p neumonitis also remains in the differential diagnosis. ACT 112: Negative or not required by law. Electronically signed by: Mt Henriquez M.D. 11/28/2023 3:27 PM
--- NOTE | 2023-11-28 16:35 | Hospitalist Progress Note ---
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 Patient complained of junky cough symptoms since the time of recent discharge associated with the usual shortness of breath with exertion. He is being managed for the following: Possible aspiration pneumonia/pneumonitis Recent entero-/rhinovirus URTI Sepsis POA: In the setting of aspiration pneumonia, tachypnea and tachycardia noted at presentation. Hypoxia: Patient tachypneic at presentation, VBG fairly WNL, no respiratory d istress noted. Continue with Unasyn 11/25 Continue to feed, aspiration precaution. Speech therapy eval - f/u speech eval as OP. Continue with mouth care to reduce oral bacteria that can be contained in saliva and be potentially aspirated. Wean down oxygen as tolerated Droplet precaution, incentive spirometer Nebulization scheduled and as needed Monitor and replete electrolytes. Lung sounds improving, pt reports feeling better/improving cough. Dislodged PEG tube: early am of 11/27. GI onboard, will hold eliquis until PEG tube reinserted per GI. Pt can have milkshake/protein shake - rn aware, will put pt on d5w ns as well. Acute on chronic hyponatremia: recent outpatient sodium noted to be 129. 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 Admitting sodium of 132. resolved. Sodium level daily, increase protein content in the diet when able. Other chronic medical conditions: Continue with/resume home meds as and when able. hypertension, slight elevated secondary discomfort Recurrent DVT on Eliquis NSCLC ongoing radiation-Rad onc consulted. Will likely eval in AM oropharyngeal cancer ongoing chemoradiation status post PEG tube placement prostate cancer currently on Lupron and steroid Rx metastatic bone disease on fentanyl patch, chronic anemia, hemoglobin at baseline Hypomagnesemia Steroid-induced hyperglycemia rule out DM past tobacco abuse PT OT JUAN anthony to assist with DC planning DVT prophylaxis. Eliquis on hold. scd Full code Patient Ms. Cindy Carpenter, contact #[phone]. Text document was generated using [employer] voice recognition software. It may contain grammatical or spelling errors. Kindly contact undersigned for clarification of any documentation item in question. Admission and Anticipated Discharge Date Admission Date: November 25, 2023 Subjective Patient was seen and examined at bedside. Patient was lying in bed, on 2 L oxygen via nasal cannula, resting comfortably, appears very frail/weak/ill. Patient's son and SO at bedside who was also updated on plan of care. Patient reports cough still bothering him, slept well last night. Patient reports pain under control, reports moving bowel. Pt had his peg tube dislodged overnight/in AM. Physical Exam Physical Exam: GENERAL: Comfortable, pleasant, slightly hard of hearing,on 2L NC O2 SKIN: Pallor, warm HEENT: Partial alopecia, palpebral conjunctivae, no ptosis, moist buccal mucosa, nasal cannula in place NECK : Supple, neck erythema, minimal tenderness CHEST : Decreased breath sounds, scattered expiratory wheezes - improved, no tenderness. lung sounds improving. HEART : Tachycardic, no obvious murmurs ABDOMEN: Some distention, PEG tube not noted. EXTREMITIES : Minimal LE swelling, no other conspicuous deformities noted NEUROLOGIC : Coherent, no facial asymmetry, slightly hard of hearing Results & Data Results & Data Vital Signs (Past 12 Hours) Vital Signs Temp Pulse Pulse Resp BP Pulse Ox O2 Del Method 11/28/23 16:03 36.8 C 101 H 22 164/89 H 94 Nasal Cannula 11/28/23 15:51 95 H 11/28/23 10:46 36.7 C 109 H 20 165/78 H 2 L Nasal Cannula 11/28/23 10:10 103 H 11/28/23 09:56 Nasal Cannula 11/28/23 07:33 101 H 12 95 Nasal Cannula 11/28/23 07:00 36.6 C 104 H 20 153/88 H 99 Nasal Cannula O2 Flow Rate 11/28/23 16:03 2 11/28/23 15:51 11/28/23 10:46 2 11/28/23 10:10 11/28/23 09:56 2 11/28/23 07:33 2 11/28/23 07:00 2
[2023-11-28] MEDS: IPRATROPIUM BROMIDE NEB SOLN 0.02% 0.5MG/2.5ML VIAL INH PRN (17:57)
[2023-11-28] MEDS: LEVALBUTEROL 1.25 MG/3 ML NEB NEB PRN (17:57)
[2023-11-28] MEDS: PANTOprazole 40 MG in SYRINGE 0 ML IV SCH (20:51)
[2023-11-29] MEDS: fentaNYL 25 MCG/HR TDSY TD SCH (05:50)
[2023-11-29] MEDS: fentaNYL 12 MCG/HR TDSY TD SCH (05:50)
[2023-11-29 07:32] LABS: Hematocrit (blood only) 32.3 % (42.0-52.0); Hemoglobin 10.6 g/dl (14.0-18.0); Mean Corpuscular Hemoglobin 29.7 pg (25.0-34.0); Mean Corpuscular Hgb Conc 32.8 g/dL (32.0-36.0); Mean Corpuscular Volume 90.5 fL (80.0-100.0); Mean Platelet Volume 8.9 fL (9.4-12.4); Platelet Count 287 K/uL (130-400); Red Blood Count 3.57 M/uL (4.70-6.10); White Blood Count 5.53 K/ul (4.8-10.8)
[2023-11-29 07:47] LABS: BUN Creatinine Ratio 21.1 (10-20); Calcium 8.3 mg/dl (8.6-10.3); Creatinine Clr Calc Pharmacy 70.5 ml/min; Est GFR (African American) 96.4 ml/min; Est GFR (Non-African American) 83.2 ml/min; Magnesium 1.5 mg/dl (1.7-2.4); Phosphorus 3.4 mg/dl (2.5-4.9); Potassium 3.6 mmol/L (3.5-5.1)
[2023-11-29] MEDS: POTASSIUM CHLORIDE / WTR 10 MEQ/100 ML PLCT IV SCH (10:03)
[2023-11-29] MEDS: MAGNESIUM SULFATE / D5W 1 GM/100 ML BAG IV SCH (10:03)
--- NOTE | 2023-11-29 11:39 | Communication Note ---
Date of Service: November 29, 2023 Plan for possible EGD with PEG placement in the OR tomorrow if pulmonary status allows. NPO status after midnight.
[2023-11-29] MEDS: Heparin IV Adult Wt-Based Low-Dose *NO* INITIAL Bolus Protocol IV STA (15:31)
[2023-11-29] MEDS: HEPARIN SODIUM/DEXTROSE 25,000 UNITS/500 ML BAG IV SCH (15:31)
--- NOTE | 2023-11-29 15:59 | Hospitalist Progress Note ---
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 Patient complained of junky cough symptoms since the time of recent discharge associated with the usual shortness of breath with exertion. He is being managed for the following: Possible aspiration pneumonia/pneumonitis Recent entero-/rhinovirus URTI Sepsis POA: In the setting of aspiration pneumonia, tachypnea and tachycardia noted at presentation. Hypoxia: Patient tachypneic at presentation, VBG fairly WNL, no respiratory d istress noted. Continue with Unasyn 11/25 Continue to feed, aspiration precaution. Speech therapy eval - f/u speech eval as OP. Continue with mouth care to reduce oral bacteria that can be contained in saliva and be potentially aspirated. Wean down oxygen as tolerated Droplet precaution, incentive spirometer Nebulization scheduled and as needed Monitor and replete electrolytes. Lung sounds improving, pt reports feeling better/improving cough. Dislodged PEG tube: early am of 11/27. GI onboard, will hold eliquis until PEG tube reinserted per GI [Hep drip started 11/28 given h/o dvt/current Ca status; to be held 6 am of 11/30/23]. ivf, liq diet. NPO midnight, possible peg tube placement pavel. Acute on chronic hyponatremia: recent outpatient sodium noted to be 129. 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 Admitting sodium of 132. resolved. Sodium level daily, increase protein content in the diet when able. Other chronic medical conditions: Continue with/resume home meds as and when able. hypertension, slight elevated secondary discomfort Recurrent DVT on Eliquis NSCLC ongoing radiation-Rad onc consulted. d/w rad onc - plan for radiation today. 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 Eliquis on hold. Hep drip, hold at 6 am of 11/30/23. Full code Patient Ms. Cindy Carpenter, contact #[phone]. Text document was generated using [employer] voice recognition software. It may contain grammatical or spelling errors. Kindly contact undersigned for clarification of any documentation item in question. Admission and Anticipated Discharge Date Admission Date: November 25, 2023 Subjective Patient was seen and examined at bedside. Patient was lying in bed, on 2 L oxygen via nasal cannula, resting comfortably, appears very frail/weak/ill. Patient's son and SO at bedside who was also updated on plan of care. Patient reports cough improving, slept well last night. Patient reports pain under control, reports moving bowel. Physical Exam Physical Exam: GENERAL: Comfortable, pleasant, slightly hard of hearing,on 2L NC O2 SKIN: Pallor, warm HEENT: Partial alopecia, palpebral conjunctivae, no ptosis, moist buccal mucosa, nasal cannula in place NECK : Supple, neck erythema, minimal tenderness CHEST : Decreased breath sounds, scattered expiratory wheezes - improved, no tenderness. lung sounds improving. HEART : Tachycardic, no obvious murmurs ABDOMEN: Some distention, PEG tube not noted. EXTREMITIES : Minimal LE swelling, no other conspicuous deformities noted NEUROLOGIC : Coherent, no facial asymmetry, slightly hard of hearing Results & Data Results & Data Vital Signs (Past 12 Hours) Vital Signs Temp Pulse Pulse Resp BP BP Pulse Ox 11/29/23 15:35 37.0 C 109 H 18 132/74 93 11/29/23 11:55 11/29/23 11:51 36.7 C 97 H 18 145/76 H 97 11/29/23 08:21 98 H 11/29/23 07:55 36.8 C 97 H 18 149/80 H 96 O2 Del Method O2 Flow Rate 11/29/23 15:35 Nasal Cannula 2 11/29/23 11:55 Nasal Cannula 3 11/29/23 11:51 Nasal Cannula 2 11/29/23 08:21 11/29/23 07:55 Nasal Cannula 2
[2023-11-29 16:41] LABS: Basophils # (auto) 0.04 K/uL (0.00-0.20); Basophils % (auto) 0.6 %; Eosinophils # (auto) 0.01 K/uL (0.00-0.50); Eosinophils % (auto) 0.2 %; Hematocrit (blood only) 29.1 % (42.0-52.0); Hemoglobin 9.4 g/dl (14.0-18.0); Immature Granulocytes # (auto) 0.23 K/uL (0.01-0.20); Immature Granulocytes % (auto) 3.7 %; Lymphocytes # (auto) 0.42 K/uL (1.20-3.40); Lymphocytes % (auto) 6.7 %; Mean Corpuscular Hgb Conc 32.3 g/dL (32.0-36.0); Mean Platelet Volume 9.3 fL (9.4-12.4); Monocytes # (auto) 0.49 K/uL (0.11-0.59); Monocytes % (auto) 7.8 %; Neutrophils # (auto) 5.09 K/uL (1.40-6.50); Platelet Count 406 K/uL (130-400); RDW Coefficient of Variation 17.9 % (11.5-14.5); RDW Standard Deviation 58.3 fL (36.4-46.3); Red Blood Count 3.13 M/uL (4.70-6.10); White Blood Count 6.28 K/ul (4.8-10.8)
[2023-11-29 17:10] LABS: Partial Thromboplastin Time 27 Seconds (21-31); Prothrombin Time 10.5 Seconds (9.0-12.0)
[2023-11-29 22:16] LABS: ANTI-Xa, UFH(UnfractionatedHep 0.19 IU/ml (0.3-0.7)
[2023-11-29] MEDS: HEPARIN SOD (PORCINE) 1000 UNIT/ML IV ONE (22:48)
[2023-11-30 06:11] LABS: Hematocrit (blood only) 33.8 % (42.0-52.0); Hemoglobin 11.2 g/dl (14.0-18.0); Mean Corpuscular Hgb Conc 33.1 g/dL (32.0-36.0); Mean Corpuscular Volume 90.6 fL (80.0-100.0); Mean Platelet Volume 8.9 fL (9.4-12.4); Platelet Count 315 K/uL (130-400); RDW Standard Deviation 56.8 fL (36.4-46.3); Red Blood Count 3.73 M/uL (4.70-6.10)
[2023-11-30 06:19] LABS: BUN Creatinine Ratio 18.7 (10-20); Calcium 8.6 mg/dl (8.6-10.3); Creatinine Clr Calc Pharmacy 66.8 ml/min; Est GFR (African American) 94.3 ml/min; Est GFR (Non-African American) 81.3 ml/min; Magnesium 1.6 mg/dl (1.7-2.4); Phosphorus 3.4 mg/dl (2.5-4.9)
[2023-11-30] MEDS: MAGNESIUM SULFATE / D5W 1 GM/100 ML BAG IV SCH (09:40)
--- NOTE | 2023-11-30 09:52 | History & Physical Bridge Note ---
Date of Service November 30, 2023 History & Physical Bridge Note I have examined the patient, reviewed the History & Physical and in the interval since the performance of the History & Physical I have noted the following changes of clinical significance: no changes noted Patient is stable. Less coughing. Currently on IV Unasyn so no need for further pre-op antibiotics. Continue to keep NPO and hold Eliquis. Will plan for EGD with attempt at PEG placement today in the OR around 1:30. Supervising Physician Co-Signing Physician Notes Agree with GAUTAM Pat as above Proceed with EGD and PEG tube placement today in OR
--- NOTE | 2023-11-30 10:55 | Hospitalist Progress Note ---
Date of Service November 30, 2023 Assessment & Plan (1) Acute hypoxemic respiratory failure: Plan: 88-year-old male with PMH of HTN, DVT on Eliquis, NSCLC ongoing radiation, oropharyngeal cancer undergoing chemoradiation status post PEG tube placement, metastatic bone disease on fentanyl patch, prostate cancer currently on Lupron and steroid treatment, chronic hyponatremia, chronic anemia [baseline hemoglobin around 11], past tobacco abuse presented to the ED after PCP office evaluation/concern of patient being weak and volume depleted/outpatient serum sodium noted to be 129. Patient complained of junky cough symptoms since the time of recent discharge associated with the usual shortness of breath with exertion. He is being managed for the following: Possible aspiration pneumonia/pneumonitis Recent entero-/rhinovirus URTI Sepsis POA: In the setting of aspiration pneumonia, tachypnea and tachycardia noted at presentation. Hypoxia: Patient tachypneic at presentation, VBG fairly WNL, no respiratory d istress noted. Currently on Unasyn since 11/25 Continue to feed, aspiration precaution. Speech therapy eval - f/u speech eval as OP. Continue with mouth care to reduce oral bacteria that can be contained in saliva and be potentially aspirated. Wean oxygen as tolerated Droplet precaution, incentive spirometer Neba as needed Replete hypomagnesemia Monitor and replete electrolytes. Dislodged PEG tube: early am of 11/27. GI onboard Continue to hold eliquis until PEG tube reinserted per GI [Hep drip started 11/28 given h/o dvt/current Ca status]. NPO for PEG placement today Acute on chronic hyponatremia: Recent outpatient sodium noted to be 129. 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 Admitting sodium of 132. Na is 135 today Other chronic medical conditions: Continue with/resume home meds as and when able. hypertension, slight elevated secondary discomfort Recurrent DVT NSCLC. Finished radiation on 11/29/23 for now per Son Oropharyngeal cancer ongoing chemoradiation status post PEG tube placement Metastatic bone disease on fentanyl patch, Chronic anemia, hemoglobin at baseline Hypomagnesemia Steroid-induced hyperglycemia rule out DM Past tobacco abuse PT OT JUAN anthony to assist with DC planning DVT prophylaxis. Eliquis on hold. Hep drip Full code Patient Ms. Cindy Carpenter, contact #[phone]. Updated son at bedside I spent a total of 45 minutes coordinating, documenting and providing care for this patient excluding time spent in performance of separately billed services Admission and Anticipated Discharge Date Admission Date: November 25, 2023 Subjective Patient seen and examined. Reports feeling anxious about upcoming procedure. Reported some abdominal discomfort overnight which has resolved. Reports some cough. Denies chest pain or shortness of breath at rest Denies any other complaints on review of system. Physical Exam Constitutional: + well hydrated; no acute distress Eyes: PERRL, conjunctivae normal, anicteric sclerae ENMT: +Hearing deficits Respiratory: On nasal cannula, diminished breath sounds Cardiovascular: S1 S2. Regular Gastrointestinal (Abdomen): Soft, non tender, non distended, normal bowel sounds Musculoskeletal: No pedal edema Neurologic: PERRL, EOMI, accommodation nl, no face palsy, no dysarthria Results & Data Results & Data Vital Signs (Past 12 Hours) Vital Signs Temp Pulse Pulse Resp BP BP Pulse Ox 11/30/23 10:27 11/30/23 07:41 36.6 C 99 H 16 136/82 95 11/30/23 07:03 100 H 11/30/23 03:20 36.6 C 101 H 18 122/72 94 11/30/23 00:00 11/29/23 23:14 36.7 C 99 H 18 144/77 H 93 11/29/23 22:58 102 H Pulse Ox O2 Del Method O2 Del Method O2 Flow Rate 11/30/23 10:27 Room Air 11/30/23 07:41 Nasal Cannula 2 11/30/23 07:03 11/30/23 03:20 Nasal Cannula 2 11/30/23 00:00 93 Nasal Cannula 11/29/23 23:14 Nasal Cannula 2 11/29/23 22:58 Laboratory Results Abnormal lab results 11/29/23 11/29/23 11/30/23 Range/Units 16:20 21:39 05:36 RBC 3.13 L 3.73 L (4.70-6.10) M/uL Hgb 9.4 L 11.2 L (14.0-18.0) g/dl Hct 29.1 L 33.8 L (42.0-52.0) % RDW Std Deviation 58.3 H 56.8 H (36.4-46.3) fL RDW Coeff of Dre 17.9 H 18.0 H (11.5-14.5) % Plt Count 406 H (130-400) K/uL MPV 9.3 L 8.9 L (9.4-12.4) fL Lymph # (Auto) 0.42 L (1.20-3.40) K/uL Immature Gran # (Auto) 0.23 H (0.01-0.20) K/uL Heparin Anti-Xa, Unfract 0.19 L (0.3-0.7) IU/ml Sodium 135 L (136-145) mmol/L Glucose 152 H (70-99(Fasting)) mg/dl Magnesium 1.6 L (1.7-2.4) mg/dl
[2023-11-30] MEDS ORDERED: fentaNYL citrate PF 100 MCG/2 ML VIAL ONE (12:46)
[2023-11-30] MEDS ORDERED: PROPOFOL IV EMULSION 10 MG/ML 20 ML VIAL IV ONE (12:46)
[2023-11-30] MEDS ORDERED: fentaNYL citrate PF 100 MCG/2 ML VIAL IV PRN (13:37)
[2023-11-30] MEDS ORDERED: ePHEDrine sulfate 50 MG/ML AMP IV PRN (13:37)
[2023-11-30] MEDS ORDERED: ONDANSETRON INJ 2 MG/ML 2 ML VIAL IV PRN (13:37)
[2023-11-30] MEDS ORDERED: ATROPINE SULFATE 0.1 MG/ML 10ML SYR IV PRN (13:37)
[2023-11-30] MEDS ORDERED: BENZOCAINE/TETRACAIN/BUTAM 50 APPLN/5 GM CAN EXT ONE (14:20)
--- NOTE | 2023-11-30 15:01 | GI REPORT ---
Patient Name: Conner Carpenter Procedure Date: 11/30/2023 2:08 PM Date of : 1935 Admit Type: Inpatient Age: 88 Gender: Male Attending MD: Frederick Daly DO, Procedure: Upper GI endoscopy Providers: Frederick Daly DO Referring MD: Osmani Valencia Indications: Place PEG due to dysphagia, Place PEG due to feeding difficulties secondary to oropharyngeal tumor Medicines: Monitored Anesthesia Care Complications: No immediate complications. Estimated Blood Loss: Estimated blood loss: none. Procedure: Pre-Anesthesia Assessment: - Prior to the procedure, a History and Physical was performed, and patient medications and allergies were reviewed. The patient's tolerance of previous anesthesia was also reviewed. The risks and benefits of the procedure and the sedation options and risks were discussed with the patient. All questions were answered, and informed consent was obtained. Prior Anticoagulants: The patient has taken Eliquis (apixaban), last dose was 4 days prior to procedure. ASA Grade Assessment: IV - A patient with severe systemic disease that is a constant threat to life. After reviewing the risks and benefits, the patient was deemed in satisfactory condition to undergo the procedure. After obtaining informed consent, the endoscope was passed under direct vision. Throughout the procedure, the patient's blood pressure, pulse, and oxygen saturations were monitored continuously. The Endoscope was introduced through the mouth, and advanced to the second part of duodenum. The upper GI endoscopy was accomplished without difficulty. The patient tolerated the procedure well. Findings: Patchy, white plaques were found in the upper third of the esophagus and in the middle third of the esophagus. A non-obstructing Schatzki ring was found in the distal esophagus. A small hiatal hernia was present. Placement of an externally removable PEG with no T-fasteners was successfully completed. The external bumper was at the 4.0 cm marking on the tube. The examined duodenum was normal. Impression: - Esophageal plaques were found, consistent with candidiasis. - Non-obstructing Schatzki ring. - Small hiatal hernia. - An externally removable PEG placement was successfully completed. - No specimens collected. Recommendation: - Return patient to [facility] for [facility] care. - Resume previous diet. - Continue present medications. - Diflucan (fluconazole) 200 mg via PEG daily for 3 weeks. - Please follow the post-PEG recommendations including: change dressing on top of bumper daily and start using PEG today. Frederick Daly, DO 11/30/2023 3:01:01 PM This report has been signed electronically. Note Initiated On: 11/30/2023 2:08 PM Number of Addenda: 0 I attest to the content of the Intraoperative Record and orders documented therein, exceptions below {[id number]}
--- NOTE | 2023-11-30 15:26 | Anesthesiology Progress Note ---
Date of Service November 30, 2023 Anesthesia Post Procedure Vital Signs Vital Signs: Temp Pulse Pulse Pulse Resp BP BP 11/30/23 15:15 102 H 18 137/83 11/30/23 15:05 99 H 21 140/90 11/30/23 14:55 36.2 C L 98 H 21 131/81 11/30/23 13:15 37.0 C 102 H 20 132/79 11/30/23 11:35 36.5 C 97 H 18 139/71 11/30/23 10:27 11/30/23 07:41 36.6 C 99 H 16 136/82 11/30/23 07:03 100 H 11/30/23 03:20 36.6 C 101 H 18 122/72 11/30/23 00:00 11/29/23 23:14 36.7 C 99 H 18 144/77 H 11/29/23 22:58 102 H 11/29/23 20:40 36.8 C 74 16 138/72 11/29/23 20:35 11/29/23 15:35 37.0 C 109 H 18 132/74 Pulse Ox Pulse Ox O2 Del Method O2 Del Method O2 Flow Rate 11/30/23 15:15 97 Oxymask 7 11/30/23 15:05 97 Oxymask 7 11/30/23 14:55 95 Oxymask 7 11/30/23 13:15 97 Nasal Cannula 2 11/30/23 11:35 94 Nasal Cannula 2 11/30/23 10:27 Room Air 11/30/23 07:41 95 Nasal Cannula 2 11/30/23 07:03 11/30/23 03:20 94 Nasal Cannula 2 11/30/23 00:00 93 Nasal Cannula 11/29/23 23:14 93 Nasal Cannula 2 11/29/23 22:58 11/29/23 20:40 94 Nasal Cannula 2 11/29/23 20:35 Nasal Cannula 2 11/29/23 15:35 93 Nasal Cannula 2 Transfer of Care Handoff Completed per policy Notes Mental Status: alert / awake / arousable and participated in evaluation Patient Amnestic to Procedure: Yes Nausea / Vomiting: adequately controlled Pain: adequately controlled Airway Patency, RR, SpO2: stable & adequate BP & HR: stable & adequate Hydration State: stable & adequate Anesthetic Complications: no major complications apparent and Pt Satisfied with anesthetic care
[2023-11-30] MEDS: hydrOXYzine HCl 10 MG TAB PO PRN (22:06)
[2023-12-01 06:15] LABS: Hematocrit (blood only) 31.6 % (42.0-52.0); Hemoglobin 10.5 g/dl (14.0-18.0); Mean Corpuscular Hemoglobin 29.8 pg (25.0-34.0); Mean Corpuscular Hgb Conc 33.2 g/dL (32.0-36.0); Mean Corpuscular Volume 89.8 fL (80.0-100.0); Mean Platelet Volume 9.1 fL (9.4-12.4); Platelet Count 326 K/uL (130-400); RDW Coefficient of Variation 17.6 % (11.5-14.5); RDW Standard Deviation 56.5 fL (36.4-46.3); Red Blood Count 3.52 M/uL (4.70-6.10); White Blood Count 5.36 K/ul (4.8-10.8)
[2023-12-01 06:26] LABS: BUN Creatinine Ratio 27.4 (10-20); Calcium 8.3 mg/dl (8.6-10.3); Creatinine Clr Calc Pharmacy 68.6 ml/min; Est GFR (African American) 95.3 ml/min; Est GFR (Non-African American) 82.2 ml/min; Magnesium 1.6 mg/dl (1.7-2.4); Phosphorus 3.2 mg/dl (2.5-4.9); Potassium 3.3 mmol/L (3.5-5.1)
[2023-12-01] MEDS: FLUCONAZOLE SUSP 200 MG/5 ML UDP PEG SCH (08:07)
[2023-12-01] MEDS: POTASSIUM CHLORIDE 20 MEQ/15 ML UDC PEG STA (10:16)
--- NOTE | 2023-12-01 10:48 | Gastroenterology Progress Note ---
Date of Service December 01, 2023 Assessment & Plan (1) Schatzki's ring: (2) PEG tube malfunction: (3) Esophageal candidiasis: Plan -PEG appropriately positioned; continue tube feeds. Discussed appropriate wound care with son regarding not putting anything under the external bumper -Complete a 21 day course of Fluconazole for esophageal candidiasis (400 mg on day 1, then 200 mg daily x 20 days) -Discussed continuing BID PPI on discharge to reduce aspiration/reflux issues. I faxed an order for Prevacid Solutabs 30 mg BID to the pharmacy at [facility] so that they can be administered via PEG. I will have my office staff begin working on prior authorization for this med. Admission and Anticipated Discharge Date Admission Date: November 25, 2023 Supervising Physician Co-Signing Physician Notes Agree with GAUTAM Pat as above Interviewed and examined patient and agree with above Abd: Soft, NT, PEG Tube in place Continue current therapy and supportive care Subjective Patient is an 88 yo male with a dislodged PEG tube, aspiration pneumonia, & metastatic tongue cancer. The patient underwent an EGD with PEG placement on 11/30/23. He was noted to have a Schatzki ring and esophageal bruno. There was successful placement of his PEG. He looks remarkably improved today--less lethargic, more conversational. PEG in place; feedings are going well. Tube appears to be in place without surrounding erythema or other concerns. There is gauze on top of the external bumper. No concerns at present. He is taking Protonix 40 mg BID while admitted. Son is at bedside. Review of Systems Gastrointestinal: no abdominal pain and no heartburn Physical Exam Constitutional: no acute distress Respiratory: no respiratory distress Gastrointestinal (Abdomen): PEG in place without surrounding erythema or concerns; Gauze on top of external bumper; abdomen non-tender Results & Data Results & Data Vital Signs (Past 12 Hours) Vital Signs Temp Pulse Pulse Resp BP Pulse Ox O2 Del Method 12/01/23 08:16 101 H 12/01/23 08:04 36.6 C 100 H 18 127/69 96 Nasal Cannula 12/01/23 02:52 36.6 C 85 16 119/67 94 Room Air 12/01/23 00:00 11/30/23 23:45 36.4 C L 100 H 18 126/71 95 Room Air 11/30/23 22:48 101 H O2 Del Method O2 Flow Rate 12/01/23 08:16 12/01/23 08:04 1 12/01/23 02:52 2 12/01/23 00:00 Nasal Cannula 11/30/23 23:45 2 11/30/23 22:48 PG Care Time/CCT Total # of Minutes Spent Total Time Spent with Patient: Total time spent is greater than 50% in coordination of care (as documented) at patient's floor/unit and/or counseling patient: Coding Level of Care Code 69236 SUB INP/OBS CARE 3/50MIN Diagnoses Schatzki's ring K22.2 PEG tube malfunction K94.23 Esophageal candidiasis B37.81
--- NOTE | 2023-12-01 14:55 | Hospitalist Progress Note ---
Date of Service December 01, 2023 Assessment & Plan (1) Acute hypoxemic respiratory failure: Plan: 88-year-old male with PMH of HTN, DVT on Eliquis, NSCLC ongoing radiation, oropharyngeal cancer undergoing chemoradiation status post PEG tube placement, metastatic bone disease on fentanyl patch, prostate cancer currently on Lupron and steroid treatment, chronic hyponatremia, chronic anemia [baseline hemoglobin around 11], past tobacco abuse presented to the ED after PCP office evaluation/concern of patient being weak and volume depleted/outpatient serum sodium noted to be 129. Patient complained of junky cough symptoms since the time of recent discharge associated with the usual shortness of breath with exertion. He is being managed for the following: Possible aspiration pneumonia/pneumonitis Recent entero-/rhinovirus URTI Sepsis POA: In the setting of aspiration pneumonia, tachypnea and tachycardia noted at presentation. Hypoxia: Patient tachypneic at presentation, VBG fairly WNL, no respiratory d istress noted. Currently on Unasyn since 11/25 Aspiration precaution. Speech therapy eval - f/u speech eval as OP. Continue with mouth care to reduce oral bacteria that can be contained in saliva and be potentially aspirated. Weaned off oxygen Replete hypomagnesemia and hypokalemia Monitor and replete electrolytes. Dislodged PEG tube: On 11/27. GI evaluated and replaced PEG on 11/30/23 Back on PEG feeding and PEG meds EGD also noted esophageal candidiasis. Patient currently on Fluconazole for 3 week treatment (started on 11/30/23) GI recommends continuing BID PPI. Will need Prevacid solutab 30mg bid via PEG on DC. Currently on IV PPI BID Acute on chronic hyponatremia: Recent outpatient sodium noted to be 129. 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 Admitting sodium of 132. Na is 136 today Other chronic medical conditions: Continue with/resume home meds as and when able. Hypertension Recurrent DVT on eliquis NSCLC. Finished radiation on 11/29/23 for now per Son Oropharyngeal cancer ongoing chemoradiation status post PEG tube placement Metastatic bone disease on fentanyl patch, Chronic anemia, hemoglobin at baseline Steroid-induced hyperglycemia rule out DM Past tobacco abuse PT OT JUAN anthony to assist with DC planning DVT prophylaxis. Eliquis Full code Patient Ms. Cindy Carpenter, contact #[phone]. Updated son//grandson at bedside Awaiting placement I spent a total of 45 minutes coordinating, documenting and providing care for this patient excluding time spent in performance of separately billed services Admission and Anticipated Discharge Date Admission Date: November 25, 2023 Subjective Patient seen and examined. Reports feeling better today No new complaints Reports cough is improved. Off oxygen Denies chest pain or shortness of breath at rest Denies any other complaints on review of system Physical Exam Constitutional: + well hydrated; no acute distress Eyes: PERRL, conjunctivae normal, anicteric sclerae ENMT: + Hearing deficits Respiratory: normal respiratory effort; no respiratory distress On room air. Diminished breath sounds Cardiovascular: S1 S2 Gastrointestinal (Abdomen): Soft, non tender, PEG tube in situ, normal Bowel sounds Musculoskeletal: No pedal edema Neurologic: PERRL, EOMI, accommodation nl, no face palsy, no dysarthria Psychiatric: A+Ox3, euthymic affect Results & Data Results & Data Vital Signs (Past 12 Hours) Vital Signs Temp Pulse Pulse Resp BP Pulse Ox O2 Del Method 12/01/23 10:24 Room Air 12/01/23 08:16 101 H 12/01/23 08:04 36.6 C 100 H 18 127/69 96 Nasal Cannula O2 Flow Rate 12/01/23 10:24 12/01/23 08:16 12/01/23 08:04 1 Laboratory Results Abnormal lab results 12/01/23 Range/Units 05:33 RBC 3.52 L (4.70-6.10) M/uL Hgb 10.5 L (14.0-18.0) g/dl Hct 31.6 L (42.0-52.0) % RDW Std Deviation 56.5 H (36.4-46.3) fL RDW Coeff of Dre 17.6 H (11.5-14.5) % MPV 9.1 L (9.4-12.4) fL Potassium 3.3 L (3.5-5.1) mmol/L BUN/Creatinine Ratio 27.4 H (10-20) Glucose 104 H (70-99(Fasting)) mg/dl Calcium 8.3 L (8.6-10.3) mg/dl Magnesium 1.6 L (1.7-2.4) mg/dl
[2023-12-01] MEDS: MAGNESIUM SULFATE / D5W 1 GM/100 ML BAG IV ONE (16:47)
[2023-12-02 02:58] VITALS: RESP 18
[2023-12-02 07:18] LABS: Hematocrit (blood only) 31.8 % (42.0-52.0); Hemoglobin 10.5 g/dl (14.0-18.0); Mean Corpuscular Hemoglobin 29.8 pg (25.0-34.0); Mean Corpuscular Volume 90.3 fL (80.0-100.0); Mean Platelet Volume 9.1 fL (9.4-12.4); Platelet Count 336 K/uL (130-400); RDW Coefficient of Variation 18.1 % (11.5-14.5); RDW Standard Deviation 56.4 fL (36.4-46.3); Red Blood Count 3.52 M/uL (4.70-6.10); White Blood Count 4.62 K/ul (4.8-10.8)
[2023-12-02 07:35] LABS: BUN Creatinine Ratio 32.9 (10-20); Calcium 8.4 mg/dl (8.6-10.3); Creatinine Clr Calc Pharmacy 68.6 ml/min; Est GFR (African American) 95.3 ml/min; Est GFR (Non-African American) 82.2 ml/min; Magnesium 1.6 mg/dl (1.7-2.4); Phosphorus 2.3 mg/dl (2.5-4.9); Potassium 3.3 mmol/L (3.5-5.1)
[2023-12-02] MEDS: POTASSIUM CHLORIDE 20 MEQ/15 ML UDC PEG STA (08:42)
[2023-12-02] MEDS: MAGNESIUM OXIDE 400 MG TAB PEG SCH (08:42)
[2023-12-02] MEDS: MAGNESIUM SULFATE / D5W 1 GM/100 ML BAG IV ONE (08:43)
[2023-12-02 11:27] VITALS: PULSE 87; TEMP 97.5; O2SAT 93
--- NOTE | 2023-12-02 11:58 | Discharge Summary ---
Date of Service December 02, 2023 Admission HPI Per Admitting Provider History obtained from patient, family, and records. History somewhat limited from patient secondary to hearing impairment. 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 Patient admitted for 1 day last 11/20 for confusion attributed to entero- /rhinovirus infection. Patient discharged home as per family request. Family declined PT OT eval. Junky cough symptoms at time of discharge as per patient. No chest pain, usual SOB with exertion as per patient. Occasional gagging with secretions. Patient seen on follow-up at PCP's office today. PCP concerned about patient being weak and volume depleted. Outpatient serum sodium noted to be 129. No pneumonia on outpatient CXR. Patient directed to ER for evaluation. Lowest O2 sats of 80s documented at the ER. 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 Admission Exam Per Admitting Provider GENERAL: Comfortable, pleasant, episodic tachypnea during speech, slightly hard of hearing, SKIN: Pallor, warm HEENT: Partial alopecia, palpebral conjunctivae, no ptosis, dry buccal mucosa, nasal cannula in place NECK : Supple, neck erythema, minimal tenderness CHEST : Decreased breath sounds, scattered expiratory wheezes, no tenderness HEART : Tachycardic, no obvious murmurs ABDOMEN: Some distention, PEG tube in place EXTREMITIES : Minimal LE swelling, no LE slightly hard of hearing, tenderness, no other conspicuous deformities noted NEUROLOGIC : Coherent, no facial asymmetry, slightly hard of hearing Principal Diagnosis Acute respiratory failure with hypoxia Sepsis Possible aspiration pneumonia Dislodged PEG, now replaced Candidal esophagitis Discharge Exam Constitutional + well hydrated; no acute distress Eyes PERRL, conjunctivae normal, anicteric sclerae ENMT +Hearing deficits Respiratory normal respiratory effort; no respiratory distress On room air. Diminished breath sounds lung bases Cardiovascular Rate/Rhythm: regular rate and regular rhythm Gastrointestinal (Abdomen) Soft, nontender, +PEG in situ, Bowel sounds normoactive Musculoskeletal No pedal edema Neurologic PERRL, EOMI, accommodation nl, no face palsy, no dysarthria Psychiatric A+Ox3, euthymic affect Discharge Data Allergies Allergy/AdvReac Type Severity Reaction Status Date / Time No Known Allergies Allergy Verified 11/25/23 19:57 Consultations 11/25/23 19:56 ED Decision to Admit Stat 11/27/23 14:54 Consult Radiation Oncology Routine 11/28/23 06:27 Consult Gastroenterology Routine Procedures Performed Operation Date: 11/30/23 16:30 <No data on this case meets the specified criteria> Hospital Course (1) Acute hypoxemic respiratory failure: 88-year-old male with PMH of HTN, DVT on Eliquis, NSCLC ongoing radiation, oropharyngeal cancer undergoing chemoradiation status post PEG tube placement, metastatic bone disease on fentanyl patch, prostate cancer currently on Lupron and steroid treatment, chronic hyponatremia, chronic anemia [baseline hemoglobin around 11], past tobacco abuse presented to the ED after PCP office evaluation/concern of patient being weak and volume depleted/outpatient serum sodium noted to be 129. Patient complained of junky cough symptoms since the time of recent discharge associated with the usual shortness of breath with exertion. He is being managed for the following: Possible aspiration pneumonia/pneumonitis Recent entero-/rhinovirus URTI Sepsis POA: In the setting of aspiration pneumonia, tachypnea and tachycardia noted at presentation. Hypoxia: Patient tachypneic at presentation, VBG fairly WNL, no respiratory distress noted. Treated with Unasyn. Completed 7 days of antibiotics Aspiration precaution. Speech therapy eval - f/u speech eval as OP. Continue with mouth care to reduce oral bacteria that can be contained in saliva and be potentially aspirated. Weaned off oxygen Feeding via PEG Dislodged PEG tube: On 11/27. GI evaluated and replaced PEG on 11/30/23 Back on PEG feeding and meds via PEG EGD also noted esophageal candidiasis. Patient currently on Fluconazole for 3 week treatment (started on 11/30/23) GI recommends continuing BID PPI. Discharged Prevacid solutab 30mg bid via PEG on DC. Tube feeding instructions: -Nutren 2.0 at 250ml at 6AM, 10AM, 2PM, 6PM and 10PM -Free water flushes 120ml before and after each feeding Acute on chronic hyponatremia: Recent outpatient sodium noted to be 129. 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 Admitting sodium of 132. Na is 138 today Home lasix changed from daily to prn Continue home PEG potassium Started on magnesium oxide via PEG Other chronic medical conditions: Continue with/resume home meds as and when able. Hypertension Recurrent DVT on eliquis NSCLC. Finished radiation on 11/29/23 for now per Son Oropharyngeal cancer ongoing chemoradiation status post PEG tube placement Metastatic bone disease on fentanyl patch, Chronic anemia, hemoglobin at baseline Steroid-induced hyperglycemia rule out DM Past tobacco abuse Updated at bedside Patient discharged to intermediate facility Total Time Total Time Spent Total Time Spent (In Minutes): 35 Total Time Includes: Examination of the Patient, Discharge Planning, Medication Reconciliation and Other Discharge Plan Discharge Items Patient Disposition: Transfer Alf Fac Reason For Visit: Cough Discharge Diagnosis: Acute respiratory failure with hypoxia Sepsis Possible aspiration pneumonia Dislodged PEG, now replaced Candidal esophagitis Activity: As commented below Activity Comment: Per Physical Therapist recommendations Non-emergency contact: Primary Care Provider Call non-emergency contact if: you have any medication questions and your symptoms worsen Follow-up/Referrals: Brenda Mcknight PA-C [[facility]] - 01/04/24 9:30 am (You have a Radiation/Oncology follow up/CT Simulation appt scheduled. Rad/Onc is located on the ground floor of the [facility] [place] at the desk in the [facility]. If you are unable to keep this appt, please call [phone].) Osmani Valencia, DO [Primary Care Provider] - Diet: Other - See Diet Comment Diet Comment: Feeding via PEG tube: Jesus Attending Provider Instructions: Mr Carpenter You came to the hospital complaining of cough You were managed for the above listed diagnoses. You completed antibiotics inpatient You had your PEG tube replaced on 11/30/23 You were also started on treatment for esophageal candidiasis based on findings on endoscopy Please continue tube feeding as detailed below Your lasix was changed to daily as needed for edema Please ensure follow up with your Oncologist and Primary Doctor It was a pleasure takign care of you. Jesus Line Service Person Provider Instructions: Tube feeding instructions: -Nutren 2.0 at 250ml at 6AM, 10AM, 2PM, 6PM and 10PM -Free water flushes 120ml before and after each feeding Pending Studies at Discharge: No Stand-Alone Forms: [employer], Smoking Cessation Skilled Items Patient informed of condition?: Yes DNR: No Discharge Level of Care: Skilled Communicable Disease: No Discharge Prognosis: Stable Lines: None Urinary Catheter: No Medications and DC Order Prescriptions: New fluconazole 40 mg/mL Suspension For Reconstitution 200 mg PEG QAM 19 Days Qty: 95 0RF Nutren 2.0 0.08 gram-2 kcal/mL Liquid See Rx Instructions .ROUTE .COMPLEX Qty: 6000 0RF Rx Instructions: Nutren 2.0 250ml at 6AM, 10AM, 2PM, 6PM and 10PM with water flushes 120ml before and after each feeding magnesium oxide 400 mg (241.3 mg magnesium) Tablet 400 mg PEG QAM Qty: 30 0RF Continued nutritional supplements Liquid 250 ea feeding tube QID prochlorperazine maleate 10 mg tablet 10 mg feeding tube Q6H PRN (Reason: NAUSEA/VOMITING) sennosides [senna] 8.6 mg Tablet 8.6 mg feeding tube BID PRN (Reason: Constipation) Qty: 20 0RF ondansetron HCl 8 mg tablet 8 mg feeding tube Q8H PRN (Reason: NAUSEA/VOMITING) Qty: 30 0RF prednisone 5 mg tablet 5 mg feeding tube BID Qty: 60 0RF Rx Instructions: TAKES QAM AND 1500 docusate sodium 50 mg/15 mL Syrup 100 mg feeding tube BID Qty: 118 0RF potassium chloride 20 mEq packet 20 meq feeding tube QAM Qty: 30 0RF amlodipine [Norvasc] 10 mg tablet 10 mg feeding tube QAM Qty: 30 0RF sertraline [Zoloft] 25 mg tablet 25 mg feeding tube QAM Qty: 30 0RF fentanyl 25 mcg/hr patch 72 hour 25 mcg transdermal .Q72HR Qty: 10 0RF Rx Instructions: TOTAL DOSE 37 MCG--WITH 12 MCG PATCH polyethylene glycol 3350 17 gram/dose powder 17 g feeding tube QPM Qty: 238 0RF fluticasone propionate [Allergy Relief (fluticasone)] 50 mcg/actuation spray,suspension 2 spray intranasal DAILY PRN (Reason: Nasal Congestion) Qty: 16 0RF Rx Instructions: administer into each nostril fentanyl 12 mcg/hr patch 72 hour 12 mcg transdermal .Q72HR Qty: 10 0RF Rx Instructions: TOTAL DOSE 37 MCG--WITH 25 MCG PATCH melatonin 5 mg Tablet 5 mg feeding tube HS Qty: 30 0RF Eliquis 2.5 mg tablet 2.5 mg feeding tube BID Qty: 60 0RF Calcium W/Vitamin D Liquid 1 dose feeding tube DAILY Qty: 0 0RF tramadol 50 mg Tablet 50 mg feeding tube Q6H PRN (Reason: Pain) Qty: 20 0RF naloxone 4 mg/actuation [place],Non-Aerosol 4 mg INTRANASAL DIRECTED PRN (Reason: Opioid Overdose) Qty: 2 0RF Changed furosemide 20 mg tablet 20 mg feeding tube QAM PRN (Reason: edema) Qty: 20 0RF lansoprazole [Prevacid SoluTab] 30 mg tablet,disintegrat, delay rel 30 mg feeding tube BID 90 Days Qty: 60 0RF guaifenesin 200 mg/5 mL liquid 200 mg feeding tube Q6H PRN (Reason: Cough) Qty: 118 0RF ascorbic acid (vitamin C) 500 mg/5 mL Liquid 100 mg PO QDL Qty: 120 0RF Rx Instructions: VIA FEEDING TUBE Discharge Orders: Discharge Order (Routine); Ordered 12/02/23 Ordered By: Saritha Heard Admission Data Admit Date/Time: 11/25/23 23:16 Attending Provider: Saritha Heard I. Admit Provider: Steve Dumont Primary Care Provider: Osmani Valencia Other Providers: [place] [place]; [facility]; Naomi Kim; Steve Dumont; Dale Holguin; Epifanio Lowe Other Interventions: Discharge Summary Assessment (RN) Last Done: 12/02/23 12:04
[2023-12-02 12:06] VITALS: BP 142/73
== END 2023-12-02 12:37 | DRG 871 ==
LOC: ED 15:39 → SUATTDRO 23:16 → EDINP 23:16 → 2W 11-26 23:08
DX: C79.51 Secondary malignant neoplasm of bone; C34.90 Malignant neoplasm of unspecified part of unspecified bronchus or lung; R62.7 Adult failure to thrive; K22.2 Esophageal obstruction; C01 Malignant neoplasm of base of tongue; A41.9 Sepsis, unspecified organism; K94.29 Other complications of gastrostomy; B37.81 Candidal esophagitis; E83.42 Hypomagnesemia; Z87.891 Personal history of nicotine dependence; J96.01 Acute respiratory failure with hypoxia; Y92.239 Unspecified place in hospital as the place of occurrence of the external cause; Z79.01 Long term (current) use of anticoagulants; D64.9 Anemia, unspecified; I10 Essential (primary) hypertension; K92.2 Gastrointestinal hemorrhage, unspecified; E87.6 Hypokalemia; C61 Malignant neoplasm of prostate; Y73.2 Prosthetic and other implants, materials and accessory gastroenterology and urology devices associated with adverse incidents; J69.0 Pneumonitis due to inhalation of food and vomit; Z92.3 Personal history of irradiation; Z86.718 Personal history of other venous thrombosis and embolism; E22.2 Syndrome of inappropriate secretion of antidiuretic hormone; K94.23 Gastrostomy malfunction